=== PATIENT | female | born 1940 | race Caucasian/White ===

== ENCOUNTER 2018-03-21 14:31 | Emergency (ER) | payer MEDICARE, OTHER ==
[2018-03-21] MEDS ORDERED: SODIUM CHLORIDE 0.9% 1,000 ML IV STA ×2 (15:11)
[2018-03-21] MEDS ORDERED: MORPHINE SULFATE 2 MG/ML SYRINGE IVP ONE (15:12)
[2018-03-21] MEDS ORDERED: TOPICAL SKIN ADHESIVE 1 EACH AMP TOPICAL ONE (15:47)
[2018-03-21 16:15] LABS: Basophils % (A) 0 %; Eosinophils # (A) 0.2 k/uL (0-0.7); Eosinophils % (A) 1 %; HCT 39.9 % (34.0-46.0); HGB 13.2 gm/dL (11.4-16.0); Lymphocytes # (A) 2.7 k/uL (1.0-4.8); Lymphocytes % (A) 25 %; MCH 29.3 pg (25.0-35.0); Mean Platelet Volume 6.9; Monocytes # (A) 0.6 k/uL (0-1.0); Monocytes % (A) 5 %; Neutrophils # (A) 7.1 k/uL (1.3-7.7); Neutrophils % (A) 66 %; Platelet Count 211 k/uL (150-450); RBC 4.49 m/uL (3.80-5.40); WBC 10.8 k/uL (3.8-10.6)
[2018-03-21 16:27] LABS: INR 1.1 (<1.2); Partial Thromboplastin Time 22.4 sec (22.0-30.0); Prothrombin Time 10.3 sec (9.0-12.0)
[2018-03-21 16:31] LABS: Creatine Kinase 83 U/L (30-135)
[2018-03-21 16:33] LABS: ALT 35 U/L (9-52); AST 27 U/L (14-36); Albumin 3.8 g/dL (3.5-5.0); Alcohol <10 mg/dL; Alkaline Phosphatase 58 U/L (38-126); Anion Gap 10 mmol/L; Blood Urea Nitrogen 16 mg/dL (7-17); Calcium 9.3 mg/dL (8.4-10.2); Carbon Dioxide 26 mmol/L (22-30); Chloride 101 mmol/L (98-107); Glucose 140 mg/dL (74-99); Sodium 137 mmol/L (137-145); Total Bilirubin 0.3 mg/dL (0.2-1.3); Total Protein 6.3 g/dL (6.3-8.2)
[2018-03-21 16:44] LABS: Creatine Kinase MB 1.3 ng/mL (0.0-2.4); Troponin I <0.012 ng/mL (0.000-0.034)
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
[2018-03-21 18:39] VITALS: BP 177/70; PULSE 55; RESP 18; TEMP 97.2
== END 2018-03-21 18:38 | disposition home or self-care (01) ==
LOC: EC 14:31
DX: S61.411A Laceration without foreign body of right hand, initial encounter (principal); S20.219A Contusion of unspecified front wall of thorax, initial encounter; M54.2 Cervicalgia; R10.9 Unspecified abdominal pain; I44.0 Atrioventricular block, first degree; J44.9 Chronic obstructive pulmonary disease, unspecified; E11.9 Type 2 diabetes mellitus without complications; K21.9 Gastro-esophageal reflux disease without esophagitis; E78.5 Hyperlipidemia, unspecified; I10 Essential (primary) hypertension; I25.2 Old myocardial infarction; F41.9 Anxiety disorder, unspecified; F32.9 Major depressive disorder, single episode, unspecified; G47.30 Sleep apnea, unspecified; Z99.89 Dependence on other enabling machines and devices; Z87.01 Personal history of pneumonia (recurrent); Z87.891 Personal history of nicotine dependence; Z98.84 Bariatric surgery status; Z90.49 Acquired absence of other specified parts of digestive tract; Z90.710 Acquired absence of both cervix and uterus; Z98.890 Other specified postprocedural states; Z79.51 Long term (current) use of inhaled steroids; Z79.82 Long term (current) use of aspirin; Z79.84 Long term (current) use of oral hypoglycemic drugs; Z79.899 Other long term (current) drug therapy; Z88.2 Allergy status to sulfonamides; Z88.8 Allergy status to other drugs, medicaments and biological substances; V43.52XA Car driver injured in collision with other type car in traffic accident, initial encounter; Y92.89 Other specified places as the place of occurrence of the external cause
CPT/HCPCS: 36415; 93005; 86900; 86901; 80053; 82550; 82553; 84484; 85025; 85610; 85730; 86850; 80320; 72170; 73120; 71045; 72125; 70450; 71260; 74177; 99285; 12001; 96374; 96361 ×3; J2270; Q9967

== ENCOUNTER → 2018-08-05 | Outpatient (CLI) | payer MEDICARE, OTHER ==
[2018-08-05 14:30] VITALS: BP 145/78; PULSE 51; RESP 18
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
== END ==
LOC: PNWHC3 13:39
PROVIDERS: ATTEND Anesthesiology
DX: G89.29 Other chronic pain (principal); M54.5 Low back pain; J45.909 Unspecified asthma, uncomplicated; J44.9 Chronic obstructive pulmonary disease, unspecified; E11.9 Type 2 diabetes mellitus without complications; Z87.891 Personal history of nicotine dependence; Z88.8 Allergy status to other drugs, medicaments and biological substances; Z88.2 Allergy status to sulfonamides; Z79.899 Other long term (current) drug therapy; Z79.84 Long term (current) use of oral hypoglycemic drugs
CPT/HCPCS: 99211

== ENCOUNTER → 2018-08-24 | Day surgery (SDC) | payer MEDICARE, OTHER ==
[2018-08-18 18:32] VITALS: BMI 36.6
[~2018-08-24] MED LIST: SODIUM CHLORIDE 0.9% 500 ML 500 ML IV ONE; SODIUM CHLORIDE 0.9% 500 ML 500 ML IV SCH; hydrALAZINE HCL 20 MG/ML 1 ML VIAL IVP ONE; hydrALAZINE HCL 20 MG/ML 1 ML VIAL ONE
[2018-08-24 08:46] VITALS: TEMP 97.5
[2018-08-24 08:54] LABS: Glucose,Whole Blood 89 mg/dL (75-99)
--- NOTE | 2018-08-24 09:16 | P.PCN ---
Date of Procedure: 08/24/18 Procedure(s) Performed: PREOPERATIVE DIAGNOSIS: 1- Lumbar Degenerative Disc Diseases 2-Lumbar radiculopathy POSTOPERATIVE DIAGNOSIS: 1-Lumber Degenerative Disc Diseases 2-Lumbar radiculopathy PROCEDURE 1. Lumbar epidural steroid injection under fluoroscopic guidance at the L4-5 level. 2. Lumbar epidurogram. ANESTHESIA: Local with 1% lidocaine 3 ml and , moderate sedation with intravenous Versed 2 mg ,and fentanyle 50 Mcg EBL: Minimal PROCEDURE INDICATION: The patient with low back pain and radiculitis symptoms unresponsive to conservative treatment. Fluoroscopy was used to optimize visualization of the needle placement and to maximize safety. PROCEDURE DESCRIPTION / TECHNIQUE: The patient was seen and identified in the preoperative area. Risks, benefits , complications including but not limited to infections ,bleeding ,allergic reaction to the medications ,nerve damage and not complete pain releife , and alternatives were discussed with the patient. The patient agreed to proceed with the procedure and signed the consent. IV was started, and vital signs were stable. Patient was taken to the OR and time out was completed. The patient was placed in the prone position on procedure table and a pillow was placed under the abdomen to reduce lumbar lordosis. The lumbosacral area was prepped and draped in the usual sterile fashion.ere closely monitored during the procedure. Conscious sedation was used during the procedure to decrease patients anxiety. Vital signs was monitered during the entire procedure. Using anterior-posterior fluoroscopy, the L4-5 interlaminar space was identified and the skin over this site was marked and then infiltrated with 1% lidocaine subcutaneously. Subsequently, a 20-gauge Tuohy epidural needle was inserted and advanced toward the epidural space using the ``Loss of resistance technique and guided by AP and lateral fluoroscopy. The correct needle position in the epidural space was verified with the injection of 2 mL of the water soluble contrast dye Isovue 200 contrast and observing an excellent epidurogram with the epidural spread of the dye, after negative aspiration for blood and CSF and in the absence of paresthesias. Again after negative aspiration, a 6 ml mixture containing 40 mg of Depo-medrol , and 2 ml of preservative free Normal Saline, and 2 ml of preservative free lidocaine 1% solution was injected and a washout of epidurogram was seen. Needle was withdrawn intact, skin was cleansed, and bandages were applied. COMPLICATIONS: None DISPOSITION / PLANS: The patient was placed in a supine position and transferred to the recovery area in a stable condition for observation. There was no evidence of lower extremity motor or sensory deficit after the procedure. Patient was discharged from the recovery room after meeting discharge criteria. Home discharge instructions were given to the patient by the staff. The patient was reexamined prior to discharge. The patient will schedule a follow up in the clinic in 2-4 weeks.
[2018-08-24 09:29] VITALS: RESP 18
--- NOTE | 2018-08-24 09:30 | FL ---
EXAMINATION TYPE: FL guided pain mgmt statistic DATE OF EXAM: 08/24/2018 COMPARISON: NONE HISTORY: Back pain TECHNIQUE: Fluoroscopy. FINDINGS/IMPRESSION: Fluoroscopic guidance was provided during procedure performed by Dr. Santiago. A total of 7 seconds of fluoroscopic time was utilized during the procedure and 1 spot images was ac quired demonstrating localization of the lumbar spine.
[2018-08-24 09:53] VITALS: BP 187/104; PULSE 53
== END | disposition home or self-care (01) ==
LOC: ORPAIN 07:45
PROVIDERS: ATTEND Specialist
DX: M51.16 Intervertebral disc disorders with radiculopathy, lumbar region (principal); I10 Essential (primary) hypertension; I25.10 Atherosclerotic heart disease of native coronary artery without angina pectoris; J44.9 Chronic obstructive pulmonary disease, unspecified; Z88.2 Allergy status to sulfonamides; Z88.8 Allergy status to other drugs, medicaments and biological substances
CPT/HCPCS: 62323; J2250; J0360; J1030; J3010; Q9966; 99152

== ENCOUNTER 2018-09-08 09:06 | Day surgery (SDC) | payer MEDICARE, OTHER ==
[2018-09-04 14:49] VITALS: BMI 36.0
[~2018-09-08 09:06] MED LIST changes: -SODIUM CHLORIDE 0.9% 500 ML 500 ML IV ONE; -hydrALAZINE HCL 20 MG/ML 1 ML VIAL IVP ONE; -hydrALAZINE HCL 20 MG/ML 1 ML VIAL ONE
[2018-09-08 10:08] VITALS: RESP 16; TEMP 97.3
[2018-09-08] MEDS ORDERED: LACTATED RINGERS 1,000 ML IV ONE (10:08)
[2018-09-08 10:09] LABS: Glucose,Whole Blood 100 mg/dL (75-99)
[2018-09-08] MEDS ORDERED: LIDOCAINE 1% 20 ML VIAL (10MG/ML) FOR IV START INTRADERMA ONE (10:09)
--- NOTE | 2018-09-08 11:05 | P.PCN ---
Date of Procedure: 09/08/18 Surgeon: Shawn Kuhn Pathology: none sent Condition: stable Disposition: PACU Description of Procedure: PREOPERATIVE DIAGNOSIS: 1-Lumbar radiculopathy 2- Lumber Degenerative Disc Diseases. POSTOPERATIVE DIAGNOSIS: 1-Lumbar radiculopathy. 2-Lumbar Degenerative Disc Diseases PROCEDURE 1. Lumbar epidural steroid injection under fluoroscopic guidance at the L4-5 level. In the left paramedian approach 2. Lumbar epidurogram. ANESTHESIA: Local with 1% lidocaine; and IV moderate conscious sedation with Versed and fentanyl EBL: Minimal PROCEDURE INDICATION: The patient with low back pain and radiculitis symptoms unresponsive to conservative treatment. Fluoroscopy was used to optimize visualization of the needle placement and to maximize safety. PROCEDURE DESCRIPTION / TECHNIQUE: The patient was seen and identified in the preoperative area. Risks, benefits , complications including but not limited to infections ,bleeding ,allergic reaction to the medications ,nerve damage and not complete pain relief , and alternatives were discussed with the patient. The patient agreed to proceed with the procedure and signed the consent. IV was started, and vital signs were stable. Patient was taken to the OR and time out was completed. The patient was placed in the prone position on procedure table and a pillow was placed under the abdomen to reduce lumbar lordosis. The lumbosacral area was prepped and draped in the usual sterile fashion with ChloraPrep.Patient was closely monitored during the procedure. Conscious sedation was used during the procedure to decrease patients anxiety. Vital signs were monitered during the entire procedure. Using anterior-posterior fluoroscopy, the L4-5 interlaminar space was identified and the skin over this site was marked and then infiltrated with 1% lidocaine subcutaneously. Subsequently, a 20-gauge Tuohy epidural needle was inserted and advanced toward the epidural space using the Loss of resistance to air technique and guided by AP and lateral fluoroscopy. The correct needle position in the epidural space was verified with the injection of 1 mL of the water soluble contrast dye Omnipaque 180 contrast and observing an excellent epidurogram with the epidural spread of the dye, after negative aspiration for blood and CSF and in the absence of paresthesias. Again after negative aspiration, a 8 ml mixture containing 40 mg of Kenalog and 5 ml of preservative free Normal Saline, and 2 ml of preservative free ropivacaine 0.5% solution was injected and a washout of epidurogram was seen. Needle was withdrawn intact, skin was cleansed, and bandages were applied. patient tolerated procedure well and was transferred to PACU in stable condition. COMPLICATIONS: None
[2018-09-08] MEDS ORDERED: IV FLUID CONTINUATION 600 ML IV ONE (11:10)
--- NOTE | 2018-09-08 11:49 | FL ---
Fluoroscopy INDICATION: Pain FINDINGS: Fluoroscopy time: 11 seconds. Images obtained: 2. IMPRESSIONS: 1. Documentation of fluoroscopy.
[2018-09-08] MEDS ORDERED: hydrALAZINE HCL 20 MG/ML 1 ML VIAL IV ONE (11:53)
[2018-09-08 12:18] VITALS: BP 194/67; PULSE 54
== END 2018-09-08 12:48 | disposition home or self-care (01) ==
LOC: ORPAIN 09:06
PROVIDERS: ATTEND Anesthesiology
DX: M51.36 Other intervertebral disc degeneration, lumbar region (principal); I10 Essential (primary) hypertension; E11.9 Type 2 diabetes mellitus without complications; Z88.2 Allergy status to sulfonamides; Z88.8 Allergy status to other drugs, medicaments and biological substances
CPT/HCPCS: 62323; J2250; J0360; J3301; J3010; Q9966; 99152

== ENCOUNTER → 2018-10-30 | Outpatient (CLI) | payer MEDICARE, OTHER ==
[2018-10-30 12:46] LABS: HCT 43.2 % (34.0-46.0); HGB 13.3 gm/dL (11.4-16.0); Hypochromasia Moderate; MCH 29.3 pg (25.0-35.0); MCHC 30.9 g/dL (31.0-37.0); MCV 94.8 fL (80.0-100.0); Mean Platelet Volume 6.8; Platelet Count 234 k/uL (150-450); RBC 4.56 m/uL (3.80-5.40); RDW 15.5 % (11.5-15.5); WBC 10.9 k/uL (3.8-10.6)
[2018-10-30 12:56] LABS: Potassium 4.6 mmol/L (3.5-5.1)
== END | disposition home or self-care (01) ==
LOC: LABPAT 11:49
PROVIDERS: ATTEND Internal Medicine Cardiovascular Disease
DX: Z01.812 Encounter for preprocedural laboratory examination (principal); I25.10 Atherosclerotic heart disease of native coronary artery without angina pectoris; I10 Essential (primary) hypertension
CPT/HCPCS: 36415; 80051; 82565; 84520; 85027

== ENCOUNTER 2018-11-03 06:55 | Day surgery (SDC) | payer MEDICARE, OTHER ==
[2018-10-30 10:23] VITALS: BMI 35.6
[2018-11-03] MEDS ORDERED: SODIUM CHLORIDE 0.9% 1,000 ML in EMPTY BAG 1 BAG IV ONE (06:58)
[2018-11-03] MEDS ORDERED: ALPRAZolam 0.25 MG TAB PO PRN ×2 (06:58→10:20)
[2018-11-03] MEDS ORDERED: ALPRAZolam 0.5 MG TAB PO PRN (06:58)
[2018-11-03] MEDS ORDERED: ATORVASTATIN 80 MG TAB PO STA (06:58)
[2018-11-03] MEDS ORDERED: ASPIRIN 325 MG TAB PO STA (06:58)
[2018-11-03] MEDS ORDERED: NITROGLYCERIN SL TABS 0.4 MG TAB SUBLINGUAL PRN ×2 (06:58→10:18)
[2018-11-03 07:22] LABS: Glucose,Whole Blood 151 mg/dL (75-99)
[2018-11-03 07:59] VITALS: RESP 18
[2018-11-03] MEDS ORDERED: MIDAZOLAM 2 MG/2 ML VIAL IVP ONE (08:05)
[2018-11-03] MEDS ORDERED: fentaNYL (PF) 50 MCG/ML 2 ML AMP IVP ONE (08:05)
[2018-11-03] MEDS ORDERED: LIDOCAINE 1% INJ 10MG/ML (20 ML MDV) SQ ONE (08:07)
[2018-11-03] MEDS ORDERED: hydrALAZINE HCL 20 MG/ML 1 ML VIAL IV ONE (08:31)
[2018-11-03 08:34] LABS: O2 Sat Blood Gas 86.7 %
[2018-11-03 08:38] LABS: O2 Sat Blood Gas 47.6 %
[2018-11-03] MEDS ORDERED: IOPAMIDOL-370 50ML BTL INJ ONE (08:39)
[2018-11-03 08:40] LABS: O2 Sat Blood Gas 47.9 %
[2018-11-03] MEDS ORDERED: CLOPIDOGREL 75 MG TAB PO ONE (09:10)
[2018-11-03] MEDS ORDERED: BIVALIRUDIN BOLUS 250 MG/50 ML IV ONE (09:10)
--- NOTE | 2018-11-03 09:10 | P.CARDCATH ---
Date of Procedure: 11/03/18 Preoperative Diagnosis: Symptoms of angina and CHF with moderate to severe mitral regurgitation by echo. Postoperative Diagnosis: Moderate mitral regurgitation. Known total occlusion of the circumflex and critical lesion in the mid RCA. 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 She was found to have evidence of moderate to severe mitral regurgitation on the echo. Patient is still having symptoms of shortness of breath and tightness and advised to have a cardiac catheterization for definitive diagnosis. CONSENT:I have discussed the risks, benefits and alternative therapies for the above-mentioned procedure and for both sedation/analgesia as well as necessary blood product administration, if indicated, as they pertain to this patient. The patient has indicated understanding and acceptance of the risks and procedures discussed. PROCEDURE: Left heart catheterization: Patient was brought to the lab in a fasting state. Patient was given some IV sedation. The right groin is infiltrated with lidocaine and right femoral artery was entered using Seldinger technique. A 6-Kyrgyz catheter was left in place and selective coronary arteriography and left ventriculography was performed. Patient tolerated the procedure well. Right heart catheterization: The right femoral vein was entered using Seldinger technique, After groin is infiltrated with lidocaine . Right heart catheterization was done with [place]-Adama catheter using fluoroscopy. Patient tolerated the procedure well. Patient went on to have stent placement of the RCA by Dr. Moss. No immediate complaints were noted Conscious Sedation: Versed 0.5mg Fentanyl 12.5 g Duration 37minutes HEMODYNAMICS: The right heart catheterization: Right atrial pressure was 12 to 15: Right ventricular pressure is 45/12: Pulmonary artery pressure is 45/15. The pulmonary wedge pressure is about 15-20. Cardiac output by thermodilution method is 3 L. By Aung method is 2.38 L The left heart catheterization: The aortic pressure is about 2 170/70. Left ankle end-diastolic pressure is 15-20. There was no gradient across the aortic valve SELECTIVE CORONARY ARTERIOGRAPHY: LEFT MAIN: Normal length with mild disease THE LEFT ANTERIOR DESCENDING CORONARY ARTERY:. This is a fair caliber vessel giving rise to good-sized diagonal branch. The LAD has mild diffuse disease without any Sigmund focal lesion THE LEFT CIRCUMFLEX AND IS CORONARY ARTERY: Totally occluded proximally. Distal circumflex is filled by homocollaterals. This is a chronically lesion THE RIGHT CORONARY ARTERY:. This has 95% stenosis in midportion. There is diffuse disease involving the proximal and mid segments LEFT VENTRICULOGRAPHY:. This revealed mildly dilated left ventricle with hypokinesis of the posterior basal segment with an ejection fraction of about 30 %. Patient is also in junctional rhythm. There appears to be about 2+ mitral regurgitation FINAL IMPRESSION: Critical lesion involving the right coronary artery which is a new lesion. Chronically occluded circumflex. Mild disease involving the LAD. PLAN: Stent placement of the RCA. 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 Hopefully junctional bradycardia will improve with medical therapy. If not patient may need a permanent pacemaker implantation PROGNOSIS:. Fair
[2018-11-03] MEDS ORDERED: BIVALIRUDIN 250 MG in SODIUM CHLORIDE 0.9% 50 ML IV ONE (09:12)
[2018-11-03] MEDS ORDERED: IOPAMIDOL-370 125ML BTL INJ ONE (09:21)
[2018-11-03] MEDS ORDERED: NITROGLYCERIN 1000MCG/10ML SYRINGE INTRACORON ONE (09:39)
[2018-11-03] MEDS ORDERED: IOPAMIDOL-250 100ML BTL INTRAARTER ONE (09:51)
[2018-11-03] MEDS ORDERED: amLODIPine 5 MG TAB PO STA ×2 (10:08→13:14)
[2018-11-03] MEDS ORDERED: ZOLPIDEM 5 MG TAB PO PRN (10:18)
[2018-11-03] MEDS ORDERED: MAG HYDROX/AL HYDROX/SIMETH 30 ML CUP PO PRN (10:18)
[2018-11-03] MEDS ORDERED: RX INFO: IV CONTRAST WAS GIVEN 1 EACH MISC MISCELLANE PRN (10:18)
[2018-11-03] MEDS ORDERED: ATROPINE SULFATE 0.1 MG/ML 10ML SYRINGE IV PRN (10:18)
[2018-11-03] MEDS ORDERED: ALBUTEROL NEBULIZED 2.5 MG/3 ML INHALATION PRN (10:20)
[2018-11-03] MEDS ORDERED: SODIUM CHLORIDE 0.9% 1,000 ML IV SCH (10:30)
--- NOTE | 2018-11-03 10:49 | PTCA ---
PERCUTANEOUSTRANS CORORONARY ANGIOGRAPHY Mrs. Castro is a 78-year-old female who recently was admitted with symptoms of significant dyspnea with evidence of mitral regurgitation. She has a known history of chronic occluded left circumflex. In view of that, she underwent cardiac catheterization by Dr. Breen and was found to have no significant mitral regurgitation, but she had a critical stenosis involving the long segment of the mid right coronary artery. In view of that, recommendation was made regarding angioplasty and stenting. The procedure as well as the risks and complications were discussed with the patient who is in full understanding and agreement. PROCEDURE: A 6-Slovak FR4 guiding catheter introduced in the system. After cannulating the right coronary ostium, a 0.014 balanced medium weight J-wire was advanced in position in distal RCA. Following that, a 2.25 x 12 mm Trek balloon was advanced and inflation at 10 atmospheres was done. Following that, the balloon was removed and attempt to advance a 2.5 x 33 mm Xience Jacque stent were unsuccessful. That stent was removed and another 0.014 balanced medium weight J-wire was advanced next to the first one in a patti fashion and positioned distally. Following that attempt to advance that stent were unsuccessful and attempt to advance a 2.5 x 15 mm Xience Jacque stent were unsuccessful. The stents were removed and one of the BMW J wire were removed and a GuideLiner was introduced in the system. With the help of the GuideLiner, the 2.5 x 33 mm Xience Jcaque stent was advanced, deployed and post dilated at 16 atmospheres. Following that and after removing the balloon, a 2.5 x 8 mm Xience Jacque stent was advanced distal to the first one and deployed and post dilated at 16 atmospheres and after removing the balloon, a 3.0 x 20 mm NC Trek was advanced and 2 inflation maximum of 14 atmospheres were done. After the last inflation, after appropriate wait, the balloon and the guidewire were withdrawn back in the guiding catheter. Images were obtained, repeated. Those images reveal stable successful stenting. At that point, the guiding catheter, the balloon and the guidewire were removed. Images of the femoral artery sheath was performed and revealed evidence of AV fistula below . The femoral sheath was removed and hemostasis was obtained with deployment of an Angio- Seal. The vascular surgical evaluation will be obtained. The femoral sheath was sutured in place. At the beginning of the procedure, temporary pacemaker was inserted and pacing parameters were obtained because of a junctional bradycardia prior to the procedure. At the end procedure, the pacemaker was removed and her rhythm was back in sinus mechanism in the low 40s. Of note the patient received Angiomax per protocol as well as oral loading dose of clopidogrel. RESULTS: Successful stenting of a long segment of the mid calcified right coronary artery with reduction of stenosis from 95% to 0%. RECOMMENDATION: Patient will be continued on aspirin, Plavix, SRINIVAS inhibitor, and statin. The importance of dual antiplatelet treatment were discussed with the patient and her family who are in full understanding and agreement. We will obtain evaluation regarding her AV fistula. Duration of procedure is 53 minutes. GEORGES / VIRGIL: [id number] /
[2018-11-03 10:51] LABS: Glucose,Whole Blood 117 mg/dL (75-99)
[2018-11-03] MEDS: HYDROCHLOROTHIAZIDE 25 MG TAB PO SCH (11:20)
[2018-11-03] MEDS ORDERED: ENALAPRILAT 1.25 MG/ML 1 ML VIAL ONE (12:37)
--- NOTE | 2018-11-03 18:58 | CONS ---
DATE OF CONSULTATION: 11/03/2018 Patient had history of angina, congestive heart failure with mitral regurgitation by echo. The patient had a heart catheterization, right and left and after that the patient went for mid circumflex coronary artery stent for critical stenosis. After the heart catheterization and stenting placement, compression angiogram of the groin was performed which showed there is a communication between the femoral artery and femoral vein. PHYSICAL EXAMINATION: Patient was seen in his room, lying comfortably in bed. NECK: Supple. Trachea central. CHEST: Clear to auscultation. ABDOMEN: Soft. Femoral pulses are palpable bilateral. There is a bruit noticed on the right groin which is suggestive of an arterial venous fistula. We will review the angiography and I will discuss with Dr. Moss. At this point, patient is stable. There is no evidence of any congestive heart failure. The patient is on Plavix and aspirin and further recommendation will made after reviewing the angiography. MMODL / IJN: [id number] / SAFIA
[2018-11-03] MEDS: SYMBICORT 80-4.5 MCG INHALER INHALATION SCH (19:51)
[2018-11-03 20:28] LABS: Glucose,Whole Blood 163 mg/dL (75-99)
[2018-11-03] MEDS: CALCIUM CARBONATE 500 MG CHEWABLE PO SCH (20:53)
[2018-11-03] MEDS: amLODIPine 5 MG TAB PO SCH (20:53)
[2018-11-03] MEDS: LOSARTAN 25 MG TAB PO SCH (20:53)
[2018-11-03] MEDS ORDERED: MONTELUKAST 10 MG TAB PO SCH (21:00)
[2018-11-04 02:41] VITALS: PULSE 44
[2018-11-04 04:30] VITALS: TEMP 98
[2018-11-04 05:34] LABS: Glucose,Whole Blood 116 mg/dL (75-99)
[2018-11-04 05:50] LABS: Basophils % (A) 0 %; Eosinophils # (A) 0.2 k/uL (0-0.7); Eosinophils % (A) 2 %; HCT 40.5 % (34.0-46.0); HGB 12.7 gm/dL (11.4-16.0); Lymphocytes # (A) 3.8 k/uL (1.0-4.8); Lymphocytes % (A) 33 %; MCH 29.1 pg (25.0-35.0); MCHC 31.3 g/dL (31.0-37.0); MCV 92.9 fL (80.0-100.0); Mean Platelet Volume 6.9; Monocytes # (A) 0.6 k/uL (0-1.0); Monocytes % (A) 5 %; Neutrophils # (A) 6.5 k/uL (1.3-7.7); Neutrophils % (A) 58 %; Platelet Count 173 k/uL (150-450); RBC 4.36 m/uL (3.80-5.40); RDW 15.4 % (11.5-15.5); WBC 11.3 k/uL (3.8-10.6)
[2018-11-04 05:57] LABS: Calcium 9.1 mg/dL (8.4-10.2); Potassium 3.5 mmol/L (3.5-5.1)
[2018-11-04] MEDS ORDERED: PANTOPRAZOLE 40 MG TABLET PO SCH (07:30)
[2018-11-04] MEDS: SYMBICORT 80-4.5 MCG INHALER INHALATION SCH (08:03)
[2018-11-04] MEDS ORDERED: ATORVASTATIN 80 MG TAB PO SCH (09:00)
[2018-11-04] MEDS ORDERED: NON-FORMULARY DRUG (Omega-3 Fatty Acids/Fish Oil [Fish Oil 1,000 Mg Softgel] 1 EACH) PO SCH (09:00)
[2018-11-04] MEDS ORDERED: SERTRALINE 50 MG TAB PO SCH (09:00)
[2018-11-04] MEDS ORDERED: ASPIRIN 81 MG PO SCH (09:00)
[2018-11-04] MEDS ORDERED: FERROUS SULFATE 325 MG TAB PO SCH (09:00)
[2018-11-04] MEDS ORDERED: CLOPIDOGREL 75 MG TAB PO SCH (09:00)
--- NOTE | 2018-11-04 09:02 | PN ---
PROGRESS NOTE Mrs. Castro is a 78-year-old female with history of hypertension, hyperlipidemia, underwent cardiac catheterization by Dr. Breen yesterday and was found to have severe obstructive disease involving the right coronary artery, underwent stenting of that vessel. She was found to have evidence of AV fistula on the femoral angiogram. She was seen by Dr. Irene yesterday and observation at this time is recommended. She is feeling well this morning. She is denying any chest pain. Her breathing has been stable. She denies any dizziness or palpitation. She denies any nausea. She continues to be on amlodipine 5 mg twice a day, aspirin 81 mg daily, Lipitor 80 mg daily, Plavix 75 mg daily, hydrochlorothiazide 25 mg daily, losartan 75 mg twice a day. PHYSICAL EXAMINATION: Blood pressure 150/80 with the heart rate in the 50s. LUNGS: Clear. HEART: Regular rate and rhythm, S1, S2. No S3 with systolic murmur. No diastolic murmur. No rub. ABDOMEN: Soft, obese, nontender. Right groin: No hematoma, bruit noted. LAB DATA: Lab data revealed BUN and creatinine 14 and 0.75, potassium 3.5, hemoglobin of 12.7. IMPRESSION: 1. Status post stenting of the right coronary artery. 2. AV fistula. 3. Hypertension. 4. Hyperlipidemia. RECOMMENDATION: Patient should be able to be discharged home today and follow as an outpatient with Dr. Breen. She will also be followed in regard to her AV fistula and further adjustment of her medical regimen will be made. MMODL / IJN: [id number] /
[2018-11-04] MEDS: LOSARTAN 25 MG TAB PO SCH (09:38)
[2018-11-04] MEDS: HYDROCHLOROTHIAZIDE 25 MG TAB PO SCH (09:39)
[2018-11-04] MEDS: CALCIUM CARBONATE 500 MG CHEWABLE PO SCH (09:39)
[2018-11-04] MEDS: amLODIPine 5 MG TAB PO SCH (09:42)
[2018-11-04 09:50] VITALS: BP 159/68
== END 2018-11-04 10:57 | disposition home or self-care (01) ==
LOC: CATHCVL 06:55 → 3SCARD 14:16 → CATHCVL 11-04 10:57
PROVIDERS: ATTEND Internal Medicine Cardiovascular Disease
DX: I25.119 Atherosclerotic heart disease of native coronary artery with unspecified angina pectoris (principal); I77.0 Arteriovenous fistula, acquired; I25.82 Chronic total occlusion of coronary artery; E78.5 Hyperlipidemia, unspecified; I11.0 Hypertensive heart disease with heart failure; E78.00 Pure hypercholesterolemia, unspecified; E11.9 Type 2 diabetes mellitus without complications; I50.9 Heart failure, unspecified; I34.0 Nonrheumatic mitral (valve) insufficiency; Z79.02 Long term (current) use of antithrombotics/antiplatelets; Z79.82 Long term (current) use of aspirin; Z79.899 Other long term (current) drug therapy; Z82.49 Family history of ischemic heart disease and other diseases of the circulatory system; Z72.0 Tobacco use; Z79.51 Long term (current) use of inhaled steroids; Z79.84 Long term (current) use of oral hypoglycemic drugs; Z88.2 Allergy status to sulfonamides
CPT/HCPCS: 94640 ×2; 93460; 80048; 85018; 82810; 85025; C9600; C1769 ×3; C1760; C1887 ×2; C1725 ×2; C1894 ×2; C1874; J2250; J0360; J2001; J3010; J0583; Q9966; Q9967 ×2

== ENCOUNTER 2018-11-06 14:24 | Inpatient (IN) | payer MEDICARE, OTHER ==
[2018-11-06] MEDS ORDERED: HEPARIN SODIUM,PORCINE 5,000 UNIT/ML 1 ML VIAL IV PRN (14:34)
[2018-11-06] MEDS ORDERED: NITROGLYCERIN SL TABS 0.4 MG TAB SUBLINGUAL PRN (14:34)
[2018-11-06] MEDS ORDERED: HEPARIN SODIUM,PORCINE 5,000 UNIT/ML 1 ML VIAL IV ONE (14:34)
[2018-11-06] MEDS ORDERED: DILTIAZEM DRIP BOLUS FROM BAG 1 MG SOLN IV ONE (14:34)
[2018-11-06] MEDS ORDERED: SODIUM CHLORIDE 0.9% 1,000 ML IV STA (14:34)
--- NOTE | 2018-11-06 14:41 | ED ---
Chest Pain HPI - General Chief Complaint: Chest Pain Stated Complaint: Arrhythmia Time Seen by Provider: 11/06/18 14:34 Source: patient Mode of arrival: ambulatory Limitations: no limitations - History of Present Illness MD Complaint: chest pain, other (sob) Pain Location: left chest Pain Radiation: LUE Severity: moderate Severity scale (1-10): 3 Consistency: constant Improves With: nothing Worsens With: nothing Other Symptoms: palpitations - Related Data Home Medications Medication Instructions Recorded Confirmed Albuterol Nebulized [Ventolin 2.5 mg INHALATION Q6H PRN 08/17/14 11/03/18 Nebulized] Fluticasone/Salmeterol [Advair 1 puff INHALATION RT-BID 08/17/14 11/03/18 250-50 Diskus] Omeprazole [PriLOSEC] 20 mg PO AC-BRKFST 08/17/14 11/03/18 Sertraline [Zoloft] 50 mg PO DAILY 08/17/14 11/03/18 ALPRAZolam [Xanax] 0.25 mg PO DAILY PRN 03/21/18 11/03/18 Calcium Citrate 250 mg PO BID 03/21/18 11/03/18 Cyanocobalamin [Vitamin B-12] 500 mcg PO DAILY 03/21/18 11/03/18 Montelukast Sodium [Singulair] 10 mg PO HS 03/21/18 11/03/18 Multivitamins, Thera [Multivitamin 1 tab PO DAILY 03/21/18 11/03/18 (formulary)] Ferrous Sulfate [Feosol] 325 mg PO DAILY 08/05/18 11/03/18 metFORMIN HCL [Glucophage] 850 mg PO BID 08/05/18 11/03/18 Aspirin EC [Ecotrin Low Dose] 81 mg PO DAILY 10/30/18 11/03/18 Furosemide [Lasix] 20 mg PO DAILY 10/30/18 11/03/18 [place]-3 Fatty Acids/Fish Oil [Fish 1 each PO DAILY 10/30/18 11/03/18 Oil 1,000 mg Softgel] Previous Rx's Medication Instructions Recorded Atorvastatin [Lipitor] 80 mg PO DAILY #90 tab 11/04/18 Clopidogrel [Plavix] 75 mg PO DAILY #90 tab 11/04/18 Hydrochlorothiazide 25 mg PO DAILY #30 tablet 11/04/18 Nitroglycerin Sl Tabs [Nitrostat] 0.4 mg SUBLINGUAL Q5M PRN #25 tab 11/04/18 Olmesartan [Benicar] 40 mg PO DAILY #90 tab 11/04/18 amLODIPine [Norvasc] 5 mg PO BID #180 tab 11/04/18 Allergies Allergy/AdvReac Type Severity Reaction Status Date / Time Sulfa (Sulfonamide Allergy Unknown Verified 11/06/18 14:31 Antibiotics) Childhood heparin AdvReac bloody nose Verified 11/06/18 14:31 Review of Systems ROS Statement: Those systems with pertinent positive or pertinent negative responses have been documented in the HPI. ROS Other: All systems not noted in ROS Statement are negative. EKG Findings - EKG Comments: EKG Findings:: EKG shows A. fib with RVR rate 1.2, QRS 222, QRS 104, QTC 513 Past Medical History Past Medical History: Asthma, COPD, Diabetes Mellitus, GERD/Reflux, Hyperlipidemia, Hypertension, Myocardial Infarction (CT), Osteoarthritis (OA), Pneumonia, Sleep Apnea/CPAP/BIPAP Additional Past Medical History / Comment(s): Pneumonia-2012. NOT ABLE to use CPAP. Frequent ANKLE EDEMA. States has "heart blockage." chronic blockage of the Cirr. pt has a slow heart rate-alvaro. PAIN LOWER BACK W/ SCIATICA RT SIDE. OCC NT LENARD FEET. Swelling in both lower extem. See Dr. Breen H&P. Hospitaized in 2017. 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 Cataract surg. GASTRIC SLEEVE. CARDIAC CATH X2. EPIDURAL INJ X2, Sinus surgery, 2 stents to the RCA. Past Anesthesia/Blood Transfusion Reactions: No Reported Reaction Date of Last Stent Placement:: 11/03/18 Past Psychological History: Anxiety, Depression Smoking Status: Former smoker Past Alcohol Use History: Rare Past Drug Use History: None Reported - Past Family History Brother(s) Family Medical History: Cancer Additional Family Medical History / Comment(s): 5 BROTHER'S Father Family Medical History: Myocardial Infarction (CT) General Exam Limitations: no limitations General appearance: alert, in no apparent distress Head exam: Present: atraumatic, normocephalic, normal inspection Eye exam: Present: normal appearance, PERRL, EOMI. Absent: scleral icterus, conjunctival injection, periorbital swelling ENT exam: Present: normal exam, mucous membranes moist Neck exam: Present: normal inspection. Absent: tenderness, meningismus, lymphadenopathy Respiratory exam: Present: normal lung sounds bilaterally. Absent: respiratory distress, wheezes, rales, rhonchi, stridor Cardiovascular Exam: Present: tachycardia, irregular rhythm, normal heart sounds. Absent: systolic murmur, diastolic murmur, rubs, gallop, clicks GI/Abdominal exam: Present: soft, normal bowel sounds. Absent: distended, tenderness, guarding, rebound, rigid Extremities exam: Present: normal inspection, full ROM, normal capillary refill. Absent: tenderness, pedal edema, joint swelling, calf tenderness Back exam: Present: normal inspection Neurological exam: Present: alert, oriented X3, CN II-XII intact Psychiatric exam: Present: normal affect, normal mood Skin exam: Present: warm, dry, intact, normal color. Absent: rash Course Vital Signs 11/06/18 14:29 Temperature 97.5 F L Pulse Rate 93 Respiratory 20 Rate Blood Pressure 153/74 O2 Sat by Pulse 99 Oximetry - Reevaluation(s) Reevaluation #1: 11/06/18 14:39 Medical record reviewed Reevaluation #2: 11/06/18 14:[address] Joyce regarding patient, Dr. Joyce ceased patient in office with heart rate A. fib with RVR 130s Disposition Clinical Impression: Atrial fibrillation with RVR Disposition: ADMITTED IP TO THIS HOSP Condition: Good Is patient prescribed a controlled substance at d/c from ED?: No
[2018-11-06] MEDS ORDERED: HEPARIN SOD,PORK IN 0.45% NACL 25,000 UNIT in 0.45% NACL 1 250ML.BAG IV SCH (14:45)
[2018-11-06] MEDS ORDERED: DILTIAZEM 50 MG in SODIUM CHLORIDE 0.9% 40 ML IV SCH (14:45)
[2018-11-06] MEDS ORDERED: DILTIAZEM 125 MG in SODIUM CHLORIDE 0.9% 100 ML IV SCH (15:00)
[2018-11-06 15:21] LABS: Basophils % (A) 0 %; Eosinophils # (A) 0.1 k/uL (0-0.7); Eosinophils % (A) 1 %; HGB 13.8 gm/dL (11.4-16.0); Lymphocytes # (A) 2.4 k/uL (1.0-4.8); Lymphocytes % (A) 20 %; MCH 29.3 pg (25.0-35.0); MCV 91.4 fL (80.0-100.0); Mean Platelet Volume 6.8; Monocytes # (A) 0.6 k/uL (0-1.0); Monocytes % (A) 5 %; Neutrophils # (A) 8.5 k/uL (1.3-7.7); Neutrophils % (A) 73 %; Platelet Count 169 k/uL (150-450); RDW 15.5 % (11.5-15.5); WBC 11.8 k/uL (3.8-10.6)
--- NOTE | 2018-11-06 15:25 | XR ---
EXAMINATION TYPE: XR chest 2V DATE OF EXAM: 11/06/2018 COMPARISON: Chest x-ray March 21, 2018 HISTORY: Atrial fibrillation and dysrhythmia. TECHNIQUE: Frontal and lateral views of the chest are obtained. FINDINGS: There is chronic frontal change without suspicious new focal air space opacity, pleural ef fusion, or pneumothorax seen. The cardiac silhouette size remains enlarged without a cirrhotic thora cic aorta. The osseous structures are somewhat demineralized. Underlying scoliosis centered in the upper lumbar spine is partially imaged. IMPRESSION: Cardiomegaly without acute pulmonary process. No significant change from prior.
[2018-11-06 15:34] LABS: ALT 34 U/L (9-52); AST 27 U/L (14-36); Albumin 4.2 g/dL (3.5-5.0); Alkaline Phosphatase 53 U/L (38-126); Anion Gap 9 mmol/L; Blood Urea Nitrogen 12 mg/dL (7-17); Calcium 9.9 mg/dL (8.4-10.2); Carbon Dioxide 25 mmol/L (22-30); Chloride 104 mmol/L (98-107); Glucose 135 mg/dL (74-99); Magnesium 1.7 mg/dL (1.6-2.3); Potassium 3.8 mmol/L (3.5-5.1); Sodium 138 mmol/L (137-145); Total Bilirubin 0.8 mg/dL (0.2-1.3)
[2018-11-06 15:43] LABS: Prothrombin Time 10.9 sec (9.0-12.0)
[2018-11-06 15:46] LABS: Partial Thromboplastin Time 21.1 sec (22.0-30.0)
[2018-11-06 16:04] LABS: Troponin I 0.079 ng/mL (0.000-0.034)
[2018-11-06 17:07] VITALS: BMI 34.0
--- NOTE | 2018-11-06 17:16 | CONS ---
CONSULTATION Mrs. Castro is a 78-year-old female who presented to the emergency room with symptoms of palpitations. The patient was admitted to the hospital last Friday for evaluation by Dr. Breen. She has a known history of chronic occlusion of the left circumflex and was having progressive symptoms of dyspnea. She was recently in the hospital and there was a question of moderate to severe mitral regurgitation. She underwent cardiac catheterization and was found to have critical stenosis in the LAD with no significant mitral regurgitation. Subsequently she underwent stenting of her right coronary artery. At the time of her procedure the ejection fraction was 30%, but she only had 2+ mitral regurgitation. Prior to the angioplasty, she was in junctional rhythm. After the angioplasty, she went back into sinus mechanism but with bradycardia. She used to be on Cardizem and atenolol. That was stopped prior to the discharge. She went home and was feeling better. Her breathing was better, but this morning she woke up with palpitations with rapid heartbeat, dizziness and dyspnea. She came into the emergency room and was noted to be in atrial fibrillation with rapid ventricular response. The patient has no prior documented history of atrial fibrillation. She has no peripheral edema. No syncope. No chest discomfort. No clear PND or orthopnea. Her coronary risk factors are remarkable for hyperlipidemia and diabetes as well as hypertension. She is a nonsmoker. Her medications include: 1. Aspirin 81 mg daily. 2. Lipitor 80 mg daily. 3. Plavix 75 mg daily. 4. Hydrochlorothiazide 25 mg daily. 5. Singulair. 6. Benicar 40 mg daily. 7. Zoloft. 8. Amlodipine 5 mg twice a day. 9. Metformin. REVIEW OF SYSTEMS: RESPIRATORY SYSTEM: She had dyspnea on exertion and recent wheezing and cough. GI SYSTEM: No recent GI bleeding. No peptic ulcer disease. SYSTEM: No dysuria or hematuria. NERVOUS SYSTEM: No stroke or seizure. At the end of her cardiac catheterization she was found to have an AV fistula and was evaluated by Dr. Irene. The plan was to follow her as an outpatient. PHYSICAL EXAMINATION: She is a 78-year-old female, alert, oriented, in no apparent distress. Blood pressure 156/100 with a heart rate in the 100s. HEAD: Normocephalic. Eyes: Sclerae anicteric. NECK: Good carotid upstroke. No bruit. No jugular venous distention. LUNGS: Clear to auscultation. HEART: Irregularly irregular. S1, S2. No S3 with a systolic murmur heard at the base. No diastolic murmur. No rub. ABDOMEN: Soft, nontender. Positive bowel sounds. No organomegaly. EXTREMITIES: No edema. Intact distal pulses. A bruit was noted in the right femoral area. EKG revealed atrial fibrillation with a rapid ventricular response and nonspecific ST-T wave changes. Chest x-ray shows no evidence of acute infiltrate. IMPRESSION: 1. Atrial fibrillation not diagnosed in the past with rapid ventricular response, most likely worse with the fact that the patient is off her Cardizem and beta amirah. 2. Status post recent stenting of the right coronary artery with a drug-eluting stent. 3. History of hypertension. 4. Cardiomyopathy. 5. Hyperlipidemia. 6. Hypertension. 7. AV fistula in the right femoral vein/femoral artery. RECOMMENDATIONS: From the cardiac standpoint, the patient has been started on IV Cardizem and will restart the beta amirah. I will continue on the angiotensin receptor amirah and the statin in addition to the aspirin and the Plavix. Her pattern is highly suggestive of sick sinus syndrome with tachybrady evidence and most likely will require permanent pacemaker implantation. Will follow the rest of her lab data, and depending on her progress and her ventricular response, further recommendations will be made regarding the timing of the intervention. I have discussed those findings with the patient and her family, and they are in full understanding and agreement. Thank you for this consult. Will follow with you. DELFINAODL / IJN: [id number] /
[2018-11-06 18:06] LABS: Glucose,Whole Blood 121 mg/dL (75-99)
--- NOTE | 2018-11-06 18:08 | P.HPIM ---
History of Present Illness H&P Date: 11/06/18 Chief Complaint: New onset atrial fibrillation with RVR This is a pleasant 78-year-old lady known to my practice. She has underlying history of CAD, mild persistent asthma, mitral regurgitation and tricuspid regurgitation, pulmonary hypertension, who was recently studied for her shortness of breath, required a cardiac catheter showing 95% stenosis of the RCA , requiring that the patient's intervention on the proximal and mid segments performed by Dr. Moss on 11/03/2018. She also had a small AV fistula on the femoral area requiring consultation to Dr. Irene this November 11, 2018. She was seen by myself for hospital follow-up today, and with routine examination, she has tachycardia and irregular heart rate on physical examination, EKG showed atrial fibrillation, with RVR heart rate 148 2/111, This is new onset atrial fibrillation, patient has been having mild shortness of breath and tremors, and lightheadedness, as well as palpitations. During her last cardiac catheterization, she was also noted to have junctional bradycardia, with a temporary pacemaker placed hence her metoprolol was discontinued. She was discharged to home after her cardiac catheter in stable condition. There is no signs of pseudoaneurysm on her right groin, no significant bleeding on the right groin area where percutaneous intervention access was made, how ever in view off the junctional bradycardia recently and A. fib with RVR, requiring anticoagulation, along with her AV fistula in the right femoral area, with discussed this with Dr. Davenport from the cardiology office who recommended the patient be admitted emergency room we have attempted to get Dr. Breen or Dr. Moss, Dr. Irene however they're not available for phone consultation at that time. We've notified the ER physician as well as the patient was transported via private car by her daughter. Patient denies any current chest pain, she has some lightheadedness, and some tremors. No melena and hematochezia Review of Systems Constitutional: Reports as per HPI, Denies anorexia, Denies chills, Denies chronic headaches, Denies chronic pain, Denies daytime sleepiness, Denies fatigue, Denies fever, Denies lethargy, Denies malaise, Denies night sweats, Denies poor appetite, Denies sweats, Denies weakness, Denies weight gain, Denies weight loss Ears, nose, mouth and throat: Reports as per HPI, Denies ant. neck pain, Denies bleeding gums, Denies dental pain, Denies dysphagia, Denies epistaxis, Denies headache, Denies hoarseness, Denies mouth pain, Denies nasal congestion, Denies nasal discharge, Denies neck fullness/pressure, Denies neck lump, Denies nose pain, Denies odynophagia, Denies post-nasal drip, Denies sinus pain, Denies sinus pressure, Denies swelling in mouth, Denies swelling in throat, Denies sore throat, Denies vertigo, Denies voice changes Cardiovascular: Reports as per HPI, Reports decreased exercise tolerance, Reports irregular heart beat, Reports lightheadedness, Reports shortness of breath, Denies chest pain, Denies claudication, Denies dyspnea on exertion, Denies edema, Denies high blood pressure, Denies leg edema, Denies orthopnea, Denies palpitations, Denies paroxysmal nocturnal dyspnea, Denies phlebitis, Denies rapid heart beat, Denies syncope Respiratory: Reports as per HPI, Denies congestion, Denies cough, Denies cough with sputum, Denies dyspnea, Denies excessive sputum, Denies hemoptysis, Denies home oxygen, Denies pain, Denies pain on inspiration, Denies pleurisy, Denies respiratory infections, Denies sleep apnea, Denies snoring, Denies wheezing Gastrointestinal: Reports as per HPI, Denies abdominal pain, Denies belching, Denies bloating, Denies BRBPR, Denies change in bowel habits, Denies coffee ground emesis, Denies constipation, Denies diarrhea, Denies dyspepsia, Denies early satiety, Denies excessive gas, Denies heartburn, Denies hematemesis, Denies hematochezia, Denies indigestion, Denies jaundice, Denies lactose intolerance, Denies loss of appetite, Denies melena, Denies nausea, Denies vomiting Genitourinary: Reports as per HPI, Denies abnormal vaginal bleeding, Denies decreased libido, Denies difficulty conceiving, Denies difficulty voiding, Denies dysmenorrhea, Denies dyspareunia, Denies dysuria, Denies flank pain, Denies genital sores, Denies hematuria, Denies hot flashes, Denies incomplete emptying, Denies kidney stones, Denies menorrhagia, Denies mixed incontinence, Denies nocturia, Denies pelvic pain, Denies post void dribbling, Denies , Denies prolapse symptoms, Denies stress incontinence, Denies urge incontinence , Denies urgency, Denies urinary frequency, Denies vaginal discharge, Denies vaginal dryness, Denies vaginal itching, Denies vaginal odor Menstruation: Reports as per HPI, Denies amenorrhea, Denies amenorrhea on BC, Denies currently menstrual, Denies cycle < 21 days, Denies cycle > 35 days, Denies cycle variable, Denies menses 1-7 days, Denies menses 8 or > days, Denies menses variable, Denies period heavy, Denies period light, Denies period normal, Denies period spotting, Denies post hysterectomy, Denies postmenopausal , Denies premenarcheal Musculoskeletal: Reports as per HPI, Reports muscle cramps, Denies arm numbness/ tingling, Denies atrophy, Denies fractures, Denies frequent falls, Denies gait dysfunction, Denies hot joints, Denies leg numbness/tingling, Denies limitation of motion, Denies loss of height, Denies low back pain, Denies morning stiffness , Denies muscle weakness, Denies myalgias, Denies neck pain, Denies neck stiffness, Denies prior amputations, Denies redness of joints, Denies shooting arm pain, Denies shooting leg pain Integumentary: Reports as per HPI, Denies acne, Denies boils, Denies brittle nails, Denies change in hair/nails, Denies color changes, Denies darkening of skin, Denies depigmentation, Denies dryness, Denies foot/leg ulcers, Denies growths, Denies hirsutism, Denies lesions, Denies onychomycosis, Denies pruritus , Denies rash, Denies sores, Denies striae, Denies unusual bruising, Denies wounds Neurological: Reports as per HPI, Denies aphasia, Denies ataxia, Denies balance difficulties, Denies burning pain, Denies change in mentation, Denies change in smell/taste, Denies change in speech, Denies confusion, Denies convulsions, Denies double vision, Denies gait dysfunction, Denies head injury, Denies headaches, Denies hearing difficulties, Denies lack of coordination, Denies loss of vision, Denies memory loss, Denies migraines, Denies motor disturbance, Denies numbness, Denies paralysis, Denies paresthesias, Denies seizures, Denies sensory deficit, Denies spasticity, Denies syncope, Denies tic, Denies tingling , Denies transient paralysis, Denies tremors, Denies vertigo, Denies weakness, Denies visual changes Psychiatric: Reports as per HPI, Denies anhedonia, Denies anxiety, Denies anxiety attacks, Denies change in appetite, Denies change in libido, Denies change in sleep habits, Denies confusion, Denies depression, Denies difficulty concentrating, Denies disorientation, Denies hallucinations, Denies hopelessness , Denies hypersomnia, Denies insomnia, Denies irritability, Denies memory loss, Denies mood swings, Denies paranoia, Denies sadness/tearfulness, Denies sleep disturbances, Denies suicidal ideation Endocrine: Reports as per HPI, Reports cold intolerance, Denies deepening of the voice, Denies excessive sweating, Denies excessive thirst, Denies fatigue, Denies flushing, Denies heat intolerance, Denies high blood sugars, Denies increase in ring/shoe/hat size, Denies low blood sugars, Denies nocturia, Denies palpitations, Denies polydipsia, Denies polyphagia, Denies polyuria, Denies proptosis, Denies recent glucocorticoid use, Denies thyroid mass, Denies weight change Hematologic/Lymphatic: Reports as per HPI, Denies easy bleeding, Denies easy bruising, Denies lymphadenopathy, Denies lymphedema, Denies thrombophilia Allergic/Immunologic: Reports as per HPI, Denies allergic rhinitis, Denies anaphylaxis, Denies angioedema, Denies gluten intolerance, Denies persistent infections, Denies seasonal allergies, Denies urticaria, Denies wheezing Past Medical History Past Medical History: Asthma, Coronary Artery Disease (CAD), COPD, Diabetes Mellitus, GERD/Reflux, Hyperlipidemia, Hypertension, Myocardial Infarction (MS) , Osteoarthritis (OA), Pneumonia, Sleep Apnea/CPAP/BIPAP Additional Past Medical History / Comment(s): Pneumonia-2013. NOT ABLE to use CPAP. States has "heart blockage." chronic blockage of the Cirr. pt has hx slow heart rate-alvaro. PAIN LOWER BACK W/ SCIATICA RT SIDE. OCC NT LENARD FEET See Dr. Breen has had a pne vaccine in past not sure of date-instructional writer unable to verify datre at time of admit.please f/u in amH&P. 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 Cataract surg. lap band 2008-since removed then had GASTRIC SLEEVE done. CARDIAC CATH X2 "2 stents rca"most recent heart cath 3 days ago EPIDURAL INJ X2 , Sinus surgery, 2 stents to the RCA. Past Anesthesia/Blood Transfusion Reactions: No Reported Reaction Date of Last Stent Placement:: 11/03/18 Smoking Status: Former smoker - Past Family History Brother(s) Family Medical History: Cancer Additional Family Medical History / Comment(s): 5 BROTHER'S Father Family Medical History: Myocardial Infarction (MS) Medications and Allergies Home Medications Medication Instructions Recorded Confirmed Type Albuterol Nebulized [Ventolin 2.5 mg INHALATION RT-QID PRN 08/17/14 11/06/18 History Nebulized] Fluticasone/Salmeterol [Advair 1 puff INHALATION RT-BID 08/17/14 11/06/18 History 250-50 Diskus] Omeprazole [PriLOSEC] 20 mg PO AC-BRKFST 08/17/14 11/06/18 History Sertraline [Zoloft] 50 mg PO DAILY 08/17/14 11/06/18 History ALPRAZolam [Xanax] 0.25 mg PO DAILY PRN 03/21/18 11/06/18 History Calcium Citrate 250 mg PO BID 03/21/18 11/06/18 History Cyanocobalamin [Vitamin B-12] 500 mcg PO DAILY 03/21/18 11/06/18 History Montelukast Sodium [Singulair] 10 mg PO HS 03/21/18 11/06/18 History Multivitamins, Thera [Multivitamin 1 tab PO DAILY 03/21/18 11/06/18 History (formulary)] Ferrous Sulfate [Feosol] 325 mg PO DAILY 08/05/18 11/06/18 History metFORMIN HCL [Glucophage] 850 mg PO BID 08/05/18 11/06/18 History Aspirin EC [Ecotrin Low Dose] 81 mg PO DAILY 10/30/18 11/06/18 History Holcomb-3 Fatty Acids/Fish Oil [Fish 1 cap PO DAILY 10/30/18 11/06/18 History Oil 1,000 mg Softgel] Atorvastatin [Lipitor] 80 mg PO DAILY #90 tab 11/04/18 11/06/18 Rx Clopidogrel [Plavix] 75 mg PO DAILY #90 tab 11/04/18 11/06/18 Rx Hydrochlorothiazide 25 mg PO DAILY #30 tablet 11/04/18 11/06/18 Rx Nitroglycerin Sl Tabs [Nitrostat] 0.4 mg SUBLINGUAL Q5M PRN #25 tab 11/04/1805/17 Rx Olmesartan [Benicar] 40 mg PO DAILY #90 tab 11/04/18 11/06/18 Rx amLODIPine [Norvasc] 5 mg PO BID #180 tab 11/04/18 11/06/18 Rx Allergies Allergy/AdvReac Type Severity Reaction Status Date / Time Sulfa (Sulfonamide Allergy Unknown Verified 11/06/18 15:20 Antibiotics) Childhood heparin AdvReac bloody nose Verified 11/06/18 15:20 Physical Exam Vitals: Vital Signs Temp Pulse Pulse Resp BP Pulse Ox 11/06/18 16:59 97.9 F 11/06/18 16:55 98.0 F 11/06/18 16:39 94 98 18 158/77 98 11/06/18 16:30 95 20 157/77 98 11/06/18 16:00 93 13 178/87 96 11/06/18 15:30 101 H 20 156/100 96 11/06/18 15:00 96 20 153/100 95 11/06/18 14:29 97.5 F L 93 20 153/74 99 Intake and Output 11/06/18 11/06/18 11/06/18 06:59 14:59 22:59 Other: Weight 84.368 kg - Constitutional General appearance: average body habitus, cooperative, no acute distress - EENT Eyes: anicteric sclerae, EOMI, PERRLA, dentition normal, normal appearance ENT: hearing grossly normal, NA/AT, normal oropharynx - Neck Neck: normal ROM Thyroid: bilateral: normal size, negative: enlarged, firm - Respiratory Respiratory: bilateral: CTA, negative: diminished, dullness, rales - Cardiovascular Rhythm: irregularly irregular Heart sounds: normal: S1, S2 Abnormal Heart Sounds: systolic murmur, no diastolic murmur, no rub, no S3 Gallop, no S4 Gallop, no click, no other - Integumentary Integumentary: decreased turgor, normal - Neurologic Neurologic: CNII-XII intact, focal deficits (none) - Musculoskeletal Musculoskeletal: gait normal, generalized weakness, strength equal bilaterally - Psychiatric Psychiatric: A&O x's 3, appropriate affect, intact judgment & insight Results CBC & Chem 7: 11/06/18 15:04 11/06/18 15:04 Labs: Abnormal Lab Results - Last 24 Hours (Table) 11/06/18 11/06/18 11/06/18 Range/Units 15:04 15: 15:04 WBC 11.8 H (3.8-10.6) k/uL Neutrophils # 8.5 H (1.3-7.7) k/uL APTT (22.0-30.0) sec Glucose 135 H (74-99) mg/dL Troponin I 0.079 H* (0.000-0.034) ng/mL 11/06/18 Range/Units 15:04 WBC (3.8-10.6) k/uL Neutrophils # (1.3-7.7) k/uL APTT 21.1 L (22.0-30.0) sec Glucose (74-99) mg/dL Troponin I (0.000-0.034) ng/mL Laboratory Results WBC 11.8 k/uL (3.8-10.6) H 11/06/18 15:04 RBC 4.70 m/uL (3.80-5.40) 11/06/18 15:04 Hgb 13.8 gm/dL (11.4-16.0) 11/06/18 15:04 Hct 43.0 % (34.0-46.0) 11/06/18 15:04 MCV 91.4 fL (80.0-100.0) 11/06/18 15:04 MCH 29.3 pg (25.0-35.0) 11/06/18 15:04 MCHC 32.0 g/dL (31.0-37.0) 11/06/18 15:04 RDW 15.5 % (11.5-15.5) 11/06/18 15:04 Plt Count 169 k/uL (150-450) 11/06/18 15:04 Neutrophils % 73 % 11/06/18 15:04 Lymphocytes % 20 % 11/06/18 15:04 Monocytes % 5 % 11/06/18 15:04 Eosinophils % 1 % 11/06/18 15:04 Basophils % 0 % 11/06/18 15:04 Neutrophils # 8.5 k/uL (1.3-7.7) H 11/06/18 15:04 Lymphocytes # 2.4 k/uL (1.0-4.8) 11/06/18 15:04 Monocytes # 0.6 k/uL (0-1.0) 11/06/18 15:04 Eosinophils # 0.1 k/uL (0-0.7) 11/06/18 15:04 Basophils # 0.0 k/uL (0-0.2) 11/06/18 15:04 PT 10.9 sec (9.0-12.0) 11/06/18 15:04 INR 1.0 (<1.2) 11/06/18 15:04 APTT 21.1 sec (22.0-30.0) L 11/06/18 15:04 Sodium 138 mmol/L (137-145) 11/06/18 15:04 Potassium 3.8 mmol/L (3.5-5.1) 11/06/18 15:04 Chloride 104 mmol/L (98-107) 11/06/18 15:04 Carbon Dioxide 25 mmol/L (22-30) 11/06/18 15:04 Anion Gap 9 mmol/L 11/06/18 15:04 BUN 12 mg/dL (7-17) 11/06/18 15:04 Creatinine 0.65 mg/dL (0.52-1.04) 11/06/18 15:04 Est GFR (CKD-EPI)AfAm >90 (>60 ml/min/1.73 sqM) 11/06/18 15:04 Est GFR (CKD-EPI)NonAf 85 (>60 ml/min/1.73 sqM) 11/06/18 15:04 Glucose 135 mg/dL (74-99) H 11/06/18 15:04 Calcium 9.9 mg/dL (8.4-10.2) 11/06/18 15:04 Magnesium 1.7 mg/dL (1.6-2.3) 11/06/18 15:04 Total Bilirubin 0.8 mg/dL (0.2-1.3) 11/06/18 15:04 AST 27 U/L (14-36) 11/06/18 15:04 ALT 34 U/L (9-52) 11/06/18 15:04 Alkaline Phosphatase 53 U/L (38-126) 11/06/18 15:04 Total Creatine Kinase 69 U/L (30-135) 11/06/18 15:04 CK-MB (CK-2) 2.0 ng/mL (0.0-2.4) 11/06/18 15:04 CK-MB (CK-2) Rel Index 2.9 11/06/18 15:04 Troponin I 0.079 ng/mL (0.000-0.034) H* 11/06/18 15:04 Total Protein 7.0 g/dL (6.3-8.2) 11/06/18 15:04 Albumin 4.2 g/dL (3.5-5.0) 11/06/18 15:04 Thrombosis Risk Factor Assmnt - DVT/VTE Prophylaxis DVT/VTE Prophylaxis: Pharmacologic Prophylaxis ordered - Choose All That Apply Each Risk Factor Represents 3 Points: Age 75 years or older Thrombosis Risk Factor Assessment Total Risk Factor Score: 3 Thrombosis Risk Factor Assessment Level: Moderate Risk Assessment and Plan Plan: 1. New onset atrial fibrillation with rapid ventricular rate, no previous history, this is her first episode patient is currently heparinized,, IV Cardizem was started from emergency room, recent history of junctional rhythm, for which her Cardizem and metoprolol has been discontinued prior to admission. Consult were made with Dr. valentin cardiology, thyroid function test will be obtained, troponin is expected to be mildly elevated secondary to recent cardiac intervention, continue to monitor, O2 when necessary for supplementation 2. CAD with recent cardiac stent placed on the RCA, mild disease in the LAD, continue aspirin 81 mg Plavix 75 mg long-term anticoagulation needs to be decided by cardiology for atrial fibrillation, chads 2 Vasc score of 5 3. Recent history of junctional bradycardia, resolved, however in view off tachybradycardia syndrome, patient might need a pacemaker, patient will be started restarted back on her metoprolol, cardiology is following closely 4. Recent AV fistula formation at the femoral area right groin from cardiac catheter procedure, Dr. Irene will be in consult for evaluation 4. Diabetes mellitus type 2 on metformin 850 mg twice a day 5. Hypertensive cardiovascular disease losartan 150 mg daily 6. Pulmonary hypertension, patient would be studied with her sleep study as an outpatient with Dr. Crabtree, recommendations are in place 7. Mitral regurgitation, moderate to severe, recent cardiac catheter study shows she has 2+ mitral regurgitation, no plans for any surgical intervention at this time, cardiology is closely following 6. Status post bariatric sleeve surgery, electrolytes and chemistries are closely followed, no ongoing GI losses at this time 7. Hyperlipidemia on Lipitor 80 daily 8. GERD on maintenance PPI 9. Moderate persistent asthma, on Nebulized Pulmicort albuterol, and Singulair 10. Dysthymia on Zoloft 50 mg daily, no change
[2018-11-06] MEDS: metFORMIN 850 MG TAB PO SCH (21:40)
[2018-11-06] MEDS: METOPROLOL TARTRATE 25 MG TAB PO SCH (21:40)
[2018-11-06 22:11] LABS: Troponin I 0.078 ng/mL (0.000-0.034)
[2018-11-07] MEDS: PANTOPRAZOLE 40 MG TABLET PO SCH (06:08)
[2018-11-07 06:48] LABS: Mean Platelet Volume 7.2; Platelet Count 143 k/uL (150-450)
[2018-11-07 07:10] LABS: Magnesium 1.7 mg/dL (1.6-2.3); Potassium 4.7 mmol/L (3.5-5.1)
[2018-11-07] MEDS: metFORMIN 850 MG TAB PO SCH ×2 (08:51→20:12)
[2018-11-07] MEDS: METOPROLOL TARTRATE 25 MG TAB PO SCH ×2 (08:51→20:12)
[2018-11-07] MEDS: SERTRALINE 50 MG TAB PO SCH (08:51)
[2018-11-07] MEDS: ATORVASTATIN 80 MG TAB PO SCH (08:52)
[2018-11-07] MEDS: ASPIRIN 81 MG PO SCH (08:52)
[2018-11-07] MEDS: CLOPIDOGREL 75 MG TAB PO SCH (08:52)
[2018-11-07] MEDS ORDERED: ASPIRIN 325 MG TAB PO SCH (09:00)
[2018-11-07] MEDS ORDERED: LOSARTAN 50 MG TAB PO SCH (09:00)
[2018-11-07] MEDS ORDERED: NON-FORMULARY DRUG (Olmesartan 20 MG) PO SCH (09:00)
[2018-11-07] MEDS: HYDROCHLOROTHIAZIDE 25 MG TAB PO SCH (10:46)
[2018-11-07] MEDS: hydrALAZINE HCL 25 MG TAB PO SCH ×2 (10:46→20:11)
--- NOTE | 2018-11-07 13:29 | PN ---
PROGRESS NOTE Mrs. Castro is a 78-year-old female who has a history of coronary artery disease. She underwent stenting of the right coronary artery recently. At that time she had junctional rhythm. She came in with atrial fibrillation but has converted back to sinus mechanism. She is feeling well today. Her breathing is stable. She denies any dizziness or palpitations. She denies any nausea. She continues to be on aspirin once a day, Plavix 75 mg daily, Lipitor 80 mg daily, losartan 100 mg daily, metoprolol tartrate 25 mg twice a day. PHYSICAL EXAMINATION: Blood pressure running in the 160s to 170s with a heart rate in the 50s. LUNGS: Clear. HEART: Regular rate, rhythm. S1, S2. No S3 with systolic murmur. No diastolic murmur. No rub. ABDOMEN: Soft, nontender. Right groin with a bruit noted. LAB DATA: BUN and creatinine of 13 and 0.75. IMPRESSION: 1. Paroxysmal atrial fibrillation with possible sick sinus syndrome. 2. Status post stenting of the right coronary artery. 3. AV fistula post cardiac catheterization. 4. Hypertension. 5. Cardiomyopathy. 6. Hyperlipidemia. RECOMMENDATIONS: I will add hydralazine to her regimen. I will stop the IV heparin and add Xarelto 15 mg daily. Will follow her rhythm and her blood pressure. The patient may require permanent pacemaker implantation. We will observe her in the next 24 hours. In regard to the AV fistula, patient has been evaluated by Dr. Irene, and further recommendations will be made regarding the need to undergo intervention. MMODL / IJN: [id number] /
--- NOTE | 2018-11-07 13:37 | P.PN ---
Subjective Progress Note Date: 11/07/18 This is a pleasant 78-year-old lady known to my practice. She has underlying history of CAD, mild persistent asthma, mitral regurgitation and tricuspid regurgitation, pulmonary hypertension, who was recently studied for her shortness of breath, required a cardiac catheter showing 95% stenosis of the RCA , requiring that the patient's intervention on the proximal and mid segments performed by Dr. Moss on 11/03/2018. She also had a small AV fistula on the femoral area requiring consultation to Dr. Irene this November 11, 2018. She was seen by myself for hospital follow-up today, and with routine examination, she has tachycardia and irregular heart rate on physical examination, EKG showed atrial fibrillation, with RVR heart rate 148 2/111, This is new onset atrial fibrillation, patient has been having mild shortness of breath and tremors, and lightheadedness, as well as palpitations. During her last cardiac catheterization, she was also noted to have junctional bradycardia, with a temporary pacemaker placed hence her metoprolol was discontinued. She was discharged to home after her cardiac catheter in stable condition. There is no signs of pseudoaneurysm on her right groin, no significant bleeding on the right groin area where percutaneous intervention access was made, how ever in view off the junctional bradycardia recently and A. fib with RVR, requiring anticoagulation, along with her AV fistula in the right femoral area, with discussed this with Dr. Davenport from the cardiology office who recommended the patient be admitted emergency room we have attempted to get Dr. Breen or Dr. Moss, Dr. Irene however they're not available for phone consultation at that time. We've notified the ER physician as well as the patient was transported via private car by her daughter. Patient denies any current chest pain, she has some lightheadedness, and some tremors. No melena and hematochezia 11/07: Case discussed with both Dr. Moss and Dr. Irene with plan to start patient on Xarelto, discontinue heparin drip. Patient will follow-up with Dr. Irene is scheduled next Friday in the office regarding the fistula. Patient may require pacemaker placement and will be monitored over the next 24 hours. Patient denies any true chest pain but complains of an aching-type feeling in her chest. She has been afebrile, heart rate running in the 50s, pulse ox 94% on room air, blood pressure 164/83. nursing center tutor is a sinus rhythm. Electrolytes within normal limits. Triglycerides 116, cholesterol 142 , LDL 75, HDL 44. Review Of Systems: Constitutional: No fever, no chills, no night sweats. No weight change. No weakness, fatigue or lethargy. No daytime sleepiness. EENT: No headache. No blurred vision or double vision, no loss of vision. No loss of Hearing, no ringing in the ears, no dizziness. No nasal drainage or congestion. No epistaxis. No sore throat. Lungs: No shortness of breath, cough, no sputum production. No wheezing. Cardiovascular: Reports chest pain, no lower extremity edema. No palpitations. No paroxysmal nocturnal dyspnea. No orthopnea. No lightheadedness or dizziness. No syncopal episodes. Abdominal: No abdominal pain. No nausea, vomiting. No diarrhea. No constipation. No bloody or tarry stools.. No loss of appetite. Genitourinary: No dysuria, increased frequency, urgency. No urinary retention. Musculoskeletal: No myalgias. No muscle weakness, no gait dysfunction, no frequent falls. No back pain. No neck pain. Integumentary: No wounds, no lesions. No rash or pruritus. No unusual bruising. No change in hair or nails. Neurologic: No aphasia. No facial droop. No change in mentation. No head injury. No headache. No paralysis. No paresthesia. Psychiatric: No depression. No anxiety. No mood swings. Endocrine: No abnormal blood sugars. No weight change. No excessive sweating or thirst. No cold intolerance. No weight change. Objective - Vital Signs Vital signs: Vital Signs Temp 98.5 F 11/07/18 08:00 Pulse 53 L 11/07/18 08:00 Resp 16 11/07/18 08:00 BP 164/83 11/07/18 08:00 Pulse Ox 93 L 11/07/18 08:00 Intake & Output 11/06/18 11/07/18 11/07/18 18:59 06:59 18:59 Intake Total 1272.920 Balance 1272.920 Weight 84.368 kg 84.1 kg Intake: IV 220 normal saline 220 Intake, IV Titration 152.920 Amount Diltiazem 125 mg In 29.833 Sodium Chloride 0.9% 100 ml @ 5 MG/HR 5 mls/hr IV .Q24H [facility] Rx#:[id number] Heparin Sod,Pork in 0.45% 123.087 NaCl 25,000 unit In 0.45 % NaCl 1 250ml.bag @ 11. 84 UNITS/KG/HR 9.98 mls/ hr IV .Q24H [facility] Rx#: [id number] Oral 900 Other: Voiding Method Toilet # Voids 3 - Exam General appearance: average body habitus, cooperative, no acute distress, patient resting in bed - EENT Eyes: anicteric sclerae, EOMI, PERRLA, dentition normal, normal appearance ENT: hearing grossly normal, NA/AT, normal oropharynx - Neck Neck: normal ROM Thyroid: bilateral: normal size, negative: enlarged, firm - Respiratory Respiratory: bilateral: CTA, negative: diminished, dullness, rales - Cardiovascular Rhythm: Regular, cardiac/vascular sonographer is a sinus rhythm Heart sounds: normal: S1, S2 Abnormal Heart Sounds: systolic murmur, no diastolic murmur, no rub, no S3 Gallop, no S4 Gallop, no click, no other - Integumentary Integumentary: decreased turgor, normal - Neurologic Neurologic: CNII-XII intact, focal deficits (none) - Musculoskeletal Musculoskeletal: gait normal, generalized weakness, strength equal bilaterally - Psychiatric Psychiatric: A&O x's 3, appropriate affect, intact judgment & insight - Labs CBC & Chem 7: 11/07/18 06:03 11/07/18 06:03 Labs: Abnormal Lab Results - Last 24 Hours (Table) 11/06/18 11/06/18 11/06/18 Range/Units 15:04 15:04 15:04 WBC 11.8 H (3.8-10.6) k/uL Plt Count (150-450) k/uL Neutrophils # 8.5 H (1.3-7.7) k/uL APTT (22.0-30.0) sec Glucose 135 H (74-99) mg/dL POC Glucose (mg/dL) (75-99) mg/dL Troponin I 0.079 H* (0.000-0.034) ng/mL 11/06/18 11/06/18 11/06/18 Range/Units 15:04 17:46 21:10 WBC (3.8-10.6) k/uL Plt Count (150-450) k/uL Neutrophils # (1.3-7.7) k/uL APTT 21.1 L 51.6 H (22.0-30.0) sec Glucose (74-99) mg/dL POC Glucose (mg/dL) 121 H (75-99) mg/dL Troponin I (0.000-0.034) ng/mL 11/06/18 11/07/18 11/07/18 Range/Units 21:10 02:49 06:03 WBC (3.8-10.6) k/uL Plt Count 143 L (150-450) k/uL Neutrophils # (1.3-7.7) k/uL APTT 49.6 H (22.0-30.0) sec Glucose (74-99) mg/dL POC Glucose (mg/dL) (75-99) mg/dL Troponin I 0.078 H* (0.000-0.034) ng/mL Assessment and Plan Plan: 1. New onset atrial fibrillation with rapid ventricular rate, converted to sinus rhythm. Cardiology consult appreciated. Cardizem drip and heparin drip discontinued. Continue Lopressor 25 mg twice daily, Xarelto 50 mg at supper. 2. CAD with recent cardiac stent placed on the RCA, mild disease in the LAD, continue aspirin 81 mg Plavix 75 mg, atorvastatin 80 mg daily. 3. Recent history of junctional bradycardia, resolved, however in view off tachybradycardia syndrome, patient might need a pacemaker, patient will be started restarted back on her metoprolol, cardiology is following closely 4. Recent AV fistula formation at the femoral area right groin from cardiac catheter procedure, Dr. Irene consult appreciated. Patient will follow-up in the office on November 11. 4. Diabetes mellitus type 2 on metformin 850 mg twice a day 5. Hypertensive cardiovascular disease losartan 100 mg daily, hydrochlorothiazide 25 mg daily, hydralazine 25 mg twice daily 6. Pulmonary hypertension, patient would be studied with her sleep study as an outpatient with Dr. Crabtree, recommendations are in place 7. Mitral regurgitation, moderate to severe, recent cardiac catheter study shows she has 2+ mitral regurgitation, no plans for any surgical intervention at this time, cardiology is closely following 6. Status post bariatric sleeve surgery, electrolytes and chemistries are closely followed, no ongoing GI losses at this time 7. Hyperlipidemia on Lipitor 80 daily 8. GERD on maintenance PPI 9. Moderate persistent asthma, on Nebulized Pulmicort albuterol, and Singulair 10. Dysthymia on Zoloft 50 mg daily, no change Discharge plan: Return home in the next 24-48 hours Impression and plan of care have been directed as dictated by the signing physician. Angie Castellon nurse practitioner acting as scribe for signing physician.
--- NOTE | 2018-11-07 15:35 | CONS ---
CONSULTATION This is a 78-year-old female. She had a heart catheterization and coronary artery stent placement. The patient had a right and left heart catheterization last week. After that completion, study showed patient has a fistula between the femoral vein and femoral artery. The patient also has a history of atrial fibrillation, on anticoagulation. On examination, neck is supple. Chest is clear. Abdomen is soft. Patient has a bruit in the right groin. No evidence of congestive heart failure. Patient has been anticoagulated. I will follow in the next week or Friday in my office. We will arrange for further intervention. MMODL / IJN: [id number] /
[2018-11-07 16:32] LABS: HCT 39.5 % (34.0-46.0); HGB 12.6 gm/dL (11.4-16.0); MCH 29.7 pg (25.0-35.0); MCV 92.9 fL (80.0-100.0); Mean Platelet Volume 7.5; Platelet Count 161 k/uL (150-450); RBC 4.26 m/uL (3.80-5.40); RDW 15.2 % (11.5-15.5); WBC 10.7 k/uL (3.8-10.6)
[2018-11-07 16:41] LABS: Glucose,Whole Blood 163 mg/dL (75-99)
[2018-11-07] MEDS ORDERED: RIVAROXABAN 15 MG TAB PO SCH (17:30)
[2018-11-07 20:57] LABS: Glucose,Whole Blood 104 mg/dL (75-99)
[2018-11-08] MEDS: PANTOPRAZOLE 40 MG TABLET PO SCH (06:26)
[2018-11-08 06:28] LABS: Glucose,Whole Blood 86 mg/dL (75-99)
[2018-11-08 06:51] LABS: Mean Platelet Volume 7.5; Platelet Count 145 k/uL (150-450)
[2018-11-08 07:08] LABS: Calcium 8.9 mg/dL (8.4-10.2); Potassium 3.8 mmol/L (3.5-5.1)
[2018-11-08] MEDS ORDERED: ALPRAZolam 0.25 MG TAB PO PRN ×2 (08:27→11:10)
[2018-11-08] MEDS: HYDROCHLOROTHIAZIDE 25 MG TAB PO SCH (08:28)
[2018-11-08] MEDS: ATORVASTATIN 80 MG TAB PO SCH (08:28)
[2018-11-08] MEDS: SERTRALINE 50 MG TAB PO SCH (08:28)
[2018-11-08] MEDS: metFORMIN 850 MG TAB PO SCH ×2 (08:28→20:09)
[2018-11-08] MEDS: METOPROLOL TARTRATE 25 MG TAB PO SCH ×2 (08:28→20:09)
[2018-11-08] MEDS: hydrALAZINE HCL 25 MG TAB PO SCH ×3 (08:28→22:54)
[2018-11-08] MEDS: ASPIRIN 81 MG PO SCH (08:29)
[2018-11-08] MEDS: LOSARTAN 50 MG TAB PO SCH (08:29)
[2018-11-08] MEDS: CLOPIDOGREL 75 MG TAB PO SCH (08:29)
--- NOTE | 2018-11-08 12:46 | P.DS ---
Providers Date of admission: 11/06/18 14:35 Expected date of discharge: 11/08/18 Attending physician: Gerri Joyce Consults: 11/06/18 14:35 Consult Physician Urgent Consulting Provider: Gustavo Moss Consult Reason/Comments: afib Do you want consulting provider notified?: Yes 11/06/18 14:41 Consult Physician Urgent Consulting Provider: Julio César Irene Consult Reason/Comments: known Do you want consulting provider notified?: Yes Primary care physician: Gerri Joyce Hospital Course: This is a pleasant 78-year-old lady known to my practice. She has underlying history of CAD, mild persistent asthma, mitral regurgitation and tricuspid regurgitation, pulmonary hypertension, who was recently studied for her shortness of breath, required a cardiac catheter showing 95% stenosis of the RCA , requiring that the patient's intervention on the proximal and mid segments performed by Dr. Moss on 11/03/2018. She also had a small AV fistula on the femoral area requiring consultation to Dr. Irene this November 11, 2018. She was seen by myself for hospital follow-up today, and with routine examination, she has tachycardia and irregular heart rate on physical examination, EKG showed atrial fibrillation, with RVR heart rate 148 2/111, This is new onset atrial fibrillation, patient has been having mild shortness of breath and tremors, and lightheadedness, as well as palpitations. During her last cardiac catheterization, she was also noted to have junctional bradycardia, with a temporary pacemaker placed hence her metoprolol was discontinued. She was discharged to home after her cardiac catheter in stable condition. There is no signs of pseudoaneurysm on her right groin, no significant bleeding on the right groin area where percutaneous intervention access was made, how ever in view off the junctional bradycardia recently and A. fib with RVR, requiring anticoagulation, along with her AV fistula in the right femoral area, with discussed this with Dr. Davenport from the cardiology office who recommended the patient be admitted emergency room we have attempted to get Dr. Breen or Dr. Moss, Dr. Irene however they're not available for phone consultation at that time. We've notified the ER physician as well as the patient was transported via private car by her daughter. Patient denies any current chest pain, she has some lightheadedness, and some tremors. No melena and hematochezia 11/07: Case discussed with both Dr. Moss and Dr. Irene with plan to start patient on Xarelto, discontinue heparin drip. Patient will follow-up with Dr. Irene is scheduled next Friday in the office regarding the fistula. Patient may require pacemaker placement and will be monitored over the next 24 hours. Patient denies any true chest pain but complains of an aching-type feeling in her chest. She has been afebrile, heart rate running in the 50s, pulse ox 94% on room air, blood pressure 164/83. threat monitoring analyst is a sinus rhythm. Electrolytes within normal limits. Triglycerides 116, cholesterol 142 , LDL 75, HDL 44. 11/08: Patient complains of heartburn and also had a slight bloody nose last evening. She denies any weakness, chest pain, shortness of breath. She has been afebrile, heart rate running in the 50s, blood pressure 171/77, pulse ox 97 % on room air. Repeat lab work shows a sodium 141, potassium 3.8, chloride 108 , CO2 26, creatinine 0.74. Blood sugars running between 86 and 163. Medications have been reviewed with Dr. Moss and patient cleared by cardiology for discharge home. Patient will be discharged home today in stable condition. Discharge diagnoses: 1. New onset atrial fibrillation with rapid ventricular rate, paroxysmal atrial fibrillation, converted to sinus rhythm. 2. CAD with recent cardiac stent placed on the RCA, mild disease in the LAD 3. Recent history of junctional bradycardia, resolved 4. Recent AV fistula formation at the femoral area right groin from cardiac catheter procedure, Dr. Irene consult appreciated. Patient will follow-up in the office on November 11. 4. Diabetes mellitus type 2 5. Hypertensive cardiovascular disease 6. Pulmonary hypertension, patient would be studied with her sleep study as an outpatient with Dr. Crabtree 7. Mitral regurgitation, moderate to severe, recent cardiac catheter study shows she has 2+ mitral regurgitation, no plans for any surgical intervention at this time 6. Status post bariatric sleeve surgery 7. Hyperlipidemia 8. GERD 9. Moderate persistent asthma 10. Dysthymia Discharge plan: Return home Impression and plan of care have been directed as dictated by the signing physician. Angie Castellon nurse practitioner acting as scribe for signing physician. Patient Condition at Discharge: Good Plan - Discharge Summary Discharge Rx Participant: Yes New Discharge Prescriptions: New Metoprolol Tartrate [Lopressor] 12.5 mg PO BID #60 tab Rivaroxaban [Xarelto] 15 mg PO W/SUPPER #30 tab hydrALAZINE HCL [Apresoline] 25 mg PO BID #60 tab Continue Albuterol Nebulized [Ventolin Nebulized] 2.5 mg INHALATION RT-QID PRN PRN Reason: Shortness Of Breath Sertraline [Zoloft] 50 mg PO DAILY Fluticasone/Salmeterol [Advair 250-50 Diskus] 1 puff INHALATION RT-BID Omeprazole [PriLOSEC] 20 mg PO [facility] Multivitamins, Thera [Multivitamin (formulary)] 1 tab PO DAILY Cyanocobalamin [Vitamin B-12] 500 mcg PO DAILY Montelukast Sodium [Singulair] 10 mg PO HS Calcium Citrate 250 mg PO BID metFORMIN HCL [Glucophage] 850 mg PO BID Ferrous Sulfate [Feosol] 325 mg PO DAILY Aspirin EC [Ecotrin Low Dose] 81 mg PO DAILY [place]-3 Fatty Acids/Fish Oil [Fish Oil 1,000 mg Softgel] 1 cap PO DAILY Atorvastatin [Lipitor] 80 mg PO DAILY #90 tab Clopidogrel [Plavix] 75 mg PO DAILY #90 tab Nitroglycerin Sl Tabs [Nitrostat] 0.4 mg SUBLINGUAL Q5M PRN #25 tab PRN Reason: Chest Pain Olmesartan [Benicar] 40 mg PO DAILY #90 tab Hydrochlorothiazide 25 mg PO DAILY #30 tablet Changed ALPRAZolam [Xanax] 0.25 mg PO DAILY #0 Discontinued amLODIPine [Norvasc] 5 mg PO BID #180 tab Discharge Medication List Albuterol Nebulized [Ventolin Nebulized] 2.5 mg INHALATION RT-QID PRN 08/17/14 [ History] Fluticasone/Salmeterol [Advair 250-50 Diskus] 1 puff INHALATION RT-BID 08/17/14 [History] Omeprazole [PriLOSEC] 20 mg PO AC-[facility] 08/17/14 [History] Sertraline [Zoloft] 50 mg PO DAILY 08/17/14 [History] Calcium Citrate 250 mg PO BID 03/21/18 [History] Cyanocobalamin [Vitamin B-12] 500 mcg PO DAILY 03/21/18 [History] Montelukast Sodium [Singulair] 10 mg PO HS 03/21/18 [History] Multivitamins, Thera [Multivitamin (formulary)] 1 tab PO DAILY 03/21/18 [History ] Ferrous Sulfate [Feosol] 325 mg PO DAILY 08/05/18 [History] metFORMIN HCL [Glucophage] 850 mg PO BID 08/05/18 [History] Aspirin EC [Ecotrin Low Dose] 81 mg PO DAILY 10/30/18 [History] [place]-3 Fatty Acids/Fish Oil [Fish Oil 1,000 mg Softgel] 1 cap PO DAILY [History] Atorvastatin [Lipitor] 80 mg PO DAILY #90 tab 11/04/18 [Rx] Clopidogrel [Plavix] 75 mg PO DAILY #90 tab 11/04/18 [Rx] Hydrochlorothiazide 25 mg PO DAILY #30 tablet 11/04/18 [Rx] Nitroglycerin Sl Tabs [Nitrostat] 0.4 mg SUBLINGUAL Q5M PRN #25 tab 11/04/18 [Rx ] Olmesartan [Benicar] 40 mg PO DAILY #90 tab 11/04/18 [Rx] ALPRAZolam [Xanax] 0.25 mg PO DAILY #0 11/08/18 [Rx] Metoprolol Tartrate [Lopressor] 12.5 mg PO BID #60 tab 11/08/18 [Rx] Rivaroxaban [Xarelto] 15 mg PO W/SUPPER #30 tab 11/08/18 [Rx] hydrALAZINE HCL [Apresoline] 25 mg PO BID #60 tab 11/08/18 [Rx] Follow up Appointment(s)/Referral(s): Gerri Joyce MD [Primary Care Provider] - 1 Week Glenna Breen MD [STAFF PHYSICIAN] - 1 Week Julio César Irene MD [STAFF PHYSICIAN] - 11/11/18 (as scheduled) Activity/Diet/Wound Care/Special Instructions: Take additional 12.5mg of metoprolol if heart rate is greater than 100. Discharge Disposition: HOME WITH HOME HEALTH SERVICES
--- NOTE | 2018-11-08 15:30 | PN ---
PROGRESS NOTE Ms. Castro is a 78-year-old female who was underwent stenting of the right coronary artery recently who presented with atrial fibrillation, converted back to sinus mechanism. She is feeling well today. She had episode of bradycardia but no chest pain. Her breathing has been stable. No dizziness. No palpitation. She denies any nausea. She continues to be on aspirin 81 mg daily, Lipitor 80 mg daily, Plavix 75 mg daily, Apresoline 25 mg twice a day, hydrochlorothiazide 25 mg mg daily, losartan 100 mg daily, metformin 850 mg twice a day, metoprolol 25 mg twice a day, and Xarelto 15 mg daily. PHYSICAL EXAMINATION: Blood pressure 160/70 with a heart rate in the 50s. LUNGS: Clear. HEART: Regular rate and rhythm S1, S2. No S3 with systolic murmur. No diastolic murmur. No rub. ABDOMEN: Soft and nontender. EXTREMITIES: No edema. IMPRESSION: 1. Paroxysmal atrial fibrillation with possible sick sinus syndrome with prior episode of bradycardia and junctional rhythm. 2. Recent stenting of the RCA. 3. Hypertension. 4. Hyperlipidemia. 5. Diabetes mellitus. RECOMMENDATIONS: I will continue present therapy. We will increase her level of activity. If she remains stable, she may be able to be discharged home and follow up with Dr. Breen early this week to proceed with further evaluation to see if a permanent pacemaker implantation will be needed. MMODL / JEFFERYN: [id number] /
[2018-11-09 06:35] LABS: Mean Platelet Volume 7.4; Platelet Count 166 k/uL (150-450)
[2018-11-09] MEDS: PANTOPRAZOLE 40 MG TABLET PO SCH (06:41)
[2018-11-09 06:55] LABS: Anion Gap 9 mmol/L; Blood Urea Nitrogen 14 mg/dL (7-17); Calcium 9.2 mg/dL (8.4-10.2); Carbon Dioxide 30 mmol/L (22-30); Chloride 102 mmol/L (98-107); Glucose 97 mg/dL (74-99); Potassium 5.1 mmol/L (3.5-5.1); Sodium 141 mmol/L (137-145)
[2018-11-09 07:45] VITALS: RESP 16
[2018-11-09] MEDS: CLOPIDOGREL 75 MG TAB PO SCH (08:15)
[2018-11-09] MEDS: HYDROCHLOROTHIAZIDE 25 MG TAB PO SCH (08:15)
[2018-11-09] MEDS: ATORVASTATIN 80 MG TAB PO SCH (08:15)
[2018-11-09] MEDS: SERTRALINE 50 MG TAB PO SCH (08:15)
[2018-11-09] MEDS: hydrALAZINE HCL 25 MG TAB PO SCH (08:15)
[2018-11-09] MEDS: metFORMIN 850 MG TAB PO SCH (08:15)
[2018-11-09] MEDS: ASPIRIN 81 MG PO SCH (08:15)
[2018-11-09] MEDS: LOSARTAN 50 MG TAB PO SCH (08:15)
[2018-11-09] MEDS: METOPROLOL TARTRATE 25 MG TAB PO SCH (08:15)
--- NOTE | 2018-11-09 08:23 | P.PN ---
Subjective Progress Note Date: 11/08/18 This is a pleasant 78-year-old lady known to my practice. She has underlying history of CAD, mild persistent asthma, mitral regurgitation and tricuspid regurgitation, pulmonary hypertension, who was recently studied for her shortness of breath, required a cardiac catheter showing 95% stenosis of the RCA , requiring that the patient's intervention on the proximal and mid segments performed by Dr. Moss on 11/03/2018. She also had a small AV fistula on the femoral area requiring consultation to Dr. Irene this November 11, 2018. She was seen by myself for hospital follow-up today, and with routine examination, she has tachycardia and irregular heart rate on physical examination, EKG showed atrial fibrillation, with RVR heart rate 148 2/111, This is new onset atrial fibrillation, patient has been having mild shortness of breath and tremors, and lightheadedness, as well as palpitations. During her last cardiac catheterization, she was also noted to have junctional bradycardia, with a temporary pacemaker placed hence her metoprolol was discontinued. She was discharged to home after her cardiac catheter in stable condition. There is no signs of pseudoaneurysm on her right groin, no significant bleeding on the right groin area where percutaneous intervention access was made, how ever in view off the junctional bradycardia recently and A. fib with RVR, requiring anticoagulation, along with her AV fistula in the right femoral area, with discussed this with Dr. Davenport from the cardiology office who recommended the patient be admitted emergency room we have attempted to get Dr. Breen or Dr. Moss, Dr. Irene however they're not available for phone consultation at that time. We've notified the ER physician as well as the patient was transported via private car by her daughter. Patient denies any current chest pain, she has some lightheadedness, and some tremors. No melena and hematochezia 11/07: Case discussed with both Dr. Moss and Dr. Irene with plan to start patient on Xarelto, discontinue heparin drip. Patient will follow-up with Dr. Irene is scheduled next Friday in the office regarding the fistula. Patient may require pacemaker placement and will be monitored over the next 24 hours. Patient denies any true chest pain but complains of an aching-type feeling in her chest. She has been afebrile, heart rate running in the 50s, pulse ox 94% on room air, blood pressure 164/83. electronic device monitor is a sinus rhythm. Electrolytes within normal limits. Triglycerides 116, cholesterol 142 , LDL 75, HDL 44. 11/08: Patient complains of heartburn and also had a slight bloody nose last evening. She denies any weakness, chest pain, shortness of breath. She has been afebrile, heart rate running in the 50s, blood pressure 171/77, pulse ox 97 % on room air. Repeat lab work shows a sodium 141, potassium 3.8, chloride 108 , CO2 26, creatinine 0.74. Blood sugars running between 86 and 163. Medications have been reviewed with Dr. Moss and patient cleared by cardiology for discharge home. Patient will be discharged home today in stable condition. Patient was prepared for discharge home but subsequently developed multiple episodes of hemoptysis. Xarelto was discontinued and discharge was held for today Review Of Systems: Constitutional: No fever, no chills, no night sweats. No weight change. No weakness, fatigue or lethargy. No daytime sleepiness. EENT: No headache. No blurred vision or double vision, no loss of vision. No loss of Hearing, no ringing in the ears, no dizziness. No nasal drainage or congestion. No epistaxis. No sore throat. Lungs: No shortness of breath, cough, no sputum production. No wheezing. Reports hemoptysis Cardiovascular: Reports chest pain, no lower extremity edema. No palpitations. No paroxysmal nocturnal dyspnea. No orthopnea. No lightheadedness or dizziness. No syncopal episodes. Abdominal: No abdominal pain. No nausea, vomiting. No diarrhea. No constipation. No bloody or tarry stools.. No loss of appetite. Genitourinary: No dysuria, increased frequency, urgency. No urinary retention. Musculoskeletal: No myalgias. No muscle weakness, no gait dysfunction, no frequent falls. No back pain. No neck pain. Integumentary: No wounds, no lesions. No rash or pruritus. No unusual bruising. No change in hair or nails. Neurologic: No aphasia. No facial droop. No change in mentation. No head injury. No headache. No paralysis. No paresthesia. Psychiatric: No depression. No anxiety. No mood swings. Endocrine: No abnormal blood sugars. No weight change. No excessive sweating or thirst. No cold intolerance. No weight change. Objective - Vital Signs Vital signs: Vital Signs Temp 98.0 F 11/09/18 07:40 Pulse 56 L 11/09/18 07:40 Resp 16 11/09/18 07:40 BP 201/69 11/09/18 07:40 Pulse Ox 96 11/09/18 07:40 Intake & Output 11/08/18 11/09/18 11/09/18 18:59 06:59 18:59 Intake Total 720 240 Balance 720 240 Weight 82.7 kg Intake: Oral 720 240 Other: Voiding Method Toilet # Voids 2 1 - Exam General appearance: average body habitus, cooperative, no acute distress, patient resting in bed - EENT Eyes: anicteric sclerae, EOMI, PERRLA, dentition normal, normal appearance ENT: hearing grossly normal, NA/AT, normal oropharynx - Neck Neck: normal ROM Thyroid: bilateral: normal size, negative: enlarged, firm - Respiratory Respiratory: bilateral: CTA, negative: diminished, dullness, rales - Cardiovascular Rhythm: Regular, school lunch monitor is a sinus rhythm Heart sounds: normal: S1, S2 Abnormal Heart Sounds: systolic murmur, no diastolic murmur, no rub, no S3 Gallop, no S4 Gallop, no click, no other - Integumentary Integumentary: decreased turgor, normal - Neurologic Neurologic: CNII-XII intact, focal deficits (none) - Musculoskeletal Musculoskeletal: gait normal, generalized weakness, strength equal bilaterally - Psychiatric Psychiatric: A&O x's 3, appropriate affect, intact judgment & insight - Labs CBC & Chem 7: 11/09/18 05:38 11/09/18 05:38 Assessment and Plan Plan: 1. New onset atrial fibrillation with rapid ventricular rate, converted to sinus rhythm. Cardiology consult appreciated. Cardizem drip and heparin drip discontinued. Continue Lopressor 25 mg twice daily, Xarelto held. 2. CAD with recent cardiac stent placed on the RCA, mild disease in the LAD, continue aspirin 81 mg Plavix 75 mg, atorvastatin 80 mg daily. 3. Recent history of junctional bradycardia, resolved, however in view off tachybradycardia syndrome, patient might need a pacemaker, patient will be started restarted back on her metoprolol, cardiology is following closely 4. Recent AV fistula formation at the femoral area right groin from cardiac catheter procedure, Dr. Irene consult appreciated. Patient will follow-up in the office on November 11. 4. Diabetes mellitus type 2 on metformin 850 mg twice a day 5. Hypertensive cardiovascular disease losartan 100 mg daily, hydrochlorothiazide 25 mg daily, hydralazine 25 mg twice daily 6. Pulmonary hypertension, patient would be studied with her sleep study as an outpatient with Dr. Crabtree, recommendations are in place 7. Mitral regurgitation, moderate to severe, recent cardiac catheter study shows she has 2+ mitral regurgitation, no plans for any surgical intervention at this time, cardiology is closely following 6. Status post bariatric sleeve surgery, electrolytes and chemistries are closely followed, no ongoing GI losses at this time 7. Hyperlipidemia on Lipitor 80 daily 8. GERD on maintenance PPI 9. Moderate persistent asthma, on Nebulized Pulmicort albuterol, and Singulair 10. Dysthymia on Zoloft 50 mg daily, no change 11. Hemoptysis. Xarelto held. Discharge plan: Return home in the next 24-48 hours Impression and plan of care have been directed as dictated by the signing physician. Angie Castellon nurse practitioner acting as scribe for signing physician.
[2018-11-09] MEDS ORDERED: ALPRAZolam 0.25 MG TAB PO SCH (09:00)
--- NOTE | 2018-11-09 10:01 | PN ---
PROGRESS NOTE Mrs. Castro is a 78-year-old female with known history of coronary artery disease, status post recent stenting of the right coronary artery, who presented with atrial fibrillation, rapid ventricular response, converted back to sinus mechanism. She continued be in sinus bradycardia but no significant pauses. She had epistaxis yesterday that resolved. Her Xarelto was on hold. She denies any chest pain or palpitation. She denies any nausea. Her blood pressure has been elevated, but otherwise she has been ambulating without difficulty. She continues to be on aspirin once a day, Plavix 75 mg daily, hydralazine 25 mg 3 times a day, hydrochlorothiazide 25 mg daily, losartan 100 mg daily, metoprolol tartrate 25 mg twice a day, metformin 850 mg twice a day, and sertraline. PHYSICAL EXAMINATION: Blood pressure running in the 190s, earlier it was in the 140s. Heart rate in the 50s. HEAD: Normocephalic. EYES: Sclerae nonicteric. NECK: Good upstroke, no bruit, no jugular venous distention. LUNGS: Clear to auscultation. HEART: Regular rate and rhythm, S1, S2. No S3 with systolic murmur at the base. No diastolic murmur no rub. ABDOMEN: Soft nontender. EXTREMITIES: No edema. LAB DATA: Revealed BUN and creatinine 14 and 0.73, potassium 5.1. IMPRESSION: 1. Paroxysmal atrial fibrillation back in sinus mechanism. The patient most likely has sick sinus syndrome. 2. Status post stenting of the RCA. 3. Hypertension. 4. AV fistula in the right groin. 5. Hyperlipidemia. 6. Diabetes mellitus. 7. Epistaxis, resolved. RECOMMENDATION: I will increase the dose of hydralazine. Increase her activity. If she remains stable, she may be able to be discharged home today. She will follow up with Dr. Breen this coming Friday and depending on her status, she may require permanent pacemaker implantation at that time. In the meantime, will continue to hold the Xarelto pending her visit with Dr. Breen on Friday. MMODL / IJN: [id number] /
[2018-11-09 10:56] VITALS: BP 157/68; PULSE 53; TEMP 97.7
[2018-11-09] MEDS ORDERED: hydrALAZINE HCL 50 MG TAB PO SCH (16:00)
== END 2018-11-09 12:07 | disposition home or self-care (01) | DRG 309 ==
LOC: EC 14:24 → 3SCARD 14:35
PROVIDERS: ADMIT Family Medicine; ATTEND Family Medicine
DX: I48.0 Paroxysmal atrial fibrillation (principal); R04.2 Hemoptysis; I49.5 Sick sinus syndrome; I27.20 Pulmonary hypertension, unspecified; I42.9 Cardiomyopathy, unspecified; J44.9 Chronic obstructive pulmonary disease, unspecified; I08.1 Rheumatic disorders of both mitral and tricuspid valves; E11.9 Type 2 diabetes mellitus without complications; I11.9 Hypertensive heart disease without heart failure; E78.5 Hyperlipidemia, unspecified; F34.1 Dysthymic disorder; G47.30 Sleep apnea, unspecified; I25.10 Atherosclerotic heart disease of native coronary artery without angina pectoris; I25.2 Old myocardial infarction; J45.40 Moderate persistent asthma, uncomplicated; K21.9 Gastro-esophageal reflux disease without esophagitis; R04.0 Epistaxis; F32.9 Major depressive disorder, single episode, unspecified; F41.9 Anxiety disorder, unspecified; M19.90 Unspecified osteoarthritis, unspecified site; M54.31 Sciatica, right side; Z79.02 Long term (current) use of antithrombotics/antiplatelets; Z79.82 Long term (current) use of aspirin; Z79.84 Long term (current) use of oral hypoglycemic drugs; Z79.899 Other long term (current) drug therapy; Z98.84 Bariatric surgery status; Z95.5 Presence of coronary angioplasty implant and graft; Z90.710 Acquired absence of both cervix and uterus; Z87.891 Personal history of nicotine dependence; Z88.2 Allergy status to sulfonamides; Z88.8 Allergy status to other drugs, medicaments and biological substances; Z87.01 Personal history of pneumonia (recurrent); Z98.49 Cataract extraction status, unspecified eye; Z96.1 Presence of intraocular lens; Z90.49 Acquired absence of other specified parts of digestive tract; Z82.49 Family history of ischemic heart disease and other diseases of the circulatory system; Z82.61 Family history of arthritis
CPT/HCPCS: 71046; 80048; 80053; 80061; 82550; 82553; 83735; 84443; 84484; 85025; 85027; 85049; 85610; 85730; 93005; 96365; 96368; 96376; 99285

== ENCOUNTER 2018-11-19 10:33 | Observation (INO) | payer MEDICARE, OTHER ==
[2018-11-19] MEDS ORDERED: ASPIRIN 81 MG PO STA (10:52)
[2018-11-19 11:38] LABS: Basophils % (A) 0 %; Eosinophils # (A) 0.1 k/uL (0-0.7); Eosinophils % (A) 1 %; HCT 37.3 % (34.0-46.0); HGB 12.6 gm/dL (11.4-16.0); Lymphocytes # (A) 1.7 k/uL (1.0-4.8); Lymphocytes % (A) 23 %; MCH 30.8 pg (25.0-35.0); MCHC 33.6 g/dL (31.0-37.0); MCV 91.6 fL (80.0-100.0); Mean Platelet Volume 6.5; Monocytes # (A) 0.4 k/uL (0-1.0); Monocytes % (A) 5 %; Neutrophils % (A) 68 %; Platelet Count 207 k/uL (150-450); RBC 4.08 m/uL (3.80-5.40); RDW 14.7 % (11.5-15.5); WBC 7.4 k/uL (3.8-10.6)
--- NOTE | 2018-11-19 11:40 | ED ---
Chest Pain HPI - General Chief Complaint: Chest Pain Stated Complaint: chest pain Time Seen by Provider: 11/19/18 10:45 Source: patient, family, RN notes reviewed Mode of arrival: ambulatory Limitations: no limitations - History of Present Illness Initial Comments: This is a 78-year-old female presents emergency Department with chief complaint of chest pain. Patient states the chest pain started around 8 AM this morning. Patient states that she had chest pressure and tingling diarrhea. Her face and down. Patient states she did take 1 nitro which has helped. Patient states that on 11/03/2017 she had [address] David Price. Patient states that 3 days after she developed A. fib. Patient states that she was given medications which resolved. She does state that they want to place a pacemaker. Patient denies any palpitations currently. She states she had some shortness of breath that she gave her self nebulized treatment. She did state that helped. No current nausea vomiting she felt nauseous this morning. - Related Data Home Medications Medication Instructions Recorded Confirmed Albuterol Nebulized [Ventolin 2.5 mg INHALATION RT-QID PRN 08/17/14 11/19/18 Nebulized] Fluticasone/Salmeterol [Advair 1 puff INHALATION RT-BID 08/17/14 11/19/18 250-50 Diskus] Omeprazole [PriLOSEC] 20 mg PO AC-BRKFST 08/17/14 11/19/18 Sertraline [Zoloft] 50 mg PO DAILY 08/17/14 11/19/18 Calcium Citrate 250 mg PO BID 03/21/18 11/19/18 Cyanocobalamin [Vitamin B-12] 500 mcg PO DAILY 03/21/18 11/19/18 Montelukast Sodium [Singulair] 10 mg PO HS 03/21/18 11/19/18 Multivitamins, Thera [Multivitamin 1 tab PO DAILY 03/21/18 11/19/18 (formulary)] Ferrous Sulfate [Feosol] 325 mg PO DAILY 08/05/18 11/19/18 metFORMIN HCL [Glucophage] 850 mg PO BID 08/05/18 11/19/18 Aspirin EC [Ecotrin Low Dose] 81 mg PO DAILY 10/30/18 11/19/18 Halsey-3 Fatty Acids/Fish Oil [Fish 1 cap PO DAILY 10/30/18 11/19/18 Oil 1,000 mg Softgel] Previous Rx's Medication Instructions Recorded Atorvastatin [Lipitor] 80 mg PO DAILY #90 tab 11/04/18 Clopidogrel [Plavix] 75 mg PO DAILY #90 tab 11/04/18 Hydrochlorothiazide 25 mg PO DAILY #30 tablet 11/04/18 Nitroglycerin Sl Tabs [Nitrostat] 0.4 mg SUBLINGUAL Q5M PRN #25 tab 11/04/18 Olmesartan [Benicar] 40 mg PO DAILY #90 tab 11/04/18 ALPRAZolam [Xanax] 0.25 mg PO DAILY #0 11/08/18 Metoprolol Tartrate [Lopressor] 25 mg PO BID #60 tablet 11/09/18 hydrALAZINE HCL 50 mg PO TID #90 tablet 11/09/18 Allergies Allergy/AdvReac Type Severity Reaction Status Date / Time Sulfa (Sulfonamide Allergy Unknown Verified 11/19/18 11:23 Antibiotics) Childhood heparin AdvReac bloody nose Verified 11/19/18 11:23 Review of Systems ROS Statement: Those systems with pertinent positive or pertinent negative responses have been documented in the HPI. ROS Other: All systems not noted in ROS Statement are negative. EKG Findings - EKG Comments: EKG Findings:: EKG performed at 11:01 normal sinus rhythm with a rate of 60 SD 196 QRS 116 QT/QTC 496/496 Past Medical History Past Medical History: Asthma, Coronary Artery Disease (CAD), COPD, Diabetes Mellitus, GERD/Reflux, Hyperlipidemia, Hypertension, Myocardial Infarction ([place]) , Osteoarthritis (OA), Pneumonia, Sleep Apnea/CPAP/BIPAP Additional Past Medical History / Comment(s): Pneumonia-2012. NOT ABLE to use CPAP. States has "heart blockage." chronic blockage of the Cirr. pt has hx slow heart rate-alvaro. PAIN LOWER BACK W/ SCIATICA RT SIDE. OCC NT LENARD FEET See Dr. Breen has had a pne vaccine in past not sure of date-board writer unable to verify datre at time of admit.please f/u in amH&P. 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 Cataract surg. lap band 2008-since removed then had GASTRIC SLEEVE done. CARDIAC CATH X2 "2 stents rca"most recent heart cath 3 days ago EPIDURAL INJ X2 , Sinus surgery, 2 stents to the RCA. Past Anesthesia/Blood Transfusion Reactions: No Reported Reaction Date of Last Stent Placement:: 11/03/18 Past Psychological History: Anxiety, Depression Smoking Status: Former smoker Past Alcohol Use History: None Reported Past Drug Use History: None Reported - Past Family History Brother(s) Family Medical History: Cancer Additional Family Medical History / Comment(s): 5 BROTHER'S Father Family Medical History: Myocardial Infarction ([place]) General Exam Limitations: no limitations General appearance: alert, in no apparent distress ENT exam: Present: normal exam, normal oropharynx, mucous membranes moist, TM's normal bilaterally Neck exam: Present: normal inspection. Absent: tenderness, meningismus, lymphadenopathy Respiratory exam: Present: normal lung sounds bilaterally. Absent: respiratory distress, wheezes, rales, rhonchi, stridor Cardiovascular Exam: Present: regular rate, normal rhythm, normal heart sounds. Absent: systolic murmur, diastolic murmur, rubs, gallop, clicks GI/Abdominal exam: Present: soft, normal bowel sounds. Absent: distended, tenderness, guarding, rebound, rigid Course Vital Signs 11/19/18 10:37 Temperature 98.0 F Pulse Rate 68 Respiratory 18 Rate Blood Pressure 166/68 O2 Sat by Pulse 97 Oximetry Chest Pain [facility] 78-year-old female presented for chest pressure. Patient's symptoms were improved after nitro at home. Patient found to have hypomagnesemia and hypokalemia. Patient was given oral replacement. Patient will be admitted for chest pain rule out patient was started on heparin she states that she tolerated last several difficulty there was an ALLERGY listed for a bloody nose which is just possible side effect. Disposition Clinical Impression: Chest pain, Hypomagnesemia, Hypokalemia Disposition: ADMITTED IP TO THIS HOSP Condition: Stable Referrals: Gerri Joyce MD [Primary Care Provider] - 1-2 days
[2018-11-19 11:48] LABS: ALT 38 U/L (9-52); AST 26 U/L (14-36); Albumin 3.8 g/dL (3.5-5.0); Alkaline Phosphatase 40 U/L (38-126); Anion Gap 7 mmol/L; Blood Urea Nitrogen 11 mg/dL (7-17); Calcium 9.1 mg/dL (8.4-10.2); Carbon Dioxide 27 mmol/L (22-30); Chloride 105 mmol/L (98-107); Glucose 108 mg/dL (74-99); Lipase 79 U/L (23-300); Magnesium 1.4 mg/dL (1.6-2.3); Potassium 3.2 mmol/L (3.5-5.1); Sodium 139 mmol/L (137-145); Total Bilirubin 0.5 mg/dL (0.2-1.3); Total Protein 6.2 g/dL (6.3-8.2)
[2018-11-19 11:55] LABS: INR 1.1 (<1.2); Partial Thromboplastin Time 22.7 sec (22.0-30.0); Prothrombin Time 11.3 sec (9.0-12.0)
[2018-11-19 12:03] LABS: Creatine Kinase 70 U/L (30-135)
--- NOTE | 2018-11-19 12:09 | XR ---
EXAMINATION TYPE: XR chest 2V DATE OF EXAM: 11/19/2018 COMPARISON: 11/06/2018 HISTORY: 78-year-old female with chest pain TECHNIQUE: PA and lateral views FINDINGS: Heart upper limits of normal in size. Mild interstitial prominence largely unchanged. Some asymmetric right hilar prominence could be projectional related to hilar vessels. No consolidation or pleural e ffusion. IMPRESSION: Chronic-appearing changes. Right hilar prominence could be projectional related to superimposed vesse ls. No acute process seen. Refer to recommendations made on CT of 03/21/2018 for right upper lobe lesi on which could have represented a focal infiltrate or early lung cancer. Appropriate follow-up and wo rkup recommended if not already performed elsewhere.
[2018-11-19 12:16] LABS: Creatine Kinase MB 1.2 ng/mL (0.0-2.4); Troponin I <0.012 ng/mL (0.000-0.034)
[2018-11-19] MEDS ORDERED: POTASSIUM CHLORIDE ER 20 MEQ TAB.ER PO STA (12:28)
[2018-11-19] MEDS ORDERED: MAGNESIUM OXIDE 400 MG TAB PO STA (12:29)
[2018-11-19] MEDS ORDERED: NITROGLYCERIN SL TABS 0.4 MG TAB SUBLINGUAL PRN ×2 (12:33→15:51)
[2018-11-19] MEDS ORDERED: HEPARIN SODIUM,PORCINE 5,000 UNIT/ML 1 ML VIAL IV ONE (12:33)
[2018-11-19] MEDS ORDERED: HEPARIN SOD,PORK IN 0.45% NACL 25,000 UNIT in 0.45% NACL 1 250ML.BAG IV SCH (12:45)
[2018-11-19] MEDS ORDERED: ALBUTEROL NEBULIZED 2.5 MG/3 ML INHALATION PRN (15:49)
[2018-11-19 17:10] LABS: Glucose,Whole Blood 89 mg/dL (75-99)
[2018-11-19] MEDS: INSULIN ASPART (NovoLOG) 100 UNIT/ML VIAL SQ SCH ×2 (17:59→20:28)
[2018-11-19] MEDS: hydrALAZINE HCL 50 MG TAB PO SCH ×2 (18:04→20:27)
[2018-11-19 18:16] LABS: Creatine Kinase 60 U/L (30-135)
[2018-11-19 18:29] LABS: Creatine Kinase MB 1.4 ng/mL (0.0-2.4); Troponin I <0.012 ng/mL (0.000-0.034)
--- NOTE | 2018-11-19 20:13 | P.HPIM ---
History of Present Illness H&P Date: 11/19/18 Chief Complaint: Chest pain and angina, CAD, A. fib with RVR 78-year-old female one of Dr. Joyce's patient with past medical history of CAD, A. fib with RVR was hospitalized recently on 11/06/2018 to 11/09/2018 with A. fib with RVR happen shortly after she had a heart cath with angioplasty in 2 stent placement done by Dr. Breen. Patient has done very well till the last 24 hours when developed to have increased tightness and pressure in the midsternal area with slight worsening shortness of breath with minimum exertion become much worse lately and felt having more anginal symptoms similar to her blockage before her angioplasty few weeks earlier. Patient ended up coming to the emergency department at [facility]. CK with troponin was done and was negative, EKG didn't show any ST elevation at the time. Patient was placed on nitro paste started on heparin drip consult cardiology and admit patient to the hospital. Review of Systems CONSTITUTIONAL: Well-developed no acute respiratory distress. EYES: No icterus sclerae, no conjunctivitis. EARS, NOSE, MOUTH, THROAT, and FACE: No sore throat, lymphadenopathy, carotid bruits or deformity. RESPIRATORY: Positive shortness of breath and chest pain no wheezes CARDIOVASCULAR: Positive chest pain and Palpitation, no PND, Orthopnea, or angina. GASTROINTESTINAL: No Abd pain, Nausea or vomiting, no Diarrhea or constipation, No GI Bleed, no distention or masses. GENITOURINARY: Negative for Hematuria or UTI, no kidney stones. INTEGUMENT/BREAST: Negative for any muscular injury with mild osteoarthritis.. HEMATOLOGIC/LYMPHATIC: Negative for bleed or purpura. MUSCULOSKELTAL: Negative for Myalgia or arthralgia. NEURLOGICAL: No LOC, Sz or syncope, blurred vision dizziness or abnormality.. BEHAVIORAL/PSYCH: Negative. ENDOCRINE: Negative. Past Medical History Past Medical History: Asthma, Coronary Artery Disease (CAD), COPD, Diabetes Mellitus, GERD/Reflux, Hyperlipidemia, Hypertension, Myocardial Infarction (CO), Osteoarthritis (OA), Pneumonia, Skin Disorder, Sleep Apnea/CPAP/BIPAP Additional Past Medical History / Comment(s): Pt recently admitted to [facility] on 11/06/18 with new Afib RVR/junctional rhythm that resolved, R femoral AV fistula. Other hx: ABBEY-cannot tolerate Cpap, silent CO per pt, cardiomyopathy, circumflex occluded, recent stenting RCA, mitral regurg, pt states she will need a pacemaker and a shunt for her A/V fistula once she is able to be taken off of plavix, NIDDM type II, neuropathy bilateral feet, IBS, H pylori and pt and rogelio states she was diagnosed with lymphoma (stomach) and that it was treated with aantibiotics, psoriasis. 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 Past Anesthesia/Blood Transfusion Reactions: No Reported Reaction Additional Past Anesthesia/Blood Transfusion Reaction / Comment(s): Pt has received blood in past without reaction. Date of Last Stent Placement:: 11/03/18 Smoking Status: Former smoker - Past Family History Brother(s) Family Medical History: Cancer Additional Family Medical History / Comment(s): 5 BROTHER'S HAD DIFFERENT TYPES OF CANCER. Father Family Medical History: Myocardial Infarction (CO) Additional Family Medical History / Comment(s): Father of a CO at the age of 44yrs. Mother Family Medical History: No Reported History Additional Family Medical History / Comment(s): Mother was healthy Medications and Allergies Home Medications Medication Instructions Recorded Confirmed Type Albuterol Nebulized [Ventolin 2.5 mg INHALATION RT-QID PRN 08/17/14 11/19/18 History Nebulized] Fluticasone/Salmeterol [Advair 1 puff INHALATION RT-BID 08/17/14 11/19/18 History 250-50 Diskus] Omeprazole [PriLOSEC] 20 mg PO AC-BRKFST 08/17/14 11/19/18 History Sertraline [Zoloft] 50 mg PO DAILY 08/17/14 11/19/18 History Calcium Citrate 250 mg PO BID 03/21/18 11/19/18 History Cyanocobalamin [Vitamin B-12] 500 mcg PO DAILY 03/21/18 11/19/18 History Montelukast Sodium [Singulair] 10 mg PO HS 03/21/18 11/19/18 History Multivitamins, Thera [Multivitamin 1 tab PO DAILY 03/21/18 11/19/18 History (formulary)] Ferrous Sulfate [Feosol] 325 mg PO DAILY 08/05/18 11/19/18 History metFORMIN HCL [Glucophage] 850 mg PO BID 08/05/18 11/19/18 History Aspirin EC [Ecotrin Low Dose] 81 mg PO DAILY 10/30/18 11/19/18 History Weston-3 Fatty Acids/Fish Oil [Fish 1 cap PO DAILY 10/30/18 11/19/18 History Oil 1,000 mg Softgel] Atorvastatin [Lipitor] 80 mg PO DAILY #90 tab 11/04/18 11/19/18 Rx Clopidogrel [Plavix] 75 mg PO DAILY #90 tab 11/04/18 11/19/18 Rx Hydrochlorothiazide 25 mg PO DAILY #30 tablet 11/04/18 11/19/18 Rx Nitroglycerin Sl Tabs [Nitrostat] 0.4 mg SUBLINGUAL Q5M PRN #25 tab 11/04/18 11/19/18 Rx Olmesartan [Benicar] 40 mg PO DAILY #90 tab 11/04/18 11/19/18 Rx ALPRAZolam [Xanax] 0.25 mg PO DAILY #0 11/08/18 11/19/18 Rx Metoprolol Tartrate [Lopressor] 25 mg PO BID #60 tablet 11/09/18 11/19/18 Rx hydrALAZINE HCL 50 mg PO TID #90 tablet 11/09/18 11/19/18 Rx Allergies Allergy/AdvReac Type Severity Reaction Status Date / Time Sulfa (Sulfonamide Allergy Unknown Verified 11/19/18 11:23 Antibiotics) Childhood heparin AdvReac bloody nose Verified 11/19/18 11:23 Physical Exam Vitals: Vital Signs Temp Pulse Pulse Resp BP BP Pulse Ox 11/19/18 17:14 97 F L 70 16 182/72 97 11/19/18 15:30 59 L 16 160/74 97 11/19/18 15:00 63 18 170/64 97 11/19/18 14:30 61 14 189/66 98 11/19/18 14:00 63 10 L 182/67 99 11/19/18 13:30 61 11 L 181/69 98 11/19/18 13:00 63 28 H 173/62 11/19/18 12:30 60 15 193/68 98 11/19/18 12:00 60 19 188/71 98 11/19/18 11:30 62 14 198/68 98 11/19/18 11:03 10 L 11/19/18 10:37 98.0 F 68 18 166/68 97 Intake and Output 11/19/18 11/19/18 11/19/18 06:59 14:59 22:59 Intake Total 0 Balance 0 Intake: Oral 0 Other: # Voids 0 Weight 83.007 kg General Appearance: Alert, cooperative, no distress, appears stated age. Neck HEENT: Supple, no lymphadenopathy, no thyroid enlargement, no carotid bruits. Lungs: Clear to auscultation without crackles or wheezes no rhonchi, no deform ity. Chest Wall: Chest wall normal expansion with deep inspiration no tenderness and no deformity was found on exam, no costochondral pain or discomfort. Heart: Regular rate and rhythm, S1, S2 normal, no murmur, rub or gallop. Back: Symmetric, no curvature, ROM normal, no CVA tenderness. Abdomen: Soft, non-tender, bowel sounds active all four quadrants, no masses, no organomegaly. Extremities: Extremities normal, atraumatic, no cyanosis or edema. Pulses: 2+ and symmetric. Skin: Skin color, texture, tugor normal, no rashes or lesions. Neurologic: Alert oriented x3 cranial nerves II through XII intact, no motor deficit, no abnormal balance or gait. Results CBC & Chem 7: 11/19/18 11:27 11/19/18 11:27 Labs: Abnormal Lab Results - Last 24 Hours (Table) 11/19/18 11/19/18 Range/Units 11:27 18:33 APTT 68.3 H (22.0-30.0) sec Potassium 3.2 L (3.5-5.1) mmol/L Glucose 108 H (74-99) mg/dL Magnesium 1.4 L (1.6-2.3) mg/dL Total Protein 6.2 L (6.3-8.2) g/dL Thrombosis Risk Factor Assmnt - DVT/VTE Prophylaxis DVT/VTE Prophylaxis: Pharmacologic Prophylaxis ordered, Mechanical Prophylaxis ordered - Choose All That Apply Any of the Below Risk Factors Present?: Yes Each Factor Represents 1 point: Abnormal pulmonary function (COPD), Obesity (BMI >25) Other Risk Factors: Yes Each Risk Factor Represents 3 Points: Age 75 years or older Other congenital or acquired thrombophilia - If yes, enter type in comment: No Thrombosis Risk Factor Assessment Total Risk Factor Score: 5 Thrombosis Risk Factor Assessment Level: High Risk Assessment and Plan Plan: 1 unstable angina: With patient's current symptom and recent angioplasty patient was admitted to the hospital serial CK with troponin will be done, will consult cardiology, continue patient on nitro and heparin drip for now depend on the result with the side for further management if any elevation in troponin patient might need to go for an intervention again. 2 CAD: With multiple angioplasty and stent placement, patient still on secondary prevention with this event with the possibility of stent thrombosis as failure to Plavix is a possibility but still extremely early for it at this point. If elevated troponin might require to go for an angiogram. 3 A. fib with RVR: Patient is pulse rates under control currently and was on Xarelto 15 mg before she left the hospital last time spot on her current medication, patient remain on heparin drip and still will make further decision was cardiology. 4 type 2 diabetes: Has been on metformin 850 mg twice a day continue medication continue Accu-Chek with sliding scales coverage. 5 hyperlipidemia: Has been on atorvastatin 80 mg daily. 6 Hypertension: Patient has been on hydralazine 50 mg twice a day along with Benicar 40 mg daily metoprolol 25 mg twice a day and hydrochlorothiazide 25 mg a day. 7 asthma/COPD: Has been on Ventolin nebulizer 4 times a day along with Advair and Singulair.. 8 depression: Has been on Zoloft 50 mg daily continue medication. 9 severe GERD/GI prophylaxis: Patient was started on metoprolol 40 mg daily. 10 CODE STATUS: Full code. Admit patient to inpatient status for more than 2 nights.
[2018-11-19 20:15] VITALS: RESP 20
[2018-11-19 20:27] LABS: Glucose,Whole Blood 92 mg/dL (75-99)
[2018-11-19] MEDS: METOPROLOL TARTRATE 25 MG TAB PO SCH (20:27)
[2018-11-19] MEDS ORDERED: MONTELUKAST 10 MG TAB PO SCH (21:00)
[2018-11-19] MEDS: SYMBICORT 80-4.5 MCG INHALER INHALATION SCH (21:01)
[2018-11-20 00:11] LABS: Creatine Kinase 53 U/L (30-135)
[2018-11-20 00:25] LABS: Troponin I <0.012 ng/mL (0.000-0.034)
[2018-11-20] MEDS: INSULIN ASPART (NovoLOG) 100 UNIT/ML VIAL SQ SCH (06:34)
[2018-11-20] MEDS ORDERED: PANTOPRAZOLE 40 MG TABLET PO SCH (07:30)
[2018-11-20] MEDS: SYMBICORT 80-4.5 MCG INHALER INHALATION SCH (08:20)
[2018-11-20] MEDS: hydrALAZINE HCL 50 MG TAB PO SCH (08:31)
[2018-11-20 08:43] LABS: Anion Gap 7 mmol/L; Blood Urea Nitrogen 10 mg/dL (7-17); Calcium 8.9 mg/dL (8.4-10.2); Carbon Dioxide 29 mmol/L (22-30); Chloride 105 mmol/L (98-107); Cholesterol 108 mg/dL (<200); Glucose 93 mg/dL (74-99); HDL Cholesterol 50 mg/dL (40-60); LDL Cholesterol,Calculated 33 mg/dL (0-99); Potassium 3.5 mmol/L (3.5-5.1); Sodium 141 mmol/L (137-145); Triglycerides 123 mg/dL (<150)
--- NOTE | 2018-11-20 08:53 | P.CRDCN ---
History of Present Illness Consult date: 11/20/18 Requesting physician: Evan Mercado Consult reason: chest pain Chief complaint: Chest pain History of present illness: This is a pleasant 78-year-old female with history of severe mitral regurgitation for which the patient recently underwent a cardiac catheterization and was found to have critical stenosis in the LAD with no significant mitral regurgitation. Subsequently patient underwent angioplasty and stenting of the right coronary artery., hyperlipidemia, hypertension. She had a subsequent admission to the hospital after her stent placement with atrial fibrillation with rapid ventricular response. She presents to the hospital on this occasion with symptoms of chest discomfort. According to the patient around 8:00 yesterday morning she developed a pressure sensation in the center of her chest, she states that she had an associated angling feeling which went up into her jaw area. She took one sublingual nitroglycerin at home and states that since then she has not had any further symptoms. Her EKG on presentation here showed a normal sinus rhythm with no acute changes noted, subsequent EKG performed this morning shows normal sinus rhythm with nonspecific ST-T wave changes noted in the inferior leads. Chest x-ray showed chronic appearing changes, right hilar prominence could be projectional related to superimposed S1. Blood pressure on arrival here 157/60 with a heart rate in the 50s to 60s, 95% on room air. Her blood pressure this morning is 200/60 with a heart rate in the 60s, 94% on room air. White blood cell count 7.4, hemoglobin 12.6, platelet count 207. Sodium 139, potassium 3.2, BUN 11 and creatinine 0.5. Magnesium 1.4. Troponins negative 3. BNP level 1160. At the time of my examination this morning she is currently chest pain-free. Past Medical History Past Medical History: Asthma, Coronary Artery Disease (CAD), COPD, Diabetes Mellitus, GERD/Reflux, Hyperlipidemia, Hypertension, Myocardial Infarction (DE) , Osteoarthritis (OA), Pneumonia, Skin Disorder, Sleep Apnea/CPAP/BIPAP Additional Past Medical History / Comment(s): Pt recently admitted to [facility] on 11/06/18 with new Afib RVR/junctional rhythm that resolved, R femoral AV fistula. Other hx: ABBEY-cannot tolerate Cpap, silent DE per pt, cardiomyopathy, circumflex occluded, recent stenting RCA, mitral regurg, pt states she will need a pacemaker and a shunt for her A/V fistula once she is able to be taken off of plavix, NIDDM type II, neuropathy bilateral feet, IBS, H pylori and pt and rogelio states she was diagnosed with lymphoma (stomach) and that it was treated with aantibiotics, psoriasis. 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 Past Anesthesia/Blood Transfusion Reactions: No Reported Reaction Additional Past Anesthesia/Blood Transfusion Reaction / Comment(s): Pt has received blood in past without reaction. Date of Last Stent Placement:: 11/03/18 Smoking Status: Former smoker - Past Family History Brother(s) Family Medical History: Cancer Additional Family Medical History / Comment(s): 5 BROTHER'S HAD DIFFERENT TYPES OF CANCER. Father Family Medical History: Myocardial Infarction (DE) Additional Family Medical History / Comment(s): Father of a DE at the age of 44yrs. Mother Family Medical History: No Reported History Additional Family Medical History / Comment(s): Mother was healthy Medications and Allergies Home Medications Medication Instructions Recorded Confirmed Type Albuterol Nebulized [Ventolin 2.5 mg INHALATION RT-QID PRN 08/17/14 11/19/18 History Nebulized] Fluticasone/Salmeterol [Advair 1 puff INHALATION RT-BID 08/17/14 11/19/18 History 250-50 Diskus] Omeprazole [PriLOSEC] 20 mg PO AC-BRKFST 08/17/14 11/19/18 History Sertraline [Zoloft] 50 mg PO DAILY 08/17/14 11/19/18 History Calcium Citrate 250 mg PO BID 03/21/18 11/19/18 History Cyanocobalamin [Vitamin B-12] 500 mcg PO DAILY 03/21/18 11/19/18 History Montelukast Sodium [Singulair] 10 mg PO HS 03/21/18 11/19/18 History Multivitamins, Thera [Multivitamin 1 tab PO DAILY 03/21/18 11/19/18 History (formulary)] Ferrous Sulfate [Feosol] 325 mg PO DAILY 08/05/18 11/19/18 History metFORMIN HCL [Glucophage] 850 mg PO BID 08/05/18 11/19/18 History Aspirin EC [Ecotrin Low Dose] 81 mg PO DAILY 10/30/18 11/19/18 History Tow-3 Fatty Acids/Fish Oil [Fish 1 cap PO DAILY 10/30/18 11/19/18 History Oil 1,000 mg Softgel] Atorvastatin [Lipitor] 80 mg PO DAILY #90 tab 11/04/18 11/19/18 Rx Clopidogrel [Plavix] 75 mg PO DAILY #90 tab 11/04/18 11/19/18 Rx Hydrochlorothiazide 25 mg PO DAILY #30 tablet 11/04/18 11/19/18 Rx Nitroglycerin Sl Tabs [Nitrostat] 0.4 mg SUBLINGUAL Q5M PRN #25 tab 11/04/18 Rx Olmesartan [Benicar] 40 mg PO DAILY #90 tab 11/04/18 11/19/18 Rx ALPRAZolam [Xanax] 0.25 mg PO DAILY #0 11/08/18 11/19/18 Rx Metoprolol Tartrate [Lopressor] 25 mg PO BID #60 tablet 11/09/18 11/19/18 Rx hydrALAZINE HCL 50 mg PO TID #90 tablet 11/09/18 11/19/18 Rx Allergies Allergy/AdvReac Type Severity Reaction Status Date / Time Sulfa (Sulfonamide Allergy Unknown Verified 11/19/18 11:23 Antibiotics) Childhood heparin AdvReac bloody nose Verified 11/19/18 11:23 Physical Exam Vitals: Vital Signs Temp Pulse Pulse Resp BP BP Pulse Ox 11/20/18 07:47 98.2 F 57 L 20 200/60 94 L 11/20/18 04:00 97.6 F 58 L 20 181/81 97 11/20/18 00:00 97.7 F 58 L 16 161/67 94 L 11/19/18 21:02 94 L 11/19/18 20:00 97.9 F 65 20 185/81 95 11/19/18 17:14 97 F L 70 16 182/72 97 11/19/18 15:30 59 L 16 160/74 97 11/19/18 15:00 63 18 170/64 97 11/19/18 14:30 61 14 189/66 98 11/19/18 14:00 63 10 L 182/67 99 11/19/18 13:30 61 11 L 181/69 98 11/19/18 13:00 63 28 H 173/62 11/19/18 12:30 60 15 193/68 98 11/19/18 12:00 60 19 188/71 98 11/19/18 11:30 62 14 198/68 98 11/19/18 11:03 10 L 11/19/18 10:37 98.0 F 68 18 166/68 97 Intake and Output 11/19/18 11/20/18 11/20/18 22:59 06:59 14:59 Intake Total 227.19 Balance 227.19 Intake: Intake, IV Titration 77.19 Amount Heparin Sod,Pork in 0.45% 77.19 NaCl 25,000 unit In 0.45 % NaCl 1 250ml.bag @ 12 UNITS/KG/HR 9.96 mls/hr IV .Q24H [facility] Rx#: [id number] Oral 150 Other: Voiding Method Toilet Toilet # Voids 1 1 Weight 83.6 kg PHYSICAL EXAMINATION: GENERAL: 78-year-old female in no acute distress at the time of my examination HEENT: Head is atraumatic, normocephalic. Pupils equal, round. Sclera anicteric. Conjunctiva are clear. Mucous membranes of the mouth are moist. Neck is supple. There is no elevated jugular venous pressure. No carotid bruit is heard. HEART EXAMINATION: Heart S1 S2 1 systolic murmur is heard at the apex. CHEST EXAMINATION: Lungs are clear to auscultation and precussion. No chest wall tenderness is noted on palpation or with deep breathing. ABDOMEN: Soft, nontender. Bowel sounds are heard. No organomegaly noted. EXTREMITIES: 2+ peripheral pulses with no evidence of peripheral edema and no calf tenderness noted.loud bruit heard at right groin NEUROLOGIC patient is awake, alert and oriented 3 . . Results 11/19/18 11:27 11/20/18 07:43 Cardiac Enzymes 11/19/18 11/19/18 11/19/18 Range/Units 11:27 11:27 17:21 AST 26 (14-36) U/L CK-MB (CK-2) 1.2 1.4 (0.0-2.4) ng/mL Troponin I <0.012 <0.012 (0.000-0.034) ng/mL 11/19/18 Range/Units 23:17 AST (14-36) U/L CK-MB (CK-2) 1.0 (0.0-2.4) ng/mL Troponin I <0.012 (0.000-0.034) ng/mL Coagulation 11/19/18 11/19/18 11/20/18 Range/Units 11:27 18:33 07:43 PT 11.3 (9.0-12.0) sec APTT 22.7 68.3 H 49.0 H (22.0-30.0) sec CBC 11/19/18 Range/Units 11:27 WBC 7.4 (3.8-10.6) k/uL RBC 4.08 (3.80-5.40) m/uL Hgb 12.6 (11.4-16.0) gm/dL Hct 37.3 (34.0-46.0) % Plt Count 207 (150-450) k/uL Comprehensive Metabolic Panel 11/19/18 Range/Units 11:27 Sodium 139 (137-145) mmol/L Potassium 3.2 L (3.5-5.1) mmol/L Chloride 105 (98-107) mmol/L Carbon Dioxide 27 (22-30) mmol/L BUN 11 (7-17) mg/dL Creatinine 0.56 (0.52-1.04) mg/dL Glucose 108 H (74-99) mg/dL Calcium 9.1 (8.4-10.2) mg/dL AST 26 (14-36) U/L ALT 38 (9-52) U/L Alkaline Phosphatase 40 (38-126) U/L Total Protein 6.2 L (6.3-8.2) g/dL Albumin 3.8 (3.5-5.0) g/dL Current Medications Generic Name Dose Route Start Last Admin Trade Name Freq PRN Reason Stop Dose Admin Albuterol Sulfate 2.5 mg 11/19/18 15:49 Ventolin Nebulized INHALATION RT-QID PRN Shortness Of Breath Alprazolam 0.25 mg 11/20/18 09:00 Xanax PO DAILY [facility] Aspirin 81 mg 11/20/18 09:00 11/20/18 08:31 Aspirin PO 81 mg DAILY [facility] Administration Atorvastatin Calcium 80 mg 11/20/18 09:00 Lipitor PO DAILY [facility] Budesonide/Formoterol Fumarate 2 puff 11/19/18 20:00 11/20/18 08:20 Symbicort 80-4.5 Mcg Inhaler INHALATION 2 puff RT-BID [facility] Administration Clopidogrel Bisulfate 75 mg 11/20/18 09:00 11/20/18 08:31 Plavix PO 75 mg DAILY [facility] Administration Cyanocobalamin 500 mcg 11/20/18 09:00 Vitamin B-12 PO DAILY [facility] Ferrous Sulfate 325 mg 11/20/18 09:00 Feosol PO DAILY [facility] Hydralazine HCl 50 mg 11/19/18 16:00 11/20/18 08:31 Apresoline PO 50 mg TID [facility] Administration Hydrochlorothiazide 25 mg 11/20/18 09:00 11/20/18 08:31 Hydrodiuril PO 25 mg DAILY [facility] Administration Heparin Sodium/Sodium Chloride 250 mls @ 9.96 mls/hr 11/19/18 12:45 11/19/18 20:42 25,000 unit/ Sodium Chloride IV 12 units/kg/hr .Q24H [facility] 9.96 mls/hr Titration Protocol 12 UNITS/KG/HR Insulin Aspart 0 unit 11/19/18 17:30 11/20/18 06:34 Novolog SQ Not Given ACHS [facility] Protocol Losartan Potassium 150 mg 11/20/18 09:00 11/20/18 08:31 Cozaar PO 150 mg DAILY [facility] Administration Metoprolol Tartrate 25 mg 11/19/18 21:00 11/19/18 20:27 Lopressor PO 25 mg BID [facility] Administration Montelukast Sodium 10 mg 11/19/18 21:00 11/19/18 20:27 Singulair PO 10 mg HS [facility] Administration Multivitamins 1 each 11/20/18 12:00 Theragran PO DAILY@1200 [facility] Nitroglycerin 0.4 mg 11/19/18 12:33 Nitrostat SUBLINGUAL Q5M PRN Chest Pain Nitroglycerin 0.4 mg 11/19/18 15:51 Nitrostat SUBLINGUAL Q5M PRN Chest Pain Pantoprazole Sodium 40 mg 11/20/18 07:30 11/20/18 08:31 Protonix PO 40 mg AC-BRKFST [facility] Administration Sertraline HCl 50 mg 11/20/18 09:00 Zoloft PO DAILY [facility] Intake and Output 11/19/18 11/20/18 11/20/18 22:59 06:59 14:59 Intake Total 227.19 Balance 227.19 Intake: Intake, IV Titration 77.19 Amount Heparin Sod,Pork in 0.45% 77.19 NaCl 25,000 unit In 0.45 % NaCl 1 250ml.bag @ 12 UNITS/KG/HR 9.96 mls/hr IV .Q24H [facility] Rx#: [id number] Oral 150 Other: Voiding Method Toilet Toilet # Voids 1 1 Weight 83.6 kg 11/19/18 11:27 11/19/18 11:27 EKG Interpretations (text) EKG shows a normal sinus rhythm with nonspecific ST-T wave changes noted in the inferior leads. Assessment and Plan Plan: Assessment and plan #1 chest pain, troponins negative 3. EKG does not reveal any acute changes. Patient had recent angioplasty and stenting of the right coronary artery earlier this month. Patient has a chronically occluded circumflex with mild disease in the LAD #2 paroxysmal atrial fibrillation, was started on xaelto which was discontinued secondary to hemoptysis, was to resume it today. #3 diabetes #4 hyperlipidemia #5 hypertension, uncontrolled #6 asthma COPD #7 GERD #8 mitral regurgitation, by echo patient was found to have severe mitral regurgitation, by left ventriculography performed with cath earlier this month, there appeared to be about a 2+ mitral regurgitation. #9 AV fistula Plan We will obtain an echocardiogram with Doppler study. Continue aspirin, Lipitor , Plavix, metoprolol and losartan. We will stop aspirin and put the patient on Plavix and Xarelto 15. Lexiscan today. Further recommendations to follow. DNP note has been reviewed, I agree with a documented findings and plan of care. Patient was seen and examined.
[2018-11-20] MEDS ORDERED: CYANOCOBALAMIN 500 MCG TAB PO SCH (09:00)
[2018-11-20] MEDS ORDERED: HYDROCHLOROTHIAZIDE 25 MG TAB PO SCH (09:00)
[2018-11-20] MEDS ORDERED: ATORVASTATIN 80 MG TAB PO SCH (09:00)
[2018-11-20] MEDS ORDERED: FERROUS SULFATE 325 MG TAB PO SCH (09:00)
[2018-11-20] MEDS ORDERED: ALPRAZolam 0.25 MG TAB PO SCH (09:00)
[2018-11-20] MEDS ORDERED: LOSARTAN 50 MG TAB PO SCH (09:00)
[2018-11-20] MEDS ORDERED: ASPIRIN 325 MG TAB PO SCH (09:00)
[2018-11-20] MEDS ORDERED: ASPIRIN 81 MG PO SCH (09:00)
[2018-11-20] MEDS ORDERED: CLOPIDOGREL 75 MG TAB PO SCH (09:00)
[2018-11-20] MEDS ORDERED: SERTRALINE 50 MG TAB PO SCH (09:00)
[2018-11-20] MEDS ORDERED: amLODIPine 5 MG TAB PO SCH (09:45)
[2018-11-20] MEDS ORDERED: NITROGLYCERIN OINT 1 INCH/GM PACKET TOPICAL SCH (09:45)
[2018-11-20] MEDS ORDERED: REGADENOSON 0.4 MG/5 ML SYRINGE IV ONE (09:55)
[2018-11-20] MEDS ORDERED: CAFFEINE CITRATE 60 MG/3 ML VIAL IV PRN (09:55)
[2018-11-20] MEDS: METOPROLOL TARTRATE 25 MG TAB PO SCH (10:11)
[2018-11-20] MEDS ORDERED: MULTIVITAMINS, THERA 1 EACH TAB PO SCH (12:00)
[2018-11-20 12:03] LABS: Glucose,Whole Blood 104 mg/dL (75-99)
[2018-11-20 13:02] LABS: Glucose,Whole Blood 105 mg/dL (75-99)
--- NOTE | 2018-11-20 13:13 | NM ---
EXAMINATION TYPE: NM stress lexiscan cardiolite DATE OF EXAM: 11/20/2018 COMPARISON: NONE HISTORY: Chest pain TECHNIQUE: After the intravenous administration of 9.95 mCi Tc 99m Sestamibi - Cardiolite resting SP ECT images acquired 45 minutes post injection. The patient received 0.4mg Lexiscan, 24.3 mCi Tc 99m Sestamibi - Stress images obtained [address] injection FINDINGS: Review of stress and rest SPECT images demonstrates no distinct perfusion abnormality. The fixed defe ct seen in the lateral wall suggested on the cardiac segment map is not seen on raw data and there is no abnormal wall motion therefore this relates to artifact. Gated analysis shows normal wall motion with an estimated left ventricular ejection fraction of 69 %. TID is calculated within normal limits at 0.92. IMPRESSION: No scintigraphic evidence for reversible ischemia. Estimated left ventricular ejection fraction of 69 %.
[2018-11-20 13:15] VITALS: BP 201/82; PULSE 59; TEMP 97.9
--- NOTE | 2018-11-20 13:31 | ECHOF ---
Referral Reason:LVF MEASUREMENTS -------- HEIGHT: 157.5 cm WEIGHT: 83.5 kg BP: RVIDd: 3.3 cm (< 3.3) IVSd: 1.4 cm (0.6 - 1.1) LVIDd: 3.2 cm (3.9 - 5.3) LVPWd: 1.5 cm (0.6 - 1.1) IVSs: 2.0 cm LVIDs: 1.5 cm LVPWs: 1.9 cm LAESV Index (A-L): 25.56 ml/m Ao Diam: 3.0 cm (2.0 - 3.7) AV Cusp: 1.6 cm (1.5 - 2.6) LA Diam: 3.8 cm (2.7 - 3.8) MV EXCURSION: 11.453 mm (> 18.000) MV EF SLOPE: 22 mm/s (70 - 150) EPSS: 0.2 cm MV E Rito: 1.03 m/s MV DecT: 343 ms MV A Rito: 1.04 m/s MV E/A Ratio: 0.99 AV maxP.51 mmHg AV meanP.19 mmHg AR PHT: 654 ms RAP: 5.00 mmHg RVSP: 42.99 mmHg FINDINGS -------- Sinus rhythm. This was a technically good study. The left ventricular size is normal. There is moderate concentric left ventricular hypertrophy. O verall left ventricular systolic function is low-normal with, an EF between 50 - 55 %. The right ventricle is normal in size and function. Normal LA size by volume 22+/-6 ml/m2. The right atrium is normal in size. Aortic valve is trileaflet and is mildly thickened. Trace amount of aortic regurgitation. The mitral valve leaflets are mildly thickened. Xhrn-ew-vetfdmfy mitral regurgitation is present , predominately an anteriorly directed jet. Mild prolapse of the posterior mitral valve leaflet. Mild tricuspid regurgitation present. The right ventricular systolic pressure, as measured by Doppl er, is 42.99mmHg. Pulmonic valve appears structurally normal. The aortic root size is normal. Normal inferior vena cava with normal inspiratory collapse consistent with estimated right atrial pre ssure of 5 mmHg. The pericardium is normal. There is a trivial pericardial effusion present. CONCLUSIONS -------- 1. Sinus rhythm. 2. This was a technically good study. 3. The left ventricular size is normal. 4. There is moderate concentric left ventricular hypertrophy. 5. Overall left ventricular systolic function is low-normal with, an EF between 50 - 55 %. 6. The right ventricle is normal in size and function. 7. Normal LA size by volume 22+/-6 ml/m2. 8. The right atrium is normal in size. 9. Aortic valve is trileaflet and is mildly thickened. 10. Trace amount of aortic regurgitation. 11. The mitral valve leaflets are mildly thickened. 12. Punn-jh-skgebmrf mitral regurgitation is present. 13. , predominately an anteriorly directed jet. 14. Mild prolapse of the posterior mitral valve leaflet. 15. Mild tricuspid regurgitation present. 16. The right ventricular systolic pressure, as measured by Doppler, is 42.99mmHg. 17. Pulmonic valve appears structurally normal. 18. The aortic root size is normal. 19. Normal inferior vena cava with normal inspiratory collapse consistent with estimated right atrial pressure of 5 mmHg. 20. The pericardium is normal. 21. There is a trivial pericardial effusion present. UNDERCUTTER: Roxie Peterson, TAMIRCS
--- NOTE | 2018-11-20 14:19 | P.DS ---
Providers Date of admission: 11/19/18 13:14 Expected date of discharge: 11/20/18 Attending physician: Gerri Joyce Consults: 11/19/18 12:33 Consult Physician Urgent Consulting Provider: Glenna Breen Consult Reason/Comments: chest pain Do you want consulting provider notified?: Yes Primary care physician: Gerri Joyce [facility] Course: 78-year-old female one of Dr. Joyce's patient with past medical history of CAD, A. fib with RVR was hospitalized recently on 11/06/2018 to 11/09/2018 with A. fib with RVR happen shortly after she had a heart cath with angioplasty in 2 stent placement done by Dr. Breen. Patient has done very well till the last 24 hours when developed to have increased tightness and pressure in the midsternal area with slight worsening shortness of breath with minimum exertion become much worse lately and felt having more anginal symptoms similar to her blockage before her angioplasty few weeks earlier. Patient ended up coming to the emergency department at [facility]. CK with troponin was done and was negative, EKG didn't show any ST elevation at the time. Patient was placed on nitro paste started on heparin drip consult cardiology and admit patient to the hospital. 11/20: Patient states that she has done well overnight. She denies any chest pain at this time. Troponins have been negative on 3 draws and she remains on heparin drip. She has been seen by cardiology. Echocardiogram reveals EF of 50- 55% with moderate concentric left nuclear hypertrophy, trace aortic regurgitation, moderate mitral regurgitation, mild tricuspid regurgitation. Noreen scan stress test shows no reversible ischemia. EF 69%. Cardiology is recommending discontinuing aspirin, start Xarelto along with Plavix. Amlodipine added for blood pressure control. Patient will be discharged home today in stable condition. Discharge diagnoses: 1 unstable angina 2 CAD: With multiple angioplasty and stent placement 3 A. fib with RVR, paroxysmal atrial fibrillation 4 type 2 diabetes 5 hyperlipidemia 6 Hypertension 7 COPD 8 recurrent depression 9 severe GERD Discharge plan: Home Impression and plan of care have been directed as dictated by the signing physician. Angie Castellon nurse practitioner acting as scribe for signing physician. Patient Condition at Discharge: Good Plan - Discharge Summary Discharge Rx Participant: No New Discharge Prescriptions: New amLODIPine [Norvasc] 5 mg PO DAILY #30 tab Rivaroxaban [Xarelto] 15 mg PO DAILY@0800 #30 tab Continue Albuterol Nebulized [Ventolin Nebulized] 2.5 mg INHALATION RT-QID PRN PRN Reason: Shortness Of Breath Sertraline [Zoloft] 50 mg PO DAILY Fluticasone/Salmeterol [Advair 250-50 Diskus] 1 puff INHALATION RT-BID Omeprazole [PriLOSEC] 20 mg PO [facility] Multivitamins, Thera [Multivitamin (formulary)] 1 tab PO DAILY Cyanocobalamin [Vitamin B-12] 500 mcg PO DAILY Montelukast Sodium [Singulair] 10 mg PO HS Calcium Citrate 250 mg PO BID metFORMIN HCL [Glucophage] 850 mg PO BID Ferrous Sulfate [Feosol] 325 mg PO DAILY [place]-3 Fatty Acids/Fish Oil [Fish Oil 1,000 mg Softgel] 1 cap PO DAILY Atorvastatin [Lipitor] 80 mg PO DAILY #90 tab Clopidogrel [Plavix] 75 mg PO DAILY #90 tab Nitroglycerin Sl Tabs [Nitrostat] 0.4 mg SUBLINGUAL Q5M PRN #25 tab PRN Reason: Chest Pain Olmesartan [Benicar] 40 mg PO DAILY #90 tab Hydrochlorothiazide 25 mg PO DAILY #30 tablet ALPRAZolam [Xanax] 0.25 mg PO DAILY #0 hydrALAZINE HCL 50 mg PO TID #90 tablet Metoprolol Tartrate [Lopressor] 25 mg PO BID #60 tablet Discontinued Aspirin EC [Ecotrin Low Dose] 81 mg PO DAILY Discharge Medication List Albuterol Nebulized [Ventolin Nebulized] 2.5 mg INHALATION RT-QID PRN 08/17/14 [History] Fluticasone/Salmeterol [Advair 250-50 Diskus] 1 puff INHALATION RT-BID 08/17/14 [History] Omeprazole [PriLOSEC] 20 mg PO -KT 08/17/14 [History] Sertraline [Zoloft] 50 mg PO DAILY 08/17/14 [History] Calcium Citrate 250 mg PO BID 03/21/18 [History] Cyanocobalamin [Vitamin B-12] 500 mcg PO DAILY 03/21/18 [History] Montelukast Sodium [Singulair] 10 mg PO HS 06/23/18 [History] Multivitamins, Thera [Multivitamin (formulary)] 1 tab PO DAILY 03/21/18 [History] Ferrous Sulfate [Feosol] 325 mg PO DAILY 08/05/18 [History] metFORMIN HCL [Glucophage] 850 mg PO BID 08/05/18 [History] [place]-3 Fatty Acids/Fish Oil [Fish Oil 1,000 mg Softgel] 1 cap PO DAILY 10/30/18 [History] Atorvastatin [Lipitor] 80 mg PO DAILY #90 tab 11/04/18 [Rx] Clopidogrel [Plavix] 75 mg PO DAILY #90 tab 11/04/18 [Rx] Hydrochlorothiazide 25 mg PO DAILY #30 tablet 11/04/18 [Rx] Nitroglycerin Sl Tabs [Nitrostat] 0.4 mg SUBLINGUAL Q5M PRN #25 tab 11/04/18 [Rx] Olmesartan [Benicar] 40 mg PO DAILY #90 tab 11/04/18 [Rx] ALPRAZolam [Xanax] 0.25 mg PO DAILY #0 11/08/18 [Rx] Metoprolol Tartrate [Lopressor] 25 mg PO BID #60 tablet 11/09/18 [Rx] hydrALAZINE HCL 50 mg PO TID #90 tablet 11/09/18 [Rx] Rivaroxaban [Xarelto] 15 mg PO DAILY@0800 #30 tab 11/20/18 [Rx] amLODIPine [Norvasc] 5 mg PO DAILY #30 tab 11/20/18 [Rx] Follow up Appointment(s)/Referral(s): Gerri Joyce MD [Primary Care Provider] - 1 Week (Office closed early, please call and follow up with Dr. Joyce within one week of discharge.) Glenna Breen MD [STAFF PHYSICIAN] - 12/14/18 9:15 am (Please keep previous appointment. Thank you. ) Patient Instructions/Handouts: Chest Pain (DC), Potassium Content of Foods List (DC), Hypomagnesemia (DC) Discharge Disposition: HOME SELF-CARE
--- NOTE | 2018-11-20 14:43 | EST ---
EXERCISE STRESS AGE: 78 SEX: F HT: 62" WT: 184 PROTOCOL: Lexiscan Cardiolite Stress Test HEART RATE REST: 56 BLOOD PRESSURE REST: 190/54 MAXIMUM HEART RATE ACHIEVED: 71 MAXIMUM BLOOD PRESSURE: 190/54 CLINICAL INFORMATION: STRESS DATA: Pretesting physical examination showed a heart rate of 56, pressure is 190/54 mmHg. Baseline EKG showed sinus mechanism, 0.4 mg of Lexiscan over 15 seconds per protocol. Max heart rate was 71 beats per minute, maximum pressure was 190/54 mmHg. Clinically, the patient did have chest discomfort which has resolved and the EKG did not show any significant ST or T-wave abnormalities concerning for ischemia. CONCLUSION: 1. Nondiagnostic electrocardiogram stress testing in response to Lexiscan. 2. Please follow up on the Cardiolite portion on separate report. MMODL / IJN: [id number] /
[2018-11-21] MEDS ORDERED: RIVAROXABAN 15 MG TAB PO SCH (08:00)
== END 2018-11-20 16:41 | disposition home or self-care (01) ==
LOC: EC 10:33 → 3SCARD 13:14
PROVIDERS: ADMIT Family Medicine; ATTEND Family Medicine
DX: I25.110 Atherosclerotic heart disease of native coronary artery with unstable angina pectoris (principal); I25.82 Chronic total occlusion of coronary artery; R20.2 Paresthesia of skin; E78.5 Hyperlipidemia, unspecified; E83.42 Hypomagnesemia; E87.6 Hypokalemia; K58.9 Irritable bowel syndrome, unspecified; F33.9 Major depressive disorder, recurrent, unspecified; G47.33 Obstructive sleep apnea (adult) (pediatric); E11.40 Type 2 diabetes mellitus with diabetic neuropathy, unspecified; L40.9 Psoriasis, unspecified; I10 Essential (primary) hypertension; I42.9 Cardiomyopathy, unspecified; I25.2 Old myocardial infarction; M19.90 Unspecified osteoarthritis, unspecified site; I48.0 Paroxysmal atrial fibrillation; R04.0 Epistaxis; D68.32 Hemorrhagic disorder due to extrinsic circulating anticoagulants; T45.515A Adverse effect of anticoagulants, initial encounter; J44.9 Chronic obstructive pulmonary disease, unspecified; K21.9 Gastro-esophageal reflux disease without esophagitis; I08.3 Combined rheumatic disorders of mitral, aortic and tricuspid valves; Z79.01 Long term (current) use of anticoagulants; Z79.02 Long term (current) use of antithrombotics/antiplatelets; Z79.82 Long term (current) use of aspirin; Z79.84 Long term (current) use of oral hypoglycemic drugs; Z79.899 Other long term (current) drug therapy; Z95.5 Presence of coronary angioplasty implant and graft; Z96.1 Presence of intraocular lens; Z98.84 Bariatric surgery status; Z90.710 Acquired absence of both cervix and uterus; Z87.891 Personal history of nicotine dependence; Z87.01 Personal history of pneumonia (recurrent); Z88.2 Allergy status to sulfonamides; Z88.8 Allergy status to other drugs, medicaments and biological substances; Z90.49 Acquired absence of other specified parts of digestive tract; Z82.49 Family history of ischemic heart disease and other diseases of the circulatory system; Z80.9 Family history of malignant neoplasm, unspecified
CPT/HCPCS: 96366 ×2; 93005 ×2; 96376; 96365; 99285; 36415; 94640 ×2; 94760; 93017; 93306; 83880; 80061; 80053; 80048; 82550; 82553; 83690; 83735; 84484; 85025; 85610; 85730 ×2; 83036; 71046; 78452; G0378 ×2; A9500; J1644 ×2; J2785

== ENCOUNTER 2019-02-10 10:10 | Day surgery (SDC) | payer MEDICARE, OTHER ==
[2019-02-08 11:14] VITALS: BMI 35.3
[~2019-02-10 10:10] MED LIST changes: +ALBUTEROL NEB (CONC) 2.5 MG/0.5 ML INHALATION ONE; +ATROPINE SULFATE 0.4 MG/ML 1 ML VIAL IM ONE; +DEXAMETHASONE SOD PHOSPHATE 10 MG/ML 1 ML VIAL IV ONE; +HYDROmorphone 0.5 MG/0.5 ML SYRINGE IVP PRN; +LACTATED RINGERS 1,000 ML IV SCH; +LIDOCAINE 1% 20 ML VIAL (10MG/ML) FOR IV START INTRADERMA PRN; +LIDOCAINE 2% (PF) 20 MG/ML 5 ML VIAL INHALATION ONE; +LIDOCAINE VISCOUS 300 MG/15 ML CUP MUCOUS MEM ONE; +MIDAZOLAM 2 MG/2 ML VIAL IV PRN; +ONDANSETRON 4 MG/2 ML VIAL IVP ONE; +SCOPOLAMINE 1.5MG/72HR PATCH TRANSDERM ONE; +SODIUM CHLORIDE 0.9% 1,000 ML IV SCH; -SODIUM CHLORIDE 0.9% 500 ML 500 ML IV SCH
[2019-02-10 10:48] VITALS: TEMP 96.6
[2019-02-10 10:59] LABS: Glucose,Whole Blood 94 mg/dL (75-99)
[2019-02-10] MEDS ORDERED: MIDAZOLAM 2 MG/2 ML VIAL ONE (11:31)
[2019-02-10] MEDS ORDERED: PROPOFOL 10 MG/ML 20 ML VIAL IV ONE (11:31)
[2019-02-10] MEDS ORDERED: fentaNYL (PF) 50 MCG/ML 2 ML AMP ONE (11:31)
[2019-02-10 12:00] VITALS: RESP 18
--- NOTE | 2019-02-10 12:35 | PCN ---
PROCEDURE NOTE PROCEDURE: Bronchoscopy, airway examination, therapeutic lavage, BAL. OPERATORS: Dr. Crabtree and Dr. De Los Santos. The procedure took place in room #1 [facility]. There was informed consent and universal timeout. PREOPERATIVE DIAGNOSIS: Severe asthma, tracheobronchomalacia. POSTOPERATIVE DIAGNOSIS: Severe asthma, tracheobronchomalacia. Susanna Montez CRNA, provided unconscious sedation, general anesthesia. DESCRIPTION OF THE PROCEDURE: After the patient was adequately sedated and being fully monitored, the bronchoscope was inserted through the right nostril. It passed through the right nasopharynx into the oropharynx. The hypopharynx was identified and topicalized. The hypopharyngeal structures appeared relatively normal including anterior commissure, true cords, false cords, arytenoids, piriform sinuses, right and left vallecula and epiglottis. The airways were crowded. The glottic opening was topicalized. Of note was the fact that there appeared to be some yeast on the vocal cords. After topicalization, the bronchoscope was pushed into the trachea. Trachea appeared relatively normal. Trachea sparkle was sharp. There was some degree of tracheomalacia. I would say mild to moderate in severity. Tracheal sparkle was sharp. Right and left mainstem were topicalized. There were some secretions noted in the trachea and they were suctioned. The right upper lobe and its 3 segments, right middle lobe and its 2 segments, right lower lobe and its 5 segments, left upper lobe proper and its 2 segments, lingula and its 2 segments and left lower lobe and its 4 segments all had similar findings of diffuse moderate bronchitis. There was airway erythema and hyperemia. There was some mucosal friability. The airways did bleed easily. There was some vascular engorgement. There were thick secretions noted throughout the airways, mostly in the lower lobes. There was no dominant mass or tumor. The bronchoscope was then wedged into the right middle lobe. We did a BAL. The patient tolerated the procedure well. Additional secretions were suctioned. The bronchoscope was withdrawn and the patient will be recovered. There was no immediate complication. MMODL / IJN: [id number] /
[2019-02-10 12:45] VITALS: BP 130/70; PULSE 56
[2019-02-10 20:45] LABS: Appearance,BF Blood Tinged; Nucleated Cells, Body Fluid 40 /uL; RBC, Body Fluid 49680 /uL
[2019-02-10 20:51] LABS: Mononuclear WBC,Body Fluid 18 %; Polynuclear WBC,Body Fluid 82 %; Total Cells Counted,Body Fluid 100
== END 2019-02-10 12:53 | disposition home or self-care (01) ==
LOC: ORWHC2ENDO 10:10
PROVIDERS: ATTEND Internal Medicine Critical Care Medicine
DX: J44.9 Chronic obstructive pulmonary disease, unspecified (principal); J98.09 Other diseases of bronchus, not elsewhere classified; I25.10 Atherosclerotic heart disease of native coronary artery without angina pectoris; I48.91 Unspecified atrial fibrillation; I38 Endocarditis, valve unspecified; G47.33 Obstructive sleep apnea (adult) (pediatric); E78.5 Hyperlipidemia, unspecified; K21.9 Gastro-esophageal reflux disease without esophagitis; I10 Essential (primary) hypertension; Z88.2 Allergy status to sulfonamides; Z79.51 Long term (current) use of inhaled steroids; Z79.82 Long term (current) use of aspirin; Z79.899 Other long term (current) drug therapy; Z79.01 Long term (current) use of anticoagulants; Z79.84 Long term (current) use of oral hypoglycemic drugs; Z79.02 Long term (current) use of antithrombotics/antiplatelets; Z95.5 Presence of coronary angioplasty implant and graft; Z98.84 Bariatric surgery status
CPT/HCPCS: 94640; 87798 ×3; 87496; 87498; 87529; 88108; 88305; 89050; 87252; 87502; 87634; 87070; 87205; 87116; 87102; 87077; 87186; 87206; 31624; J2250; J0461; J3010; J2704; J2001

== ENCOUNTER 2019-07-27 12:22 | Inpatient (IN) | payer MEDICARE, OTHER ==
[2019-07-27] MEDS ORDERED: IPRATROPIUM-ALBUTEROL 3 ML NEB INHALATION STA (12:46)
--- NOTE | 2019-07-27 12:49 | ED ---
General Adult HPI - General Chief complaint: Shortness of Breath Stated complaint: CHEST PAIN, GRISEL, HAS HEART Hx, LOW HEART RATE Time Seen by Provider: 07/27/19 12:32 Source: patient, RN notes reviewed, old records reviewed (. Records from Dr. Anamaria montez) Mode of arrival: wheelchair Limitations: no limitations - History of Present Illness Initial comments: Patient is a pleasant 79-year-old female presenting to the emergency department with complaints of dyspnea. Symptoms have presently worsened over the past week. Symptoms especially worsen with exertion. Patient has some chest pressure associated with exertion only. Symptoms are not initially worse with lying down. No leg pain or leg swelling. Patient does have history of COPD however this feels somewhat different. Patient has occasional cough, no different from normal. No fevers. Patient did see Dr. Granados prior to arrival. - Related Data Home Medications Medication Instructions Recorded Confirmed Albuterol Nebulized [Ventolin 2.5 mg INHALATION RT-QID PRN 08/17/14 02/10/19 Nebulized] Omeprazole [PriLOSEC] 20 mg PO AC-BRKFST 08/17/14 02/10/19 Sertraline [Zoloft] 50 mg PO DAILY 08/17/14 02/10/19 Calcium Citrate 250 mg PO BID 03/21/18 02/10/19 Cyanocobalamin [Vitamin B-12] 500 mcg PO DAILY 03/21/18 02/10/19 Montelukast Sodium [Singulair] 10 mg PO HS 03/21/18 02/10/19 Multivitamins, Thera [Multivitamin 1 tab PO DAILY 03/21/18 02/10/19 (formulary)] Ferrous Sulfate [Feosol] 325 mg PO DAILY 08/05/18 02/10/19 metFORMIN HCL [Glucophage] 850 mg PO BID 08/05/18 02/10/19 [place]-3 Fatty Acids/Fish Oil [Fish 1 cap PO DAILY 10/30/18 02/10/19 Oil 1,000 mg Softgel] Aspirin [Adult Low Dose Aspirin EC] 81 mg PO DAILY 01/29/19 02/10/19 Budesonide-Formot 160-4.5 Mcg 2 puff INHALATION BID 01/29/19 02/10/19 [Symbicort 160-4.5 Mcg Inhaler] Magnesium Gluconate [Magonate] 500 mg PO DAILY 01/29/19 02/10/19 hydrALAZINE HCL 100 mg PO BID 01/29/19 02/10/19 ALPRAZolam [Xanax] 0.25 mg PO BID PRN 02/08/19 02/10/19 Fluticasone/Salmeterol [Advair 1 inhalation PO BID 02/08/19 02/10/19 500-50 Diskus] Olmesartan [Benicar] 40 mg PO QAM 02/08/19 02/10/19 amLODIPine [Norvasc] 5 mg PO QAM 02/08/19 02/10/19 Previous Rx's Medication Instructions Recorded Atorvastatin [Lipitor] 80 mg PO DAILY #90 tab 11/04/18 Clopidogrel [Plavix] 75 mg PO DAILY #90 tab 11/04/18 Hydrochlorothiazide 25 mg PO DAILY #30 tablet 11/04/18 Nitroglycerin Sl Tabs [Nitrostat] 0.4 mg SUBLINGUAL Q5M PRN #25 tab 11/04/18 Metoprolol Tartrate [Lopressor] 25 mg PO BID #60 tablet 11/09/18 Allergies Allergy/AdvReac Type Severity Reaction Status Date / Time Sulfa (Sulfonamide Allergy Unknown Verified 07/27/19 12:25 Antibiotics) Childhood heparin AdvReac bloody nose Verified 07/27/19 12:25 Review of Systems ROS Statement: Those systems with pertinent positive or pertinent negative responses have been documented in the HPI. ROS Other: All systems not noted in ROS Statement are negative. Constitutional: Denies: fever, chills Eyes: Denies: eye pain ENT: Denies: ear pain Respiratory: Reports: dyspnea Cardiovascular: Reports: as per HPI, chest pain Endocrine: Reports: fatigue Gastrointestinal: Denies: abdominal pain Genitourinary: Denies: dysuria Musculoskeletal: Denies: back pain Skin: Denies: rash Neurological: Denies: weakness Past Medical History Past Medical History: Asthma, Coronary Artery Disease (CAD), COPD, Diabetes Mellitus, GERD/Reflux, Hyperlipidemia, Hypertension, Myocardial Infarction (NV), Osteoarthritis (OA), Pneumonia, Skin Disorder, Sleep Apnea/CPAP/BIPAP Additional Past Medical History / Comment(s): HAS HAD A COUGH FOR PAST 5 WEEKS- HAD ANTIBIOTCS AND PREDNISONE WITH NO RESULTS. Pt recently admitted to [facility] on 11/06/18 with new Afib RVR/junctional rhythm that resolved, R femoral AV fistula. Other hx: ABBEY-cannot tolerate Cpap, silent NV per pt, cardiomyopathy, circumflex occluded, recent stenting RCA, mitral regurg, pt states she will need a pacemaker and a shunt for her A/V fistula once she is able to be taken off of plavix, NIDDM type II, neuropathy bilateral feet, IBS, H pylori and pt and rogelio states she was diagnosed with lymphoma (stomach) and that it was treated with antibiotics, psoriasis. 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 Past Anesthesia/Blood Transfusion Reactions: No Reported Reaction Additional Past Anesthesia/Blood Transfusion Reaction / Comment(s): Pt has received blood in past without reaction. Date of Last Stent Placement:: 11/03/18 Past Psychological History: Anxiety, Depression Smoking Status: Former smoker Past Alcohol Use History: None Reported Past Drug Use History: None Reported - Past Family History Brother(s) Family Medical History: Cancer Additional Family Medical History / Comment(s): 5 BROTHER'S Father Family Medical History: Myocardial Infarction (NV) Additional Family Medical History / Comment(s): Father of a NV at the age of 44yrs. Mother Family Medical History: No Reported History Additional Family Medical History / Comment(s): Mother was healthy General Exam Limitations: no limitations General appearance: alert, in no apparent distress Head exam: Present: normocephalic Eye exam: Present: normal appearance, PERRL ENT exam: Present: normal oropharynx Neck exam: Present: normal inspection Respiratory exam: Present: decreased breath sounds Cardiovascular Exam: Present: bradycardia Expanded Peripheral pulses: 2+: Radial (R), Radial (L), Dorsalis Pedis (R), Dorsalis Pedis (L) GI/Abdominal exam: Present: soft. Absent: tenderness Extremities exam: Present: normal inspection. Absent: pedal edema, calf tenderness Neurological exam: Present: alert Psychiatric exam: Present: normal affect, normal mood Skin exam: Present: normal color Course Vital Signs 07/27/19 07/27/19 07/27/19 12:25 12:51 12:59 Temperature 97.7 F Pulse Rate 42 L 40 L 39 L Respiratory 18 16 16 Rate Blood Pressure 153/55 O2 Sat by Pulse 97 Oximetry 07/27/19 13:11 Temperature Pulse Rate 42 L Respiratory 16 Rate Blood Pressure 164/59 O2 Sat by Pulse 98 Oximetry EKG Findings - EKG Comments: EKG Findings:: Social bradycardia with rate of 42. QRS 114. QT 728. QTC 607. Normal axis. Normal QRS. No acute ST change. Medical Decision Making - Medical Decision Making Patient reevaluated and resting comfortably in bed. Heart rate 749. Patient and family updated on results and plan. Dr. Piper has been paged for admission, covering for Dr. Joyce. Cardiology will be placed on consult - Lab Data Result diagrams: 07/27/19 12:45 07/27/19 12:45 Lab Results 07/27/19 07/27/19 07/27/19 Range/Units 12:45 12:45 12:45 WBC 8.2 (3.8-10.6) k/uL RBC 3.70 L (3.80-5.40) m/uL Hgb 8.8 L (11.4-16.0) gm/dL Hct 28.6 L (34.0-46.0) % MCV 77.3 L (80.0-100.0) fL MCH 23.7 L (25.0-35.0) pg MCHC 30.7 L (31.0-37.0) g/dL RDW 14.6 (11.5-15.5) % Plt Count 244 (150-450) k/uL Neutrophils % 67 % Lymphocytes % 22 % Monocytes % 7 % Eosinophils % 1 % Basophils % 1 % Neutrophils # 5.5 (1.3-7.7) k/uL Lymphocytes # 1.8 (1.0-4.8) k/uL Monocytes # 0.6 (0-1.0) k/uL Eosinophils # 0.1 (0-0.7) k/uL Basophils # 0.1 (0-0.2) k/uL Hypochromasia Marked PT 12.7 H (9.0-12.0) sec INR 1.2 H (<1.2) APTT 22.5 (22.0-30.0) sec Sodium 137 (137-145) mmol/L Potassium 4.6 (3.5-5.1) mmol/L Chloride 104 (98-107) mmol/L Carbon Dioxide 20 L (22-30) mmol/L Anion Gap 13 mmol/L BUN 17 (7-17) mg/dL Creatinine 0.92 (0.52-1.04) mg/dL Est GFR (CKD-EPI)AfAm 68 (>60 ml/min/1.73 sqM) Est GFR (CKD-EPI)NonAf 59 (>60 ml/min/1.73 sqM) Glucose 124 H (74-99) mg/dL Calcium 9.2 (8.4-10.2) mg/dL Magnesium 2.2 (1.6-2.3) mg/dL Total Bilirubin 0.6 (0.2-1.3) mg/dL AST 39 H (14-36) U/L ALT 39 (9-52) U/L Alkaline Phosphatase 70 (38-126) U/L Troponin I (0.000-0.034) ng/mL NT-Pro-B Natriuret Pep pg/mL Total Protein 7.1 (6.3-8.2) g/dL Albumin 4.1 (3.5-5.0) g/dL TSH 0.511 (0.465-4.680) mIU/L Free T4 1.50 (0.78-2.19) ng/dL Free T3 pg/mL 4.4 (2.8-5.3) pg/ml 07/27/19 07/27/19 Range/Units 12:45 12:45 WBC (3.8-10.6) k/uL RBC (3.80-5.40) m/uL Hgb (11.4-16.0) gm/dL Hct (34.0-46.0) % MCV (80.0-100.0) fL MCH (25.0-35.0) pg MCHC (31.0-37.0) g/dL RDW (11.5-15.5) % Plt Count (150-450) k/uL Neutrophils % % Lymphocytes % % Monocytes % % Eosinophils % % Basophils % % Neutrophils # (1.3-7.7) k/uL Lymphocytes # (1.0-4.8) k/uL Monocytes # (0-1.0) k/uL Eosinophils # (0-0.7) k/uL Basophils # (0-0.2) k/uL Hypochromasia PT (9.0-12.0) sec INR (<1.2) APTT (22.0-30.0) sec Sodium (137-145) mmol/L Potassium (3.5-5.1) mmol/L Chloride (98-107) mmol/L Carbon Dioxide (22-30) mmol/L Anion Gap mmol/L BUN (7-17) mg/dL Creatinine (0.52-1.04) mg/dL Est GFR (CKD-EPI)AfAm (>60 ml/min/1.73 sqM) Est GFR (CKD-EPI)NonAf (>60 ml/min/1.73 sqM) Glucose (74-99) mg/dL Calcium (8.4-10.2) mg/dL Magnesium (1.6-2.3) mg/dL Total Bilirubin (0.2-1.3) mg/dL AST (14-36) U/L ALT (9-52) U/L Alkaline Phosphatase (38-126) U/L Troponin I <0.012 (0.000-0.034) ng/mL NT-Pro-B Natriuret Pep 5770 pg/mL Total Protein (6.3-8.2) g/dL Albumin (3.5-5.0) g/dL TSH (0.465-4.680) mIU/L Free T4 (0.78-2.19) ng/dL Free T3 pg/mL (2.8-5.3) pg/ml - Radiology Data Radiology results: image reviewed (Chest x-ray: Correlate for CHF or early pneumonia) Disposition Clinical Impression: Congestive heart failure, Bradycardia, Anemia Disposition: ADMITTED IP TO THIS [facility] Condition: Serious Is patient prescribed a controlled substance at d/c from ED?: No Referrals: Gerri Joyce MD [Primary Care Provider] - 1-2 days Decision Time: 14:01
[2019-07-27 13:03] LABS: Basophils # (A) 0.1 k/uL (0-0.2); Basophils % (A) 1 %; Eosinophils # (A) 0.1 k/uL (0-0.7); Eosinophils % (A) 1 %; HCT 28.6 % (34.0-46.0); HGB 8.8 gm/dL (11.4-16.0); Hypochromasia Marked; Lymphocytes # (A) 1.8 k/uL (1.0-4.8); Lymphocytes % (A) 22 %; MCH 23.7 pg (25.0-35.0); MCHC 30.7 g/dL (31.0-37.0); MCV 77.3 fL (80.0-100.0); Mean Platelet Volume 7.1; Monocytes # (A) 0.6 k/uL (0-1.0); Monocytes % (A) 7 %; Neutrophils # (A) 5.5 k/uL (1.3-7.7); Neutrophils % (A) 67 %; Platelet Count 244 k/uL (150-450); RDW 14.6 % (11.5-15.5); WBC 8.2 k/uL (3.8-10.6)
[2019-07-27 13:18] LABS: INR 1.2 (<1.2); Partial Thromboplastin Time 22.5 sec (22.0-30.0); Prothrombin Time 12.7 sec (9.0-12.0)
[2019-07-27 13:22] LABS: Albumin 4.1 g/dL (3.5-5.0); Calcium 9.2 mg/dL (8.4-10.2); Magnesium 2.2 mg/dL (1.6-2.3); Potassium 4.6 mmol/L (3.5-5.1); Total Bilirubin 0.6 mg/dL (0.2-1.3); Total Protein 7.1 g/dL (6.3-8.2)
--- NOTE | 2019-07-27 13:33 | XR ---
EXAMINATION TYPE: XR chest 2V DATE OF EXAM: 07/27/2019 COMPARISON: 03/08/2019 TECHNIQUE: PA and lateral views submitted. HISTORY: Chest pain FINDINGS: No pneumothorax. Heart is enlarged and is atherosclerotic change of the aorta and interstitial patter n. Diffuse osteopenia and arthropathy shoulders. Degenerative changes spine. Tiny bilateral pleural e ffusions. IMPRESSION: 1. Correlate for mild CHF otherwise consider early pneumonia..
[2019-07-27 13:39] LABS: T4, Free (Free Thyroxine) 1.5 ng/dL (0.78-2.19)
[2019-07-27] MEDS: NITROGLYCERIN OINT 1 INCH/GM PACKET TOPICAL SCH ×3 (14:37→21:10)
[2019-07-27] MEDS: PANTOPRAZOLE 40 MG/10 ML VIAL IVP SCH (14:37)
[2019-07-27] MEDS: FUROSEMIDE 10 MG/ML 4 ML VIAL IV SCH (14:37)
[2019-07-27] MEDS ORDERED: INFLUENZA VACCINE (6 MOS+) 60 MCG/0.5 ML SYRINGE IM ONE (15:39)
[2019-07-27] MEDS ORDERED: ALBUTEROL NEBULIZED 2.5 MG/3 ML INHALATION PRN (15:54)
[2019-07-27] MEDS ORDERED: NITROGLYCERIN SL TABS 0.4 MG TAB SUBLINGUAL PRN (15:54)
--- NOTE | 2019-07-27 16:25 | P.CRDCN ---
History of Present Illness Consult date: 07/27/19 Requesting physician: Pierre Roy Consult reason: shortness of breath Chief complaint: Shortness of breath and weakness History of present illness: This is a pleasant 78-year-old female with history of severe mitral regurgitation for which the patient underwent a cardiac catheterization in October of this year, and was found to have critical stenosis in the LAD with no significant mitral regurgitation. Subsequently patient underwent angioplasty and stenting of the right coronary artery. Patient also has history of hyperlipidemia, hypertension, atrial fibrillation. She had a subsequent admission to the hospital after her stent placement with atrial fibrillation with rapid ventricular response. She presents to the hospital on this occasion with symptoms of progressively worsening shortness of breath, mostly exertional in nature, severe weakness and tiredness. Patient used to follow with Dr. Atwood in the office, she now follows with Dr. Breen. Her chest x-ray on admission here showed mild CHF. EKG on arrival here showed a junctional bradycardia with nonspecific ST-T wave changes in the inferior and anterior leads. According to the patient, she has been told in the past that she may need a pacemaker down the road. Blood pressure 164/50, 208/60, heart rate in the 40s. White blood cell count 8.2, hemoglobin 8.8, platelet count 244. Sodium 137, potassium 4.6, BUN 17 and creatinine 0.9. Troponin 0.012, TSH is normal, BNP 5770. Hemoglobin in October of this year was 12.6. Patient denies having any black stool or blood in her stool, but she states she never to see the color. She does have history of H. pylori several years ago. At the time of my examination this afternoon, she is lying comfortably in bed, no complaints. Past Medical History Past Medical History: Atrial Fibrillation, Asthma, Coronary Artery Disease (CAD), COPD, Diabetes Mellitus, GERD/Reflux, Hyperlipidemia, Hypertension, My ocardial Infarction (AL), Osteoarthritis (OA), Pneumonia, Skin Disorder, Sleep Apnea/CPAP/BIPAP Additional Past Medical History / Comment(s): Afib RVR/junctional rhythm that r esolved, R femoral AV fistula after cardiac cath that resolved, ABBEY-cannot tolerate Cpap, home oxygen at 2L/NC at HS only, single R upper lobe pulmonary nodule being monitored, silent AL per pt, cardiomyopathy, circumflex occluded, mitral regurg, tricuspid regurg, NIDDM type II, neuropathy bilateral feet, 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 Last Myocardial Infarction Date:: unknown-"silent" History of Any Multi-Drug Resistant Organisms: None Reported Past Surgical History: Bariatric Surgery, Breast Surgery, Cholecystectomy, Heart Catheterization With Stent, Hysterectomy Additional Past Surgical History / Comment(s): 1988 Cardiac cath, 11/06/18 PCI with stents to RCA, lap banding since removed then gastric sleeve, EGD/colon oscopies, R benign breast biopsy, R mastoid process osteomylitis with surgery, brain surgery with 2 titanium screws d/t CSF leak from R ear, bilateral cataract removals/lens implants, epidural pain injections, sinus surgery. Past Anesthesia/Blood Transfusion Reactions: No Reported Reaction Additional Past Anesthesia/Blood Transfusion Reaction / Comment(s): Pt has received blood in past without reaction. Date of Last Stent Placement:: 11/03/18 Smoking Status: Former smoker - Past Family History Brother(s) Family Medical History: Cancer Additional Family Medical History / Comment(s): 5 BROTHER'S Father Family Medical History: Myocardial Infarction (AL) Additional Family Medical History / Comment(s): Father of a AL at the age of 44yrs. Mother Family Medical History: No Reported History Additional Family Medical History / Comment(s): Mother was healthy Medications and Allergies Home Medications Medication Instructions Recorded Confirmed Type Sertraline [Zoloft] 50 mg PO DAILY 08/17/14 07/27/19 History Cyanocobalamin [Vitamin B-12] 500 mcg PO DAILY 03/21/18 07/27/19 History Montelukast Sodium [Singulair] 10 mg PO HS 03/21/18 07/27/19 History Multivitamins, Thera [Multivitamin 1 tab PO DAILY 03/21/18 07/27/19 History (formulary)] Clopidogrel [Plavix] 75 mg PO DAILY #90 tab 11/04/18 07/27/19 Rx Nitroglycerin Sl Tabs [Nitrostat] 0.4 mg SUBLINGUAL Q5M PRN #25 tab 11/04/18 07/27/19 Rx Metoprolol Tartrate [Lopressor] 25 mg PO BID #60 tablet 11/09/18 07/27/19 Rx Magnesium Gluconate [Magonate] 500 mg PO DAILY 01/29/19 07/27/19 History ALPRAZolam [Xanax] 0.25 mg PO BID PRN 02/08/19 07/27/19 History Albuterol Sulfate [Ventolin HFA] 1 - 2 puff INHALATION RT-Q6H PRN 07/27/19 07/27/19 History Atorvastatin [Lipitor] 80 mg PO HS 07/27/19 07/27/19 History Budesonide [Pulmicort] 0.5 mg INHALATION RT-BID 07/27/19 07/27/19 History Cholecalciferol (Vitamin D3) 2,000 unit PO DAILY 07/27/19 07/27/19 History [Vitamin D3] Furosemide [Lasix] 20 mg PO MOWEFR 07/27/19 07/27/19 History Olmesartan Medoxomil [Benicar] 40 mg PO DAILY 07/27/19 07/27/19 History hydrALAZINE HCL [Apresoline] 100 mg PO TID 07/27/19 07/27/19 History Allergies Allergy/AdvReac Type Severity Reaction Status Date / Time Sulfa (Sulfonamide Allergy Unknown Verified 07/27/19 14:01 Antibiotics) Childhood heparin AdvReac bloody nose Verified 07/27/19 14:01 Physical Exam Vitals: Vital Signs Temp Pulse Resp BP Pulse Ox 07/27/19 14:56 97.7 F 48 L 16 208/62 96 07/27/19 13:11 42 L 16 164/59 98 07/27/19 12:59 39 L 16 07/27/19 12:51 40 L 16 07/27/19 12:25 97.7 F 42 L 18 153/55 97 Intake and Output 07/27/19 07/27/19 07/27/19 06:59 14:59 22:59 Other: Weight 90.718 kg PHYSICAL EXAMINATION: GENERAL: 78-year-old female in no acute distress at the time of my examination HEENT: Head is atraumatic, normocephalic. Pupils equal, round. Sclera anicter ic. Conjunctiva are clear. Mucous membranes of the mouth are moist. Neck is supple. There is no elevated jugular venous pressure. No carotid bruit is heard. HEART EXAMINATION: Heart S1 S2 1 systolic murmur is heard at the apex. CHEST EXAMINATION: Lungs are clear to auscultation with mild diminished air entry to the bases . No chest wall tenderness is noted on palpation or with deep breathing. ABDOMEN: Soft, nontender. Bowel sounds are heard. No organomegaly noted. EXTREMITIES: 2+ peripheral pulses with no evidence of peripheral edema and no calf tenderness noted.loud bruit heard at right groin NEUROLOGIC patient is awake, alert and oriented 3 . . Results 07/27/19 12:45 07/27/19 12:45 Cardiac Enzymes 07/27/19 07/27/19 Range/Units 12:45 12:45 AST 39 H (14-36) U/L Troponin I <0.012 (0.000-0.034) ng/mL Coagulation 07/27/19 Range/Units 12:45 PT 12.7 H (9.0-12.0) sec APTT 22.5 (22.0-30.0) sec CBC 07/27/19 Range/Units 12:45 WBC 8.2 (3.8-10.6) k/uL RBC 3.70 L (3.80-5.40) m/uL Hgb 8.8 L (11.4-16.0) gm/dL Hct 28.6 L (34.0-46.0) % Plt Count 244 (150-450) k/uL Comprehensive Metabolic Panel 07/27/19 Range/Units 12:45 Sodium 137 (137-145) mmol/L Potassium 4.6 (3.5-5.1) mmol/L Chloride 104 (98-107) mmol/L Carbon Dioxide 20 L (22-30) mmol/L BUN 17 (7-17) mg/dL Creatinine 0.92 (0.52-1.04) mg/dL Glucose 124 H (74-99) mg/dL Calcium 9.2 (8.4-10.2) mg/dL AST 39 H (14-36) U/L ALT 39 (9-52) U/L Alkaline Phosphatase 70 (38-126) U/L Total Protein 7.1 (6.3-8.2) g/dL Albumin 4.1 (3.5-5.0) g/dL Current Medications Generic Name Dose Route Start Last Admin Trade Name Freq PRN Reason Stop Dose Admin Albuterol Sulfate 2.5 mg 07/27/19 15:54 Ventolin Nebulized INHALATION RT-Q6H PRN Shortness Of Breath Alprazolam 0.25 mg 07/27/19 15:54 Xanax PO BID PRN Anxiety Atorvastatin Calcium 80 mg 07/27/19 21:00 Lipitor PO HS [facility] Budesonide 0.5 mg 07/27/19 20:00 Pulmicort INHALATION RT-BID [facility] Cholecalciferol 2,000 unit 07/28/19 09:00 Vitamin D3 (25 Mcg = 1000 Iu) PO DAILY [facility] Clopidogrel Bisulfate 75 mg 07/28/19 09:00 Plavix PO DAILY [facility] Cyanocobalamin 500 mcg 07/28/19 09:00 Vitamin B-12 PO DAILY [facility] Furosemide 40 mg 07/27/19 15:00 07/27/19 14:37 Lasix IV 40 mg Q8HR [facility] Administration Hydralazine HCl 100 mg 07/27/19 16:00 Apresoline PO TID [facility] Montelukast Sodium 10 mg 07/27/19 21:00 Singulair PO HS [facility] Nitroglycerin 1 inch 07/27/19 14:15 07/27/19 14:37 Nitro-Bid Oint TOPICAL 1 inch QID [facility] Administration Nitroglycerin 0.4 mg 07/27/19 15:54 Nitrostat SUBLINGUAL Q5M PRN Chest Pain Pantoprazole Sodium 40 mg 07/27/19 14:15 07/27/19 14:37 Protonix IVP 40 mg DAILY [facility] Administration Sertraline HCl 50 mg 07/28/19 09:00 Zoloft PO DAILY [facility] Sodium Chloride 10 ml 07/27/19 21:00 Saline Flush IV BID [facility] Intake and Output 07/27/19 07/27/19 07/27/19 06:59 14:59 22:59 Other: Weight 90.718 kg Patient Weight 07/28/19 06:59 Weight 90.718 kg 07/27/19 12:45 07/27/19 12:45 EKG Interpretations (text) EKG shows a junctional bradycardia with nonspecific ST-T wave changes Assessment and Plan Plan: Assessment and plan #1 symptoms of progressively worsening exertional shortness of breath with associated weakness and tiredness, could be secondary to anemia and bradycardia. #2 anemia, hemoglobin 8.8, hemoglobin in October of this year in the 09-10 ran ge #3 junctional rhythm with a heart rate in the 40s, on beta amirah at home #4 paroxysmal atrial fibrillation, not able to be on anticoagulation because of the significant bruising, was recommended to be evaluated for possible watchman device #5 hypertension, accelerated #6 hyperlipidemia #7 CAD with stenting of the right coronary artery in October of this year, currently on baby aspirin and Plavix #8 history of H. pylori #9 obstructive sleep apnea #10 [id number] diabetes Plan We'll obtain an repeat echocardiogram with Doppler study, hold the beta amirah at this time and continue to monitor heart rate. Continue Lipitor 80, Plavix 75 mg daily, Lasix 40 mg IV, discontinue Nitropaste, start the patient on an SRINIVAS inhibitor, we will also initiate some Norvasc for more optimal blood pressure control. Recommend GI consultation to evaluate the patient's anemia. Continue to monitor patient's rhythm. She has been told in the past that she will require a pacemaker at some point. We will continue to monitor the heart rate off of the beta amirah, further recommendations to follow. DNP note has been reviewed, I agree with a documented findings and plan of care. Patient was seen and examined.
[2019-07-27] MEDS ORDERED: amLODIPine 5 MG TAB PO SCH (16:30)
[2019-07-27 16:33] LABS: Glucose,Whole Blood 103 mg/dL (75-99)
[2019-07-27] MEDS: hydrALAZINE HCL 50 MG TAB PO SCH ×2 (16:45→21:09)
[2019-07-27] MEDS ORDERED: amLODIPine 5 MG TAB PO STA (18:02)
[2019-07-27] MEDS ORDERED: ACETAMINOPHEN TAB 325 MG TAB PO PRN (19:10)
[2019-07-27] MEDS: BUDESONIDE 0.5 MG/2 ML NEBU INHALATION SCH (20:18)
[2019-07-27 20:49] LABS: Glucose,Whole Blood 117 mg/dL (75-99)
[2019-07-27] MEDS: ATORVASTATIN 80 MG TAB PO SCH (21:09)
[2019-07-27] MEDS: MONTELUKAST 10 MG TAB PO SCH (21:09)
[2019-07-28] MEDS: FUROSEMIDE 10 MG/ML 4 ML VIAL IV SCH ×4 (00:24→23:50)
[2019-07-28 01:29] LABS: Basophils # (A) 0.1 k/uL (0-0.2); Basophils % (A) 1 %; Eosinophils # (A) 0.2 k/uL (0-0.7); Eosinophils % (A) 2 %; HCT 26.6 % (34.0-46.0); HGB 8.1 gm/dL (11.4-16.0); Hypochromasia Marked; Lymphocytes # (A) 1.7 k/uL (1.0-4.8); Lymphocytes % (A) 24 %; MCH 23.5 pg (25.0-35.0); MCHC 30.7 g/dL (31.0-37.0); MCV 76.6 fL (80.0-100.0); Mean Platelet Volume 6.9; Monocytes # (A) 0.6 k/uL (0-1.0); Monocytes % (A) 8 %; Neutrophils # (A) 4.3 k/uL (1.3-7.7); Neutrophils % (A) 61 %; Platelet Count 241 k/uL (150-450); RBC 3.47 m/uL (3.80-5.40); RDW 14.5 % (11.5-15.5)
[2019-07-28 06:12] LABS: Glucose,Whole Blood 105 mg/dL (75-99)
[2019-07-28 06:46] LABS: Basophils % (A) 1 %; Eosinophils # (A) 0.2 k/uL (0-0.7); Eosinophils % (A) 3 %; HCT 25.4 % (34.0-46.0); HGB 7.9 gm/dL (11.4-16.0); Hypochromasia Moderate; Lymphocytes # (A) 1.2 k/uL (1.0-4.8); Lymphocytes % (A) 18 %; MCH 23.5 pg (25.0-35.0); MCHC 31.1 g/dL (31.0-37.0); MCV 75.6 fL (80.0-100.0); Mean Platelet Volume 6.5; Microcytosis Slight; Monocytes # (A) 0.5 k/uL (0-1.0); Monocytes % (A) 7 %; Neutrophils # (A) 4.3 k/uL (1.3-7.7); Neutrophils % (A) 68 %; Platelet Count 215 k/uL (150-450); RBC 3.36 m/uL (3.80-5.40); RDW 14.9 % (11.5-15.5); WBC 6.4 k/uL (3.8-10.6)
[2019-07-28] MEDS: BUDESONIDE 0.5 MG/2 ML NEBU INHALATION SCH ×2 (07:35→19:21)
[2019-07-28] MEDS ORDERED: CLOPIDOGREL 75 MG TAB PO SCH (09:00)
[2019-07-28] MEDS: LOSARTAN 50 MG TAB PO SCH (10:09)
[2019-07-28] MEDS: CHOLECALCIFEROL 1,000 UNIT TAB PO SCH (10:09)
[2019-07-28] MEDS: SERTRALINE 50 MG TAB PO SCH (10:10)
[2019-07-28] MEDS: hydrALAZINE HCL 50 MG TAB PO SCH ×3 (10:10→21:24)
[2019-07-28] MEDS: NITROGLYCERIN OINT 1 INCH/GM PACKET TOPICAL SCH (10:11)
[2019-07-28] MEDS: CYANOCOBALAMIN 500 MCG TAB PO SCH (10:11)
[2019-07-28] MEDS: amLODIPine 10 MG TAB PO SCH (10:11)
[2019-07-28] MEDS: PANTOPRAZOLE 40 MG/10 ML VIAL IVP SCH (10:11)
[2019-07-28] MEDS: ALPRAZolam 0.25 MG TAB PO PRN (10:36)
--- NOTE | 2019-07-28 10:42 | P.PN ---
Subjective Progress Note Date: 07/28/19 This is a pleasant 78-year-old female with history of severe mitral regurgitation for which the patient underwent a cardiac catheterization in October of this year, and was found to have critical stenosis in the LAD with no significant mitral regurgitation. Subsequently patient underwent angioplasty and stenting of the right coronary artery. Patient also has history of hyperlipidemia, hypertension, atrial fibrillation. She had a subsequent admission to the hospital after her stent placement with atrial fibrillation with rapid ventricular response. She presents to the hospital on this occasion with symptoms of progressively worsening shortness of breath, mostly exertional in nature, severe weakness and tiredness. Patient used to follow with Dr. Atwood in the office, she now follows with Dr. Breen. Her chest x-ray on admission here showed mild CHF. EKG on arrival here showed a junctional bradycardia with nonspecific ST-T wave changes in the inferior and anterior lead s. According to the patient, she has been told in the past that she may need a pacemaker down the road. Blood pressure 164/50, 208/60, heart rate in the 40s. White blood cell count 8.2, hemoglobin 8.8, platelet count 244. Sodium 137, potassium 4.6, BUN 17 and creatinine 0.9. Troponin 0.012, TSH is normal, BNP 5770. Hemoglobin in October of this year was 12.6. Patient denies having any black stool or blood in her stool, but she states she never to see the color. She does have history of H. pylori several years ago. At the time of my examination this afternoon, she is lying comfortably in bed, no complaints. 07/28/2019 Patient seen and examined this morning, continues to feel short of breath. Hemoglobin down to 7.9 today. She has diuresing on the IV Lasix, her weight is down significantly. Echocardiogram with Doppler study was performed yesterday and the results are yet pending. Blood pressure 177/70 in the left arm, 193/70 in the right arm, 96% on 4 L of oxygen, heart rate in the 50s. White blood cell count 6.4, hemoglobin 7.9, platelet count 215. We will request a BMP today and daily. Objective - Vital Signs Vital signs: Vital Signs Temp 98.3 F 07/28/19 04:00 Pulse 60 07/28/19 07:43 Resp 18 07/28/19 04:00 BP 193/70 07/28/19 04:00 Pulse Ox 97 07/28/19 07:35 Intake & Output 07/27/19 07/28/19 07/28/19 18:59 06:59 18:59 Intake Total 360 Balance 360 Weight 90.718 kg 85.2 kg Intake: Oral 360 Other: Voiding Method Toilet # Voids 3 - Exam PHYSICAL EXAMINATION: GENERAL: 78-year-old female in no acute distress at the time of my examination HEENT: Head is atraumatic, normocephalic. Pupils equal, round. Sclera anicteric. Conjunctiva are clear. Mucous membranes of the mouth are moist. Neck is supple. There is no elevated jugular venous pressure. No carotid bruit is heard. HEART EXAMINATION: Heart S1 S2 1 systolic murmur is heard at the apex. CHEST EXAMINATION: Lungs are clear to auscultation with mild diminished air entry to the bases . No chest wall tenderness is noted on palpation or with deep breathing. ABDOMEN: Soft, nontender. Bowel sounds are heard. No organomegaly noted. EXTREMITIES: 2+ peripheral pulses with no evidence of peripheral edema and no calf tenderness noted.loud bruit heard at right groin NEUROLOGIC patient is awake, alert and oriented 3 . - Labs CBC & Chem 7: 07/28/19 06:26 07/27/19 12:45 Labs: Abnormal Lab Results - Last 24 Hours (Table) 07/27/19 07/27/19 07/27/19 Range/Units 12:45 12:45 12:45 RBC 3.70 L (3.80-5.40) m/uL Hgb 8.8 L (11.4-16.0) gm/dL Hct 28.6 L (34.0-46.0) % MCV 77.3 L (80.0-100.0) fL MCH 23.7 L (25.0-35.0) pg MCHC 30.7 L (31.0-37.0) g/dL PT 12.7 H (9.0-12.0) sec INR 1.2 H (<1.2) Carbon Dioxide 20 L (22-30) mmol/L Glucose 124 H (74-99) mg/dL POC Glucose (mg/dL) (75-99) mg/dL AST 39 H (14-36) U/L 07/27/19 07/27/19 07/28/19 Range/Units 16:16 20:48 00:57 RBC 3.47 L (3.80-5.40) m/uL Hgb 8.1 L (11.4-16.0) gm/dL Hct 26.6 L (34.0-46.0) % MCV 76.6 L (80.0-100.0) fL MCH 23.5 L (25.0-35.0) pg MCHC 30.7 L (31.0-37.0) g/dL PT (9.0-12.0) sec INR (<1.2) Carbon Dioxide (22-30) mmol/L Glucose (74-99) mg/dL POC Glucose (mg/dL) 103 H 117 H (75-99) mg/dL AST (14-36) U/L 07/28/19 07/28/19 Range/Units 06:11 06:26 RBC 3.36 L (3.80-5.40) m/uL Hgb 7.9 L (11.4-16.0) gm/dL Hct 25.4 L (34.0-46.0) % MCV 75.6 L (80.0-100.0) fL MCH 23.5 L (25.0-35.0) pg MCHC (31.0-37.0) g/dL PT (9.0-12.0) sec INR (<1.2) Carbon Dioxide (22-30) mmol/L Glucose (74-99) mg/dL POC Glucose (mg/dL) 105 H (75-99) mg/dL AST (14-36) U/L Assessment and Plan Plan: Assessment and plan #1 symptoms of progressively worsening exertional shortness of breath with associated weakness and tiredness, could be secondary to anemia and bradycardia. #2 anemia, hemoglobin 8.8, hemoglobin in October of this year in the 12-13 range #3 junctional rhythm with a heart rate in the 40s, on beta amirah at home #4 paroxysmal atrial fibrillation, not able to be on anticoagulation because of the significant bruising, was recommended to be evaluated for possible watchman device #5 hypertension, accelerated #6 hyperlipidemia #7 CAD with stenting of the right coronary artery in October of this year, currently on baby aspirin and Plavix #8 history of H. pylori #9 obstructive sleep apnea #10 [id number] diabetes Plan Echocardiogram with Doppler study remains pending. We will increase the dose of Norvasc to 10 mg daily for more optimal blood pressure control. Heart rate 53- 60. Continue IV Lasix. DNP note has been reviewed, I agree with a documented findings and plan of care. Patient was seen and examined.
[2019-07-28 10:48] LABS: Calcium 8.8 mg/dL (8.4-10.2); Potassium 3.5 mmol/L (3.5-5.1)
--- NOTE | 2019-07-28 11:17 | ECHOF ---
Referral Reason:Heart Failure MEASUREMENTS -------- HEIGHT: 157.5 cm WEIGHT: 90.7 kg BP: RVIDd: 4.7 cm (< 3.3) IVSd: 1.1 cm (0.6 - 1.1) LVIDd: 4.6 cm (3.9 - 5.3) LVPWd: 1.1 cm (0.6 - 1.1) IVSs: 1.6 cm LVIDs: 3.7 cm LVPWs: 1.5 cm LA Diam: 5.2 cm (2.7 - 3.8) LAESV Index (A-L): 57.80 ml/m Ao Diam: 2.4 cm (2.0 - 3.7) AV Cusp: 1.6 cm (1.5 - 2.6) LA Diam: 4.7 cm (2.7 - 3.8) MV EXCURSION: 17.007 mm (> 18.000) MV EF SLOPE: 75 mm/s (70 - 150) EPSS: 0.3 cm MV E Rito: 1.24 m/s MV DecT: 139 ms MV A Rito: 0.04 m/s MV E/A Ratio: 27.99 RAP: 5.00 mmHg RVSP: 94.66 mmHg FINDINGS -------- Undetermined rhythm. This was a technically good study. The left ventricular size is normal. Left ventricular wall thickness is normal. Overall left vent ricular systolic function is low-normal with, an EF between 50 - 55 %. The right ventricle is severely enlarged. The left atrium is markedly dilated. LA is severely dilated >40 ml/m2 The right atrial size is normal. There is mild aortic valve sclerosis. There is no evidence of aortic regurgitation. Mild mitral annular calcification present. Moderate mitral regurgitation is present. Severe tricuspid regurgitation present. There is severe pulmonary hypertension. The right ventric ular systolic pressure, as measured by Doppler, is 94.66mmHg. There is no pulmonic regurgitation present. The aortic root size is normal. There is no pericardial effusion. CONCLUSIONS -------- 1. Undetermined rhythm. 2. This was a technically good study. 3. The left ventricular size is normal. 4. Left ventricular wall thickness is normal. 5. Overall left ventricular systolic function is low-normal with, an EF between 50 - 55 %. 6. The right ventricle is severely enlarged. 7. The left atrium is markedly dilated. 8. LA is severely dilated >40 ml/m2 9. The right atrial size is normal. 10. There is mild aortic valve sclerosis. 11. Mild mitral annular calcification present. 12. Moderate mitral regurgitation is present. 13. Severe tricuspid regurgitation present. 14. There is severe pulmonary hypertension. 15. The right ventricular systolic pressure, as measured by Doppler, is 94.66mmHg. 16. There is no pulmonic regurgitation present. 17. The aortic root size is normal. 18. There is no pericardial effusion. MAGAZINE PUBLISHER: Tammi Wise RDCS
[2019-07-28 11:49] LABS: Glucose,Whole Blood 119 mg/dL (75-99)
[2019-07-28 14:35] VITALS: BMI 34.3
--- NOTE | 2019-07-28 14:46 | P.HPIM ---
History of Present Illness H&P Date: 07/28/19 This is an 79-year-old female patient of Dr. Joyce and Dr. Breen with past medical history of coronary artery disease status post angioplasty and stenting RCA with known critical stenosis in the LAD, hyperlipidemia, hypertension, paroxysmal atrial fibrillation, obstructive sleep apnea unable to tolerate CPAP but using home O2 at 2 L at bedtime, diabetes mellitus type 2 diet controlled, gastroesophageal reflux disease, morbid obesity status post lap banding and removal with subsequent gastric sleeve. Patient states that she has been feeling tired and short of breath that had been worsening over the past week. Shortness of breath is worsened with exertion. She does have some chest pressure associated with it as well. No fever or chills. Patient states that she has had a colonoscopy done by Dr. Martins at [facility] for removal of a polyp approximately 5 years ago. She denies any recent blood in her stool or tarriness to her stools. No diarrhea or constipation. No nausea vomiting. She denies any nonsteroidal anti-inflammatory use. She does have history of irritable bowel syndrome. Patient came into [facility] emergency center for evaluation. Chest x-ray showed mild CHF. EKG junctional bradycardia with nonspecific ST-T wave changes in the inferior and anterior leads at rate of 42. White blood cell 8.2, hemoglobin 8.8, platelet count 244. Sodium 137, potassium 4.6, BUN 17 and creatinine 0.9. Troponin 0.012, TSH is normal, BNP 5770. Hemoglobin in October of this year was 12.6. Patient has been admitted to the cardiac [facility] unit and cardiology consult completed. Patient is currently on IV Lasix at 40 mg every 8 hours, amlodipine added. Stool for occult blood is negative. TSH 0.511. ProBNP 5770, troponin 0.012. Repeat hemoglobin 7.9. Echocardiogram reveals EF of 50-55%, moderate mitral regurgitation, severe tricuspid regurgitation, severe pulmonary hypertension, RVSP 94.66. Review of Systems Constitutional: Reports fatigue, Reports weakness, Denies anorexia, Denies chills, Denies fever, Denies poor appetite Eyes: denies blurred vision, denies pain Ears, nose, mouth and throat: Denies dysphagia, Denies mouth pain, Denies nasal congestion, Denies nasal discharge, Denies sore throat, Denies vertigo Cardiovascular: Reports decreased exercise tolerance, Reports dyspnea on exertion, Reports shortness of breath, Denies chest pain, Denies syncope Respiratory: Reports dyspnea, Reports home oxygen, Denies cough, Denies cough with sputum, Denies excessive sputum, Denies hemoptysis, Denies respiratory infections, Denies wheezing Gastrointestinal: Denies abdominal pain, Denies diarrhea, Denies loss of appetite, Denies nausea, Denies vomiting Genitourinary: Denies dysuria, Denies hematuria, Denies urgency, Denies urinary frequency Musculoskeletal: Denies muscle weakness, Denies myalgias Integumentary: Denies pruritus, Denies rash, Denies wounds Neurological: Denies change in mentation, Denies change in speech, Denies numbness, Denies weakness Psychiatric: Denies anxiety, Denies depression Endocrine: Denies fatigue, Denies weight change Past Medical History Past Medical History: Atrial Fibrillation, Asthma, Coronary Artery Disease (CAD), COPD, Diabetes Mellitus, GERD/Reflux, Hyperlipidemia, Hypertension, Myocardial Infarction (CA), Osteoarthritis (OA), Pneumonia, Skin Disorder, Sleep Apnea/CPAP/BIPAP Additional Past Medical History / Comment(s): Afib RVR/junctional rhythm that resolved, R femoral AV fistula after cardiac cath that resolved, ABBEY-cannot tolerate Cpap, home oxygen at 2L/NC at HS only, single R upper lobe pulmonary nodule being monitored, silent CA per pt, cardiomyopathy, circumflex occluded, mitral regurg, tricuspid regurg, NIDDM type II, neuropathy bilateral feet, 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 Last Myocardial Infarction Date:: unknown-"silent" History of Any Multi-Drug Resistant Organisms: None Reported Past Surgical History: Bariatric Surgery, Breast Surgery, Cholecystectomy, Heart Catheterization With Stent, Hysterectomy Additional Past Surgical History / Comment(s): 1988 Cardiac cath, 11/06/18 PCI with stents to RCA, lap banding since removed then gastric sleeve, EGD/colonoscopies, R benign breast biopsy, R mastoid process osteomylitis with surgery, brain surgery with 2 titanium screws d/t CSF leak from R ear, bilateral cataract removals/lens implants, epidural pain injections, sinus surgery. Past Anesthesia/Blood Transfusion Reactions: No Reported Reaction Additional Past Anesthesia/Blood Transfusion Reaction / Comment(s): Pt has received blood in past without reaction. Date of Last Stent Placement:: 11/03/18 Smoking Status: Former smoker Additional Past Alcohol Use History / Comment(s): Patient was a smoker of one and half packs per day for 42 years quit in 1993. She denies any marijuana or street drug use. She drinks alcohol occasionally. She has home O2 at 2 L nasal cannula obstructive sleep apnea. - Past Family History Brother(s) Family Medical History: Cancer Additional Family Medical History / Comment(s): The patient has a total of 2 full brothers one has history of non-Hodgkin's lymphoma. One has from coronary artery disease and drug abuse. Patient has 6 1/2 brothers all had cancer mostly lung cancer and one had laryngeal cancer. Father Family Medical History: Myocardial Infarction (CA) Additional Family Medical History / Comment(s): Father of a CA at the age of 44yrs. Mother Family Medical History: No Reported History Additional Family Medical History / Comment(s): Mother at age 67 from a motor vehicle accident. Medications and Allergies Home Medications Medication Instructions Recorded Confirmed Type Sertraline [Zoloft] 50 mg PO DAILY 08/17/14 07/27/19 History Cyanocobalamin [Vitamin B-12] 500 mcg PO DAILY 03/21/18 07/27/19 History Montelukast Sodium [Singulair] 10 mg PO HS 03/21/18 07/27/19 History Multivitamins, Thera [Multivitamin 1 tab PO DAILY 03/21/18 07/27/19 History (formulary)] Clopidogrel [Plavix] 75 mg PO DAILY #90 tab 11/04/18 07/27/19 Rx Nitroglycerin Sl Tabs [Nitrostat] 0.4 mg SUBLINGUAL Q5M PRN #25 tab 11/04/18 07/27/19 Rx Metoprolol Tartrate [Lopressor] 25 mg PO BID #60 tablet 11/09/18 07/27/19 Rx Magnesium Gluconate [Magonate] 500 mg PO DAILY 01/29/19 07/27/19 History ALPRAZolam [Xanax] 0.25 mg PO BID PRN 02/08/19 07/27/19 History Albuterol Sulfate [Ventolin HFA] 1 - 2 puff INHALATION RT-Q6H PRN 07/27/19 07/27/19 History Atorvastatin [Lipitor] 80 mg PO HS 07/27/19 07/27/19 History Budesonide [Pulmicort] 0.5 mg INHALATION RT-BID 07/27/19 07/27/19 History Cholecalciferol (Vitamin D3) 2,000 unit PO DAILY 07/27/19 07/27/19 History [Vitamin D3] Furosemide [Lasix] 20 mg PO MOWEFR 07/27/19 07/27/19 History Olmesartan Medoxomil [Benicar] 40 mg PO DAILY 07/27/19 07/27/19 History hydrALAZINE HCL [Apresoline] 100 mg PO TID 07/27/19 07/27/19 History Allergies Allergy/AdvReac Type Severity Reaction Status Date / Time Sulfa (Sulfonamide Allergy Unknown Verified 07/27/19 14:01 Antibiotics) Childhood heparin AdvReac bloody nose Verified 07/27/19 14:01 Physical Exam Vitals: Vital Signs Temp Pulse Pulse Resp BP BP BP 07/28/19 09:30 98.3 F 55 L 18 176/73 07/28/19 07:43 60 07/28/19 07:35 58 L 07/28/19 04:00 98.3 F 53 L 18 175/77 193/70 07/28/19 00:00 98.2 F 53 L 18 163/70 07/27/19 20:26 60 07/27/19 20:18 60 07/27/19 20:00 97.5 F L 55 L 18 219/81 07/27/19 15:30 98.2 F 50 L 18 195/79 07/27/19 14:56 97.7 F 48 L 16 208/62 07/27/19 13:11 42 L 16 164/59 07/27/19 12:59 39 L 16 07/27/19 12:51 40 L 16 07/27/19 12:25 97.7 F 42 L 18 153/55 Pulse Ox 07/28/19 09:30 98 07/28/19 07:43 07/28/19 07:35 97 07/28/19 04:00 96 07/28/19 00:00 97 07/27/19 20:26 07/27/19 20:18 07/27/19 20:00 95 07/27/19 15:30 96 07/27/19 14:56 96 07/27/19 13:11 98 07/27/19 12:59 07/27/19 12:51 07/27/19 12:25 97 Intake and Output 07/27/19 07/28/19 07/28/19 22:59 06:59 14:59 Intake Total 360 Balance 360 Intake: Oral 360 Other: Voiding Method Toilet Toilet Toilet # Voids 2 3 Weight 85.2 kg Gen: This is an 79-year-old female. Patient is resting in chair and appears to be comfortable and in no acute distress. HEENT: Head is atraumatic, normocephalic. Pupils equal, round. Sclerae is anicteric. NECK: Supple. No JVD. No lymphadenopathy. No thyromegaly. LUNGS: Clear to auscultation. No wheezes or rhonchi. No intercostal retractions. HEART: Regular rate and rhythm. Systolic murmur. ABDOMEN: Soft. Bowel sounds are present. No masses. No tenderness. EXTREMITIES: No pedal edema. No calf tenderness. Dorsalis pedis +2 bilaterally. NEUROLOGICAL: Patient is awake, alert and oriented x3. Cranial nerves 2 through 12 are grossly intact. Results CBC & Chem 7: 07/30/19 05:43 07/30/19 05:43 Labs: Abnormal Lab Results - Last 24 Hours (Table) 07/27/19 07/27/19 07/27/19 Range/Units 12:45 12:45 12:45 RBC 3.70 L (3.80-5.40) m/uL Hgb 8.8 L (11.4-16.0) gm/dL Hct 28.6 L (34.0-46.0) % MCV 77.3 L (80.0-100.0) fL MCH 23.7 L (25.0-35.0) pg MCHC 30.7 L (31.0-37.0) g/dL PT 12.7 H (9.0-12.0) sec INR 1.2 H (<1.2) Carbon Dioxide 20 L (22-30) mmol/L Glucose 124 H (74-99) mg/dL POC Glucose (mg/dL) (75-99) mg/dL AST 39 H (14-36) U/L 07/27/19 07/27/19 07/28/19 Range/Units 16:16 20:48 00:57 RBC 3.47 L (3.80-5.40) m/uL Hgb 8.1 L (11.4-16.0) gm/dL Hct 26.6 L (34.0-46.0) % MCV 76.6 L (80.0-100.0) fL MCH 23.5 L (25.0-35.0) pg MCHC 30.7 L (31.0-37.0) g/dL PT (9.0-12.0) sec INR (<1.2) Carbon Dioxide (22-30) mmol/L Glucose (74-99) mg/dL POC Glucose (mg/dL) 103 H 117 H (75-99) mg/dL AST (14-36) U/L 07/28/19 07/28/19 07/28/19 Range/Units 06:11 06:26 06:26 RBC 3.36 L (3.80-5.40) m/uL Hgb 7.9 L (11.4-16.0) gm/dL Hct 25.4 L (34.0-46.0) % MCV 75.6 L (80.0-100.0) fL MCH 23.5 L (25.0-35.0) pg MCHC (31.0-37.0) g/dL PT (9.0-12.0) sec INR (<1.2) Carbon Dioxide 33 H (22-30) mmol/L Glucose (74-99) mg/dL POC Glucose (mg/dL) 105 H (75-99) mg/dL AST (14-36) U/L Thrombosis Risk Factor Assmnt - DVT/VTE Prophylaxis DVT/VTE Prophylaxis: Mechanical Prophylaxis ordered - Choose All That Apply Any of the Below Risk Factors Present?: Yes Each Factor Represents 1 point: Abnormal pulmonary function (COPD), Heart failure (<1month), Obesity (BMI >25) Other Risk Factors: Yes Each Risk Factor Represents 2 Points: Malignancy Each Risk Factor Represents 3 Points: Age 75 years or older Other congenital or acquired thrombophilia - If yes, enter type in comment: No Thrombosis Risk Factor Assessment Total Risk Factor Score: 8 Thrombosis Risk Factor Assessment Level: High Risk Assessment and Plan Plan: 1. Shortness of breath and weakness secondary to acute diastolic heart failure exacerbation by anemia and bradycardia. Cardiology consult appreciated. Continue cardiac monitoring. Echocardiogram as above. 2. Junctional rhythm with heart rate in the 40s. Beta amirah on hold. 3. Anemia with possible chronic blood loss. Stool for occult blood has been negative. Patient has had a drop in hemoglobin since October. GI consult. 4. Paroxysmal atrial fibrillation, not on anticoagulation. Per cardiology possible watchman device candidate. 5. Hypertension. Continue losartan 50 mg daily, hydralazine 100 mg 3 times daily, Norvasc 10 mg daily has been added 6. Hyperlipidemia. Continue atorvastatin 80 mg at bedtime 7. Coronary artery disease status post stenting of the RCA in October 2018. Continue Plavix 75 mg daily, atorvastatin. 8. Obstructive sleep apnea unable to tolerate CPAP, utilizing O2 at 2 L at bedtime. 9. Diabetes mellitus, diet controlled. 10. Gastroesophageal reflux disease. Protonix. 11. Morbid obesity status post lap band and removal, gastric sleeve, stable. Dr. Gilbert has been her general surgeon. 12. COPD, not in exacerbation. Continue Pulmicort 0.5 mg twice daily, albuterol every 6 hours as needed, singular 10 mg at bedtime. 13. Recurrent depression. Continue sertraline 50 mg daily. 14. GI prophylaxis. Protonix. 15. DVT prophylaxis. SCDs and MARLEEN hose. Patient will be admitted to the hospital for a minimum of 2 night stay. Discharge plan: Most likely return home. Impression and plan of care have been directed as dictated by the signing physician. Angie Castellon nurse practitioner acting as scribe for signing physician.
[2019-07-28] MEDS ORDERED: PEG 3350-NA SULF,BICARB,CL/KCL 4,000 ML BOTTLE PO ONE (15:23)
[2019-07-28] MEDS ORDERED: FUROSEMIDE 20 MG TAB PO SCH (15:54)
[2019-07-28 16:14] LABS: HCT 30.3 % (34.0-46.0); Hypochromasia Moderate; MCH 23.6 pg (25.0-35.0); MCHC 31.1 g/dL (31.0-37.0); MCV 75.8 fL (80.0-100.0); Mean Platelet Volume 6.9; Microcytosis Slight; Platelet Count 240 k/uL (150-450); RDW 14.8 % (11.5-15.5); WBC 8.4 k/uL (3.8-10.6)
[2019-07-28 16:14] LABS: % Iron Saturation 5.13 (12.00-45.00)
[2019-07-28 16:20] LABS: HGB 9.4 gm/dL (11.4-16.0)
[2019-07-28 16:44] LABS: Glucose,Whole Blood 123 mg/dL (75-99)
[2019-07-28 20:38] LABS: Glucose,Whole Blood 111 mg/dL (75-99)
--- NOTE | 2019-07-28 20:46 | CONS ---
CONSULTATION REFERRING PHYSICIAN: Dr. Roy. REASON FOR CONSULTATION: Microcytic hypochromic anemia. HISTORY OF PRESENT ILLNESS: The patient is an 79-year-old pleasant white female admitted to the hospital with progressive shortness of breath for the last 2 weeks duration. In the emergency room, she was noted to have a hemoglobin of 8.8, which dropped down to 7.9 g/dL with microcytosis and hypochromia suggestive of iron deficiency anemia. The patient denies any abdominal pain. She reports no nausea or vomiting. Denies any rectal bleeding or melena. She did have an EGD and colonoscopy approximately 6 years ago that was unremarkable. She denies any recent NSAID use. No prior history of peptic ulcer disease. She does have history of coronary artery disease status post angioplasty with stent placement and has been on aspirin and Plavix. She did have a chest x-ray that showed evidence of mild congestive heart failure. Cardiology following the patient closely. Presently on IV Lasix and her symptoms are significantly improved. Shortness of breath has almost resolved. PAST MEDICAL HISTORY: Significant for coronary artery disease, status post angioplasty in the past, history of chronic obstructive pulmonary disease on home O2, diabetes mellitus, hypertension, hyperlipidemia, degenerative joint disease, and sleep apnea, atrial fibrillation. PAST SURGICAL HISTORY: Cholecystectomy, breast surgery, bariatric surgery with gastric sleeve surgery in the past, prior to which she had a lap band surgery, hysterectomy. MEDICATIONS: At home include Zoloft, vitamin B12, Singulair, Plavix, aspirin, Nitrostat, Lopressor, albuterol, Lipitor, Pulmicort, vitamin D3, Benicar, Lasix, . ALLERGIES: TO SULFA AND HEPARIN. SOCIAL HISTORY: No smoking. No alcohol use. FAMILY HISTORY: Unremarkable. REVIEW OF SYSTEMS: Cardiopulmonary: She does have shortness of breath, but no chest pain. NEUROLOGY unremarkable. Psychiatric unremarkable. ENT/vision unremarkable. CONSTITUTIONAL: No recent weight loss. No fever, chills, night sweats. ENDOCRINE unremarkable. HEMATOLOGY: Anemia as mentioned above. PHYSICAL EXAMINATION: She appears comfortable. No apparent distress. Vital signs are stable. Blood pressure is 136/73, pulse rate 55, temperature 98.5. HEENT examination unremarkable. Conjunctivae pink. Sclerae anicteric. Oral cavity no lesions. NECK: No JVD or lymph node enlargement. CHEST: Clear to auscultation. HEART: Regular rate and rhythm. ABDOMEN: Soft. Bowel sounds are positive. No organomegaly. EXTREMITIES: No pedal edema. SKIN no rashes. NEUROLOGIC: Alert and oriented x3. No focal deficits. LABS: WBC 6.4, hemoglobin 7.9, platelets normal, MCV 75.6. Basic metabolic panel is within normal limits. Her hemoglobin was 12 g/dL about 3 months ago. IMPRESSION: 1. Microcytic hypochromic anemia, most likely as a result of iron deficiency anemia. Clinically no evidence of active ongoing bleeding. Iron indices are pending at the time of this dictation. The patient did have an EGD, colonoscopy approximately 6 years ago that was unremarkable. 2. Shortness of breath secondary to exacerbation of congestive heart failure. Cardiology following the patient closely. Presently on IV Lasix and doing much better. 3. History of coronary artery disease in the past, status post myocardial infarction, history of angioplasty with stent placement, but currently on aspirin and Plavix which is on hold. 4. Chronic obstructive pulmonary disease on home O2. 5. Diabetes mellitus. 6. Hypertension. RECOMMENDATIONS: I had a lengthy discussion with the patient regarding workup of hypochromic microcytic anemia. At this time, I believe most likely we are dealing with iron deficiency secondary to occult gastrointestinal blood loss. Clinically no evidence of active bleeding. I recommended an EGD and colonoscopy as part of workup of microcytic anemia and she is agreeable to it. She would like to have this time during the hospital stay and hence this procedure is to be scheduled for tomorrow. I discussed with her the risks, benefits and complications of the procedure and she is agreeable to it. Thank you for this consultation. MMODL / IJN: [id number] /
[2019-07-28] MEDS: ATORVASTATIN 80 MG TAB PO SCH (21:24)
[2019-07-28] MEDS: MONTELUKAST 10 MG TAB PO SCH (21:24)
[2019-07-28 22:52] LABS: HCT 32.5 % (34.0-46.0); HGB 9.9 gm/dL (11.4-16.0); Hypochromasia Moderate; MCH 23.1 pg (25.0-35.0); MCHC 30.6 g/dL (31.0-37.0); MCV 75.4 fL (80.0-100.0); Mean Platelet Volume 6.6; Microcytosis Slight; Platelet Count 248 k/uL (150-450); RBC 4.31 m/uL (3.80-5.40); WBC 9.9 k/uL (3.8-10.6)
[2019-07-29 06:26] LABS: Glucose,Whole Blood 104 mg/dL (75-99)
[2019-07-29] MEDS: LOSARTAN 50 MG TAB PO SCH (06:52)
[2019-07-29] MEDS: hydrALAZINE HCL 50 MG TAB PO SCH ×3 (06:52→22:35)
[2019-07-29] MEDS: amLODIPine 10 MG TAB PO SCH (06:52)
[2019-07-29] MEDS: PANTOPRAZOLE 40 MG TABLET PO SCH (06:52)
[2019-07-29] MEDS: FUROSEMIDE 10 MG/ML 4 ML VIAL IV SCH (06:52)
[2019-07-29] MEDS: ALPRAZolam 0.25 MG TAB PO PRN (06:57)
[2019-07-29 07:07] LABS: HCT 29.6 % (34.0-46.0); HGB 9.1 gm/dL (11.4-16.0); Hypochromasia Moderate; MCH 22.9 pg (25.0-35.0); MCHC 30.7 g/dL (31.0-37.0); MCV 74.6 fL (80.0-100.0); Mean Platelet Volume 6.9; Microcytosis Slight; Platelet Count 247 k/uL (150-450); RBC 3.96 m/uL (3.80-5.40); RDW 14.9 % (11.5-15.5); WBC 9.3 k/uL (3.8-10.6)
[2019-07-29 07:30] LABS: Calcium 8.8 mg/dL (8.4-10.2); Potassium 3.4 mmol/L (3.5-5.1)
[2019-07-29] MEDS: BUDESONIDE 0.5 MG/2 ML NEBU INHALATION SCH ×2 (08:54→20:08)
[2019-07-29] MEDS: SERTRALINE 50 MG TAB PO SCH (09:22)
[2019-07-29] MEDS: CYANOCOBALAMIN 500 MCG TAB PO SCH (09:22)
[2019-07-29] MEDS: CHOLECALCIFEROL 1,000 UNIT TAB PO SCH (09:22)
[2019-07-29] MEDS ORDERED: ePHEDrine SULFATE/0.9% NACL/PF 50 MG/5 ML SYRINGE IV ONE (10:14)
[2019-07-29] MEDS ORDERED: PROPOFOL 10 MG/ML 20 ML VIAL IV ONE (10:14)
--- NOTE | 2019-07-29 10:46 | P.PCN ---
Date of Procedure: 07/29/19 Procedure(s) Performed: Brief history: Patient is a pleasant 7-year-old pleasant white female scheduled for an upper endoscopy as a part of evaluation of shortness of breath and iron deficiency anemia. She denies any GI symptoms. Hemoglobin was 7.5 g/dL. She is hence scheduled for an upper endoscopy as well as colonoscopy to evaluate further. Procedure performed: Esophagogastroduodenoscopy with biopsy Colonoscopy with snare polypectomy Preoperative diagnosis: Iron deficiency anemia Anesthesia: MAC Procedure: After informed consent was obtained from the patient was brought into the endoscopy unit and IV sedation was administered by anesthesia under continuous monitoring. Initially upper endoscopy was done. The Olympus GF 160 video endoscope was inserted inserted into the mouth and esophagus intubated without any difficulty and was gradually advanced into the stomach and duodenum and c arefully examined. The bulb and second part of the duodenum appeared normal. Biopsies were done from the duodenum to rule out celiac disease. The scope was then withdrawn into the stomach adequately insufflated with air and upon careful examination the antrum had gastritis and biopsies were done from this area. There was evidence of gastric sleeve surgery noted and there was gastritis noted in the gastric sleeve. The scope was then withdrawn into the esophagus. The GE junction was located at 40 cm to the incisors. It appeared regular with no erythema erosions or ulcerations. Rest of the esophagus appeared normal. Patient tolerated the procedure well. At this time the patient continued to remain sedation. Initial digital rectal examination was normal. Olympus CF 160 video colonoscope was then inserted into the rectum and gradually advanced to the cecum without any difficulty. Careful examination was performed as the scope was gradually being withdrawn. The prep was excellent. The cecum, ascending colon appeared normal. In the transverse colon there was a 5 mm polyp that was removed by snare polypectomy. Rest of the , transverse colon, descending colon, sigmoid colon and rectum appeared normal. Scattered left sided diverticulosis seen. Retroflexion was performed in the rectum and no lesions were noted. Patient tolerated the procedure well. Impression: 1. Upper endoscopy revealed evidence of gastric sleeve surgery, mild antral gastritis but no evidence of peptic ulcer disease 2. Colonoscopy revealed 5 mm transverse colon polyp that was removed by snare p olypectomy and moderate sigmoid diverticulosis. Recommendations: Findings of this examination were discussed with the patient as well as her family. She was advised to follow with the biopsy results. Diet will be advanced as tolerated. Resume aspirin and Plavix today.. Start on iron supplementation. If she has persistent iron deficiency anemia, will consider a small bowel capsule endoscopy as outpatient basis in the future..
--- NOTE | 2019-07-29 10:57 | P.PN ---
Subjective Progress Note Date: 07/29/19 This is a pleasant 78-year-old female with history of severe mitral regurgitation for which the patient underwent a cardiac catheterization in October of this year, and was found to have critical stenosis in the LAD with no significant mitral regurgitation. Subsequently patient underwent angioplasty and stenting of the right coronary artery. Patient also has history of hyperlipidemia, hypertension, atrial fibrillation. She had a subsequent admission to the hospital after her stent placement with atrial fibrillation with rapid ventricular response. She presents to the hospital on this occasion with symptoms of progressively worsening shortness of breath, mostly exertional in nature, severe weakness and tiredness. Patient used to follow with Dr. Atwood in the office, she now follows with Dr. Breen. Her chest x-ray on admission here showed mild CHF. EKG on arrival here showed a junctional bradycardia with nonspecific ST-T wave changes in the inferior and anterior lead s. According to the patient, she has been told in the past that she may need a pacemaker down the road. Blood pressure 164/50, 208/60, heart rate in the 40s. White blood cell count 8.2, hemoglobin 8.8, platelet count 244. Sodium 137, potassium 4.6, BUN 17 and creatinine 0.9. Troponin 0.012, TSH is normal, BNP 5770. Hemoglobin in October of this year was 12.6. Patient denies having any black stool or blood in her stool, but she states she never to see the color. She does have history of H. pylori several years ago. At the time of my examination this afternoon, she is lying comfortably in bed, no complaints. 07/28/2019 Patient seen and examined this morning, continues to feel short of breath. Hemoglobin down to 7.9 today. She has diuresing on the IV Lasix, her weight is down significantly. Echocardiogram with Doppler study was performed yesterday and the results are yet pending. Blood pressure 177/70 in the left arm, 193/70 in the right arm, 96% on 4 L of oxygen, heart rate in the 50s. White blood cell count 6.4, hemoglobin 7.9, platelet count 215. We will request a BMP today and daily. 07/29/2019 Patient seen and examined this morning, she states that she did not sleep well through the night last night, up going the bathroom several times. Scheduled today to undergo colonoscopy. White blood cell count 9.3, hemoglobin 9.1, platelet count 247. Sodium 138, potassium 3.4, BUN 17, creatinine 0.8. Objective - Vital Signs Vital signs: Vital Signs Temp 99.2 F 07/29/19 07:00 Pulse 72 07/29/19 09:06 Resp 18 07/29/19 07:49 BP 154/65 07/29/19 07:00 Pulse Ox 93 L 07/29/19 08:54 Intake & Output 07/28/19 07/29/19 07/29/19 18:59 06:59 18:59 Intake Total 600 240 20 Balance 600 240 20 Weight 85.2 kg 83.4 kg Intake: IV 20 Invasive Line 1 20 Oral 600 240 Other: Voiding Method Toilet Toilet Toilet # Voids 3 1 # Bowel Movements 1 - Exam PHYSICAL EXAMINATION: GENERAL: 78-year-old female in no acute distress at the time of my examination HEENT: Head is atraumatic, normocephalic. Pupils equal, round. Sclera anicteric. Conjunctiva are clear. Mucous membranes of the mouth are moist. Neck is supple. There is no elevated jugular venous pressure. No carotid bruit is heard. HEART EXAMINATION: Heart S1 S2 1 systolic murmur is heard at the apex. CHEST EXAMINATION: Lungs are clear to auscultation with mild diminished air entry to the bases . No chest wall tenderness is noted on palpation or with deep breathing. ABDOMEN: Soft, nontender. Bowel sounds are heard. No organomegaly noted. EXTREMITIES: 2+ peripheral pulses with no evidence of peripheral edema and no calf tenderness noted.loud bruit heard at right groin NEUROLOGIC patient is awake, alert and oriented 3 . - Labs CBC & Chem 7: 07/29/19 05:38 07/29/19 05:38 Labs: Abnormal Lab Results - Last 24 Hours (Table) 07/28/19 07/28/19 07/28/19 Range/Units 06:26 06:26 11:48 Hgb (11.4-16.0) gm/dL Hct (34.0-46.0) % MCV (80.0-100.0) fL MCH (25.0-35.0) pg MCHC (31.0-37.0) g/dL Potassium (3.5-5.1) mmol/L Chloride (98-107) mmol/L Carbon Dioxide 33 H (22-30) mmol/L POC Glucose (mg/dL) 119 H (75-99) mg/dL Iron 20 L (50-170) ug/dL % Saturation 5.13 L (12.00-45.00) 07/28/19 07/28/19 07/28/19 Range/Units 15:50 16:41 20:37 Hgb 9.4 L D (11.4-16.0) gm/dL Hct 30.3 L (34.0-46.0) % MCV 75.8 L (80.0-100.0) fL MCH 23.6 L (25.0-35.0) pg MCHC (31.0-37.0) g/dL Potassium (3.5-5.1) mmol/L Chloride (98-107) mmol/L Carbon Dioxide (22-30) mmol/L POC Glucose (mg/dL) 123 H 111 H (75-99) mg/dL Iron (50-170) ug/dL % Saturation (12.00-45.00) 07/28/19 07/29/19 07/29/19 Range/Units 22:32 05:38 05:38 Hgb 9.9 L 9.1 L (11.4-16.0) gm/dL Hct 32.5 L 29.6 L (34.0-46.0) % MCV 75.4 L 74.6 L (80.0-100.0) fL MCH 23.1 L 22.9 L (25.0-35.0) pg MCHC 30.6 L 30.7 L (31.0-37.0) g/dL Potassium 3.4 L (3.5-5.1) mmol/L Chloride 95 L (98-107) mmol/L Carbon Dioxide 32 H (22-30) mmol/L POC Glucose (mg/dL) (75-99) mg/dL Iron (50-170) ug/dL % Saturation (12.00-45.00) 07/29/19 Range/Units 06:24 Hgb (11.4-16.0) gm/dL Hct (34.0-46.0) % MCV (80.0-100.0) fL MCH (25.0-35.0) pg MCHC (31.0-37.0) g/dL Potassium (3.5-5.1) mmol/L Chloride (98-107) mmol/L Carbon Dioxide (22-30) mmol/L POC Glucose (mg/dL) 104 H (75-99) mg/dL Iron (50-170) ug/dL % Saturation (12.00-45.00) Assessment and Plan Plan: Assessment and plan #1 symptoms of progressively worsening exertional shortness of breath with associated weakness and tiredness, could be secondary to anemia and bradycardia. #2 anemia, hemoglobin 8.8, hemoglobin in October of this year in the 12-13 range #3 junctional rhythm with a heart rate in the 40s, on beta amirah at home #4 paroxysmal atrial fibrillation, not able to be on anticoagulation because of the significant bruising, was recommended to be evaluated for possible watchman device #5 hypertension, accelerated #6 hyperlipidemia #7 CAD with stenting of the right coronary artery in October of this year, currently on baby aspirin and Plavix #8 history of H. pylori #9 obstructive sleep apnea #10 [id number] diabetes Plan Echocardiogram with Doppler study revealed an ejection fraction of 50-55%, moderate mitral regurgitation and severe tricuspid regurg. Severe pulmonary hypertension. Scheduled for colonoscopy today. DNP note has been reviewed, I agree with a documented findings and plan of care. Patient was seen and examined.
[2019-07-29] MEDS ORDERED: POTASSIUM CHLORIDE ER 20 MEQ TAB.ER PO STA ×2 (11:11→11:14)
[2019-07-29] MEDS: FERROUS SULFATE 325 MG TAB PO SCH ×2 (11:21→15:53)
[2019-07-29 11:59] LABS: Glucose,Whole Blood 127 mg/dL (75-99)
--- NOTE | 2019-07-29 15:20 | P.PN ---
Subjective Progress Note Date: 07/29/19 This is an 79-year-old female patient of Dr. Moreno and Dr. Breen with past medical history of coronary artery disease status post angioplasty and stenting RCA with known critical stenosis in the LAD, hyperlipidemia, hypertension, paroxysmal atrial fibrillation, obstructive sleep apnea unable to tolerate CPAP but using home O2 at 2 L at bedtime, diabetes mellitus type 2, gastroesophageal reflux disease, morbid obesity status post lap banding and removal with subsequent gastric sleeve. Patient states that she has been feeling tired and short of breath that had been worsening over the past week. Shortness of breath is worsened with exertion. She does have some chest pressure associated with it as well. No fever or chills. Patient states that she has had a colonoscopy done by Dr. Martins at [facility] for removal of a polyp approximately 5 years ago. She denies any recent blood in her stool or tarriness to her stools. No diarrhea or constipation. No nausea vomiting. She denies any nonsteroidal anti-inflammatory use. She does have history of irritable bowel syndrome. Patient came into [facility] emergency center for evaluation. Chest x-ray showed mild CHF. EKG junctional bradycardia with nonspecific ST-T wave changes in the inferior and anterior leads at rate of 42. White blood cell 8.2, hemoglobin 8.8, platelet count 244. Sodium 137, potassium 4.6, BUN 17 and creatinine 0.9. Troponin 0.012, TSH is normal, BNP 5770. Hemoglobin in October of this year was 12.6. Patient has been admitted to the cardiac stepdown unit and cardiology consult completed. Patient is currently on IV Lasix at 40 mg every 8 hours, amlodipine added. Stool for occult blood is negative. TSH 0.511. ProBNP 5770, troponin 0.012. Repeat hemoglobin 7.9. Echocardiogram reveals EF of 50-55%, moderate mitral regurgitation, severe tricuspid regurgitation, severe pulmonary hypertension, RVSP 94.66. 07/29: Patient states that her breathing status is much improved today. We will transition IV Lasix to oral at 40 mg twice daily. Hemoglobin is 9.1, potassium 3.4 and replaced. Patient underwent upper endoscopy that revealed gastric sleeve surgery, mild antral gastritis with no evidence of peptic ulcer disease. Colonoscopy revealed 5 mm transverse colon polyp that was removed placed near polypectomy and moderate sigmoid diverticulosis. Recommendations to advance diet as tolerated and resume aspirin and Plavix today, start iron supplementatio n. If she has resisted iron deficiency anemia, will consider a small bowel capsule endoscopy as an outpatient. Plan will be to monitor patient overnight, recheck lab work and possible discharge tomorrow. Review of Systems Constitutional: Reports fatigue, Reports weakness, Denies anorexia, Denies chills, Denies fever, Denies poor appetite Ears, nose, mouth and throat: Denies dysphagia, Denies mouth pain, Denies nasal congestion, Denies nasal discharge, Denies sore throat, Denies vertigo Cardiovascular: Reports decreased exercise tolerance, Reports dyspnea on exertion, Reports shortness of breath, Denies chest pain, Denies syncope Respiratory: Reports dyspnea, Reports home oxygen, Denies cough, Denies cough with sputum, Denies excessive sputum, Denies hemoptysis, Denies respiratory infections, Denies wheezing Gastrointestinal: Denies abdominal pain, Denies diarrhea, Denies loss of appetite, Denies nausea, Denies vomiting Genitourinary: Denies dysuria, Denies hematuria, Denies urgency, Denies urinary frequency Musculoskeletal: Denies muscle weakness, Denies myalgias Integumentary: Denies pruritus, Denies rash, Denies wounds Neurological: Denies change in mentation, Denies change in speech, Denies numbness, Denies weakness Psychiatric: Denies anxiety, Denies depression Endocrine: Denies fatigue, Denies weight change Objective - Vital Signs Vital signs: Vital Signs Temp 99.2 F 07/29/19 07:00 Pulse 72 07/29/19 09:06 Resp 18 07/29/19 07:49 BP 154/65 07/29/19 07:00 Pulse Ox 93 L 07/29/19 08:54 Intake & Output 07/28/19 07/29/19 07/29/19 18:59 06:59 18:59 Intake Total 600 240 20 Balance 600 240 20 Weight 85.2 kg 83.4 kg Intake: IV 20 Invasive Line 1 20 Oral 600 240 Other: Voiding Method Toilet Toilet Toilet # Voids 3 1 # Bowel Movements 1 - Exam Gen: This is an 79-year-old female. Patient is resting in bed and appears to be comfortable and in no acute distress. HEENT: Head is atraumatic, normocephalic. Pupils equal, round. Sclerae is anicteric. NECK: Supple. No JVD. No lymphadenopathy. No thyromegaly. LUNGS: Clear to auscultation. No wheezes or rhonchi. No intercostal retractions . HEART: Regular rate and rhythm. Systolic murmur. ABDOMEN: Soft. Bowel sounds are present. No masses. No tenderness. EXTREMITIES: No pedal edema. No calf tenderness. Dorsalis pedis +2 bilaterall y. NEUROLOGICAL: Patient is awake, alert and oriented x3. Cranial nerves 2 through 12 are grossly intact. - Labs CBC & Chem 7: 07/29/19 05:38 07/29/19 05:38 Labs: Abnormal Lab Results - Last 24 Hours (Table) 07/28/19 07/28/19 07/28/19 Range/Units 06:26 11:48 15:50 Hgb 9.4 L D (11.4-16.0) gm/dL Hct 30.3 L (34.0-46.0) % MCV 75.8 L (80.0-100.0) fL MCH 23.6 L (25.0-35.0) pg MCHC (31.0-37.0) g/dL Potassium (3.5-5.1) mmol/L Chloride (98-107) mmol/L Carbon Dioxide (22-30) mmol/L POC Glucose (mg/dL) 119 H (75-99) mg/dL Iron 20 L (50-170) ug/dL % Saturation 5.13 L (12.00-45.00) 07/28/19 07/28/19 07/28/19 Range/Units 16:41 20:37 22:32 Hgb 9.9 L (11.4-16.0) gm/dL Hct 32.5 L (34.0-46.0) % MCV 75.4 L (80.0-100.0) fL MCH 23.1 L (25.0-35.0) pg MCHC 30.6 L (31.0-37.0) g/dL Potassium (3.5-5.1) mmol/L Chloride (98-107) mmol/L Carbon Dioxide (22-30) mmol/L POC Glucose (mg/dL) 123 H 111 H (75-99) mg/dL Iron (50-170) ug/dL % Saturation (12.00-45.00) 07/29/19 07/29/19 07/29/19 Range/Units 05:38 05:38 06:24 Hgb 9.1 L (11.4-16.0) gm/dL Hct 29.6 L (34.0-46.0) % MCV 74.6 L (80.0-100.0) fL MCH 22.9 L (25.0-35.0) pg MCHC 30.7 L (31.0-37.0) g/dL Potassium 3.4 L (3.5-5.1) mmol/L Chloride 95 L (98-107) mmol/L Carbon Dioxide 32 H (22-30) mmol/L POC Glucose (mg/dL) 104 H (75-99) mg/dL Iron (50-170) ug/dL % Saturation (12.00-45.00) Assessment and Plan Plan: 1. Shortness of breath and weakness secondary to acute diastolic heart failure exacerbation by anemia and bradycardia. Cardiology consult appreciated. Continue cardiac monitoring. Echocardiogram as above. 2. Junctional rhythm with heart rate in the 40s. Beta amirah on hold. 3. Anemia with possible chronic blood loss. Stool for occult blood has been negative. Patient has had a drop in hemoglobin since October. GI consult. EGD and colonoscopy as above. Start ferrous sulfate 325 mg twice daily. 4. Paroxysmal atrial fibrillation, not on anticoagulation. Per cardiology possible watchman device candidate. 5. Hypertension. Continue losartan 50 mg daily, hydralazine 100 mg 3 times daily, Norvasc 10 mg daily has been added 6. Hyperlipidemia. Continue atorvastatin 80 mg at bedtime 7. Coronary artery disease status post stenting of the RCA in October 2018. Continue Plavix 75 mg daily, atorvastatin. 8. Obstructive sleep apnea unable to tolerate CPAP, utilizing O2 at 2 L at bedtime. 9. Diabetes mellitus, diet controlled. 10. Gastroesophageal reflux disease. Protonix. 11. Morbid obesity status post lap band and removal, gastric sleeve, stable. Dr. Gilbert has been her general surgeon. 12. COPD, not in exacerbation. Continue Pulmicort 0.5 mg twice daily, albuterol every 6 hours as needed, singular 10 mg at bedtime. 13. Recurrent depression. Continue sertraline 50 mg daily. 14. GI prophylaxis. Protonix. 15. DVT prophylaxis. SCDs and MARLEEN hose. Discharge plan: Most likely return home tomorrow Impression and plan of care have been directed as dictated by the signing physician. Angie Castellon nurse practitioner acting as scribe for signing physician.
[2019-07-29] MEDS: FUROSEMIDE 40 MG TAB PO SCH (15:53)
[2019-07-29 16:36] LABS: Glucose,Whole Blood 184 mg/dL (75-99)
[2019-07-29] MEDS: ATORVASTATIN 80 MG TAB PO SCH (19:54)
[2019-07-29] MEDS: MONTELUKAST 10 MG TAB PO SCH (19:54)
[2019-07-29 20:46] LABS: Glucose,Whole Blood 119 mg/dL (75-99)
[2019-07-30 05:48] LABS: Glucose,Whole Blood 115 mg/dL (75-99)
[2019-07-30 06:38] LABS: HCT 30.9 % (34.0-46.0); HGB 9.4 gm/dL (11.4-16.0); Hypochromasia Moderate; MCH 22.9 pg (25.0-35.0); MCHC 30.4 g/dL (31.0-37.0); MCV 75.1 fL (80.0-100.0); Mean Platelet Volume 7.6; Microcytosis Slight; Platelet Count 266 k/uL (150-450); RBC 4.11 m/uL (3.80-5.40); RDW 15.3 % (11.5-15.5); WBC 7.9 k/uL (3.8-10.6)
[2019-07-30] MEDS: FERROUS SULFATE 325 MG TAB PO SCH (06:41)
[2019-07-30 06:51] LABS: Calcium 8.7 mg/dL (8.4-10.2); Potassium 3.4 mmol/L (3.5-5.1)
[2019-07-30] MEDS: BUDESONIDE 0.5 MG/2 ML NEBU INHALATION SCH (07:13)
[2019-07-30] MEDS ORDERED: POTASSIUM CHLORIDE ER 20 MEQ TAB.ER PO STA (07:48)
[2019-07-30] MEDS ORDERED: CLOPIDOGREL 75 MG TAB PO SCH (09:00)
[2019-07-30] MEDS: PANTOPRAZOLE 40 MG TABLET PO SCH (09:25)
[2019-07-30] MEDS: hydrALAZINE HCL 50 MG TAB PO SCH (09:26)
[2019-07-30] MEDS: amLODIPine 10 MG TAB PO SCH (09:26)
[2019-07-30] MEDS: CHOLECALCIFEROL 1,000 UNIT TAB PO SCH (09:26)
[2019-07-30] MEDS: CYANOCOBALAMIN 500 MCG TAB PO SCH (09:26)
[2019-07-30] MEDS: SERTRALINE 50 MG TAB PO SCH (09:27)
[2019-07-30] MEDS: LOSARTAN 50 MG TAB PO SCH (09:27)
[2019-07-30] MEDS: FUROSEMIDE 40 MG TAB PO SCH (09:27)
--- NOTE | 2019-07-30 10:08 | P.PN ---
Subjective Progress Note Date: 07/30/19 This is a pleasant 78-year-old female with history of severe mitral regurgitation for which the patient underwent a cardiac catheterization in October of this year, and was found to have critical stenosis in the LAD with no significant mitral regurgitation. Subsequently patient underwent angioplasty and stenting of the right coronary artery. Patient also has history of hyperlipidemia, hypertension, atrial fibrillation. She had a subsequent admission to the hospital after her stent placement with atrial fibrillation with rapid ventricular response. She presents to the hospital on this occasion with symptoms of progressively worsening shortness of breath, mostly exertional in nature, severe weakness and tiredness. Patient used to follow with Dr. Atwood in the office, she now follows with Dr. Breen. Her chest x-ray on admission here showed mild CHF. EKG on arrival here showed a junctional bradycardia with nonspecific ST-T wave changes in the inferior and anterior lead s. According to the patient, she has been told in the past that she may need a pacemaker down the road. Blood pressure 164/50, 208/60, heart rate in the 40s. White blood cell count 8.2, hemoglobin 8.8, platelet count 244. Sodium 137, potassium 4.6, BUN 17 and creatinine 0.9. Troponin 0.012, TSH is normal, BNP 5770. Hemoglobin in October of this year was 12.6. Patient denies having any black stool or blood in her stool, but she states she never to see the color. She does have history of H. pylori several years ago. At the time of my examination this afternoon, she is lying comfortably in bed, no complaints. 07/28/2019 Patient seen and examined this morning, continues to feel short of breath. Hemoglobin down to 7.9 today. She has diuresing on the IV Lasix, her weight is down significantly. Echocardiogram with Doppler study was performed yesterday and the results are yet pending. Blood pressure 177/70 in the left arm, 193/70 in the right arm, 96% on 4 L of oxygen, heart rate in the 50s. White blood cell count 6.4, hemoglobin 7.9, platelet count 215. We will request a BMP today and daily. 07/29/2019 Patient seen and examined this morning, she states that she did not sleep well through the night last night, up going the bathroom several times. Scheduled today to undergo colonoscopy. White blood cell count 9.3, hemoglobin 9.1, platelet count 247. Sodium 138, potassium 3.4, BUN 17, creatinine 0.8. 07/30/2019 Patient was seen and examined this morning, underwent a colonoscopy and an EGD yesterday, upper endoscopy revealed evidence of gastric sleep surgery, mild antral gastritis with no evidence of peptic ulcer disease. Colonoscopy revealed a 5 mm transverse colon polyp that was removed by snare polypectomy, also showed moderate sigmoid diverticulosis. Patient was resumed on aspirin and Plavix and initiated on iron supplementation. If the patient has persistent iron deficiency anemia, they will consider small bowel Endoscopy As an Outpatient. Overall the Patient Feels Well This Morning. Blood Pressure 150/60 with a Heart Rate in the 70s to 80s, 94% on Room Air. White Blood Cell Count 7.9, Hemoglobin 9.4, Platelet Count 266. Sodium 140, Potassium 3.4, BUN 19 and Creatinine 0.9. Objective - Vital Signs Vital signs: Vital Signs Temp 98.1 F 07/30/19 08:22 Pulse 87 07/30/19 08:22 Resp 17 07/30/19 08:22 BP 151/66 07/30/19 08:22 Pulse Ox 94 L 07/30/19 08:22 Intake & Output 07/29/19 07/30/19 07/30/19 18:59 06:59 18:59 Intake Total 540 500 Output Total 600 Balance -60 500 Weight 84 kg Intake: IV 20 Invasive Line 1 20 Oral 520 500 Output: Urine 600 Other: Voiding Method Toilet Toilet Toilet # Voids 0 1 # Bowel Movements 1 - Exam PHYSICAL EXAMINATION: GENERAL: 78-year-old female in no acute distress at the time of my examination HEENT: Head is atraumatic, normocephalic. Pupils equal, round. Sclera anicteric. Conjunctiva are clear. Mucous membranes of the mouth are moist. Neck is supple. There is no elevated jugular venous pressure. No carotid bruit is heard. HEART EXAMINATION: Heart S1 S2 1 systolic murmur is heard at the apex. CHEST EXAMINATION: Lungs are clear to auscultation with mild diminished air entr y to the bases . No chest wall tenderness is noted on palpation or with deep breathing. ABDOMEN: Soft, nontender. Bowel sounds are heard. No organomegaly noted. EXTREMITIES: 2+ peripheral pulses with no evidence of peripheral edema and no calf tenderness noted.loud bruit heard at right groin NEUROLOGIC patient is awake, alert and oriented 3 . - Labs CBC & Chem 7: 07/30/19 05:43 07/30/19 05:43 Labs: Abnormal Lab Results - Last 24 Hours (Table) 07/29/19 07/29/19 07/29/19 Range/Units 11:46 16:23 20:44 Hgb (11.4-16.0) gm/dL Hct (34.0-46.0) % MCV (80.0-100.0) fL MCH (25.0-35.0) pg MCHC (31.0-37.0) g/dL Potassium (3.5-5.1) mmol/L Carbon Dioxide (22-30) mmol/L BUN (7-17) mg/dL Glucose (74-99) mg/dL POC Glucose (mg/dL) 127 H 184 H 119 H (75-99) mg/dL 07/30/19 07/30/19 07/30/19 Range/Units 05:43 05:43 05:46 Hgb 9.4 L (11.4-16.0) gm/dL Hct 30.9 L (34.0-46.0) % MCV 75.1 L (80.0-100.0) fL MCH 22.9 L (25.0-35.0) pg MCHC 30.4 L (31.0-37.0) g/dL Potassium 3.4 L (3.5-5.1) mmol/L Carbon Dioxide 31 H (22-30) mmol/L BUN 19 H (7-17) mg/dL Glucose 105 H (74-99) mg/dL POC Glucose (mg/dL) 115 H (75-99) mg/dL Assessment and Plan Plan: Assessment and plan #1 symptoms of progressively worsening exertional shortness of breath with associated weakness and tiredness, could be secondary to anemia and bradycardia. #2 anemia, hemoglobin 8.8, hemoglobin in October of this year in the 12-13 range #3 junctional rhythm with a heart rate in the 40s, on beta amirah at home #4 paroxysmal atrial fibrillation, not able to be on anticoagulation because of the significant bruising, was recommended to be evaluated for possible watchman device #5 hypertension, accelerated #6 hyperlipidemia #7 CAD with stenting of the right coronary artery in October of this year, currently on baby aspirin and Plavix #8 history of H. pylori #9 obstructive sleep apnea #10 [id number] diabetes Plan From cardiology's perspective, patient may be able to be discharged once cleared by primary and GI service. We will make her a follow-up appointment in the office post discharge. DNP note has been reviewed, I agree with a documented findings and plan of care. Patient was seen and examined.
[2019-07-30 11:59] VITALS: BP 159/69; PULSE 83; RESP 16; TEMP 97.1
[2019-07-30 12:05] LABS: Glucose,Whole Blood 158 mg/dL (75-99)
--- NOTE | 2019-07-30 15:36 | P.DS ---
Providers Date of admission: 07/29/19 11:36 Expected date of discharge: 07/30/19 Attending physician: Pierre Roy MD Consults: 07/27/19 14:30 Consult Physician Routine Consulting Provider: Cristian Davenport Consult Reason/Comments: Bradycardia/CHF Do you want consulting provider notified?: Yes 07/28/19 11:10 Consult Physician Routine Consulting Provider: Damaris Davenport Consult Reason/Comments: dropping hgb Do you want consulting provider notified?: Yes Primary care physician: Gerri Isiah [facility] Course: This is an 79-year-old female patient of Dr. Moreno and Dr. Breen with past medical history of coronary artery disease status post angioplasty and stenting RCA with known critical stenosis in the LAD, hyperlipidemia, hypertension, paroxysmal atrial fibrillation, obstructive sleep apnea unable to tolerate CPAP but using home O2 at 2 L at bedtime, diabetes mellitus type 2, gastroesophageal reflux disease, morbid obesity status post lap banding and removal with subsequent gastric sleeve. Patient states that she has been feeling tired and short of breath that had been worsening over the past week. Shortness of breath is worsened with exertion. She does have some chest pressure associated with it as well. No fever or chills. Patient states that she has had a colonoscopy done by Dr. Martins at [facility] for removal of a polyp approximately 5 years ago. She denies any recent blood in her stool or tarriness to her stools. No diarrhea or constipation. No nausea vomiting. She denies any nonsteroidal anti-inflammatory use. She does have history of irritable bowel syndrome. Patient came into [facility] emergency center for evaluation. Chest x-ray showed mild CHF. EKG junctional bradycardia with nonspecific ST-T wave changes in the inferior and anterior leads at rate of 42. White blood cell 8.2, hemoglobin 8.8, platelet count 244. Sodium 137, potassium 4.6, BUN 17 and creatinine 0.9. Troponin 0.012, TSH is normal, BNP 5770. Hemoglobin in October of this year was 12.6. Patient has been admitted to the cardiac stepdown unit and cardiology consult completed. Patient is currently on IV Lasix at 40 mg every 8 hours, amlodipine added. Stool for occult blood is negative. TSH 0.511. ProBNP 5770, troponin 0.012. Repeat hemoglobin 7.9. Echocardiogram reveals EF of 50-55%, moderate mitral regurgitation, severe tricuspid regurgitation, severe pulmonary hypertension, RVSP 94.66. 07/29: Patient states that her breathing status is much improved today. We will transition IV Lasix to oral at 40 mg twice daily. Hemoglobin is 9.1, potassium 3.4 and replaced. Patient underwent upper endoscopy that revealed gastric sleeve surgery, mild antral gastritis with no evidence of peptic ulcer disease. Colonoscopy revealed 5 mm transverse colon polyp that was removed placed near polypectomy and moderate sigmoid diverticulosis. Recommendations to advance diet as tolerated and resume aspirin and Plavix today, start iron supplementation. If she has resisted iron deficiency anemia, will consider a small bowel capsule endoscopy as an outpatient. Plan will be to monitor patient overnight, recheck lab work and possible discharge tomorrow. 07/30: Patient has been afebrile, heart rate 87, blood pressure 151/66, pulse ox 94% on room air. WBC 7.9, hemoglobin 9.4, platelet count 266. Sodium 140, potassium 3.4, BUN 19 and creatinine 0.9. Pathology reports from EGD and colonoscopy are currently pending. Patient has been cleared for discharge by cardiology. Patient will be discharged home today in stable condition. Discharge diagnoses: 1. Shortness of breath and weakness secondary to acute diastolic heart failure exacerbation by anemia and bradycardia. 2. Junctional rhythm with heart rate in the 40s. Beta amirah on hold. 3. Anemia with possible chronic blood loss. 4. Paroxysmal atrial fibrillation, not on anticoagulation. Per cardiology poss ible watchman device candidate. 5. Hypertension. 6. Hyperlipidemia. 7. Coronary artery disease status post stenting of the RCA in October 2018. 8. Obstructive sleep apnea unable to tolerate CPAP, utilizing O2 at 2 L at bedtime. 9. Diabetes mellitus, diet controlled. 10. Gastroesophageal reflux disease. 11. Morbid obesity status post lap band and removal, gastric sleeve, stable. 12. COPD, not in exacerbation. 13. Recurrent depression. Discharge plan: home Impression and plan of care have been directed as dictated by the signing physician. Angie Castellon nurse practitioner acting as scribe for signing physician. Patient Condition at Discharge: Good Plan - Discharge Summary Discharge Rx Participant: No New Discharge Prescriptions: New Ferrous Sulfate [Iron (65 MG Elemental)] 325 mg PO BID-W/MEALS tab Furosemide [Lasix] 40 mg PO DAILY #30 tab amLODIPine [Norvasc] 10 mg PO DAILY #30 tab Continue Sertraline [Zoloft] 50 mg PO DAILY Multivitamins, Thera [Multivitamin (formulary)] 1 tab PO DAILY Cyanocobalamin [Vitamin B-12] 500 mcg PO DAILY Montelukast Sodium [Singulair] 10 mg PO HS Clopidogrel [Plavix] 75 mg PO DAILY #90 tab Nitroglycerin Sl Tabs [Nitrostat] 0.4 mg SUBLINGUAL Q5M PRN #25 tab PRN Reason: Chest Pain Magnesium Gluconate [Magonate] 500 mg PO DAILY ALPRAZolam [Xanax] 0.25 mg PO BID PRN PRN Reason: Anxiety Cholecalciferol (Vitamin D3) [Vitamin D3] 2,000 unit PO DAILY Budesonide [Pulmicort] 0.5 mg INHALATION RT-BID Albuterol Sulfate [Ventolin HFA] 1 - 2 puff INHALATION RT-Q6H PRN PRN Reason: Shortness Of Breath hydrALAZINE HCL [Apresoline] 100 mg PO TID Olmesartan Medoxomil [Benicar] 40 mg PO DAILY Atorvastatin [Lipitor] 80 mg PO HS Discontinued Metoprolol Tartrate [Lopressor] 25 mg PO BID #60 tablet Furosemide [Lasix] 20 mg PO MOWEFR Discharge Medication List Sertraline [Zoloft] 50 mg PO DAILY 08/17/14 [History] Cyanocobalamin [Vitamin B-12] 500 mcg PO DAILY 03/21/18 [History] Montelukast Sodium [Singulair] 10 mg PO HS 03/21/18 [History] Multivitamins, Thera [Multivitamin (formulary)] 1 tab PO DAILY 03/21/18 [History] Clopidogrel [Plavix] 75 mg PO DAILY #90 tab 11/04/18 [Rx] Nitroglycerin Sl Tabs [Nitrostat] 0.4 mg SUBLINGUAL Q5M PRN #25 tab 11/04/18 [Rx] Magnesium Gluconate [Magonate] 500 mg PO DAILY 01/29/19 [History] ALPRAZolam [Xanax] 0.25 mg PO BID PRN 02/08/19 [History] Albuterol Sulfate [Ventolin HFA] 1 - 2 puff INHALATION RT-Q6H PRN 07/27/19 [History] Atorvastatin [Lipitor] 80 mg PO HS 07/27/19 [History] Budesonide [Pulmicort] 0.5 mg INHALATION RT-BID 07/27/19 [History] Cholecalciferol (Vitamin D3) [Vitamin D3] 2,000 unit PO DAILY 07/27/19 [History] Olmesartan Medoxomil [Benicar] 40 mg PO DAILY 07/27/19 [History] hydrALAZINE HCL [Apresoline] 100 mg PO TID 07/27/19 [History] Ferrous Sulfate [Iron (65 MG Elemental)] 325 mg PO BID-W/MEALS tab 07/30/19 [Rx] Furosemide [Lasix] 40 mg PO DAILY #30 tab 07/30/19 [Rx] amLODIPine [Norvasc] 10 mg PO DAILY #30 tab 07/30/19 [Rx] Follow up Appointment(s)/Referral(s): Gerri Joyce MD [Primary Care Provider] - 1 Week (Spoke to glassie. Office will call with appointment time) Glenna Breen MD [STAFF PHYSICIAN] - 08/13/19 2:30 pm (Friday) Carey Carter PAC [REFERRING] - 08/11/19 8:30 am (Friday) Patient Instructions/Handouts: Heart Failure (DC), Bradycardia (DC), Anemia (DC) Activity/Diet/Wound Care/Special Instructions: CHF 1. Weigh yourself every morning after you urinate. If you gain 2-3 pounds overnight or 5 pounds in one week, call your primary physician for guidance on your medications. Keep a log of your weights. 2. Avoid salt, or foods with hidden salt. Extra salt makes your heart work harder and traps the fluid in your body for longer. 3. Take all of your medications as directed, especially your water pills. NEVER skip a dose. 4. Elevate your legs when you are not up moving around to help with circulation and prevent swelling. 5. Call your physician if you notice any extra swelling in your legs, ankles, feet or abdomen, if you have a new dry cough, if your shortness of breath worsens with activity or at rest, or if you feel more fatigued. Discharge Disposition: HOME SELF-CARE
== END 2019-07-30 13:03 | disposition home or self-care (01) | DRG 292 ==
LOC: EC 12:22 → 3SCARD 14:16 → OBSVTOIN 07-29 11:36
PROVIDERS: ADMIT Internal Medicine; ATTEND Internal Medicine
PROC: 0DB78ZX Excision of Stomach, Pylorus, Via Natural or Artificial Opening Endoscopic, Diagnostic (ICD-10-PCS; principal; 2019-07-29 07:30)
PROC: 0DBL8ZX Excision of Transverse Colon, Via Natural or Artificial Opening Endoscopic, Diagnostic (ICD-10-PCS; 2019-07-29 07:30)
DX: I11.0 Hypertensive heart disease with heart failure (principal); F33.9 Major depressive disorder, recurrent, unspecified; I50.33 Acute on chronic diastolic (congestive) heart failure; I27.20 Pulmonary hypertension, unspecified; J44.9 Chronic obstructive pulmonary disease, unspecified; E11.42 Type 2 diabetes mellitus with diabetic polyneuropathy; E66.01 Morbid (severe) obesity due to excess calories; I08.1 Rheumatic disorders of both mitral and tricuspid valves; R00.1 Bradycardia, unspecified; I42.9 Cardiomyopathy, unspecified; D50.0 Iron deficiency anemia secondary to blood loss (chronic); E11.9 Type 2 diabetes mellitus without complications; E78.5 Hyperlipidemia, unspecified; G47.33 Obstructive sleep apnea (adult) (pediatric); I25.10 Atherosclerotic heart disease of native coronary artery without angina pectoris; I25.2 Old myocardial infarction; I48.0 Paroxysmal atrial fibrillation; K21.9 Gastro-esophageal reflux disease without esophagitis; K29.70 Gastritis, unspecified, without bleeding; K57.30 Diverticulosis of large intestine without perforation or abscess without bleeding; K63.5 Polyp of colon; M19.90 Unspecified osteoarthritis, unspecified site; F41.9 Anxiety disorder, unspecified; K58.9 Irritable bowel syndrome, unspecified; L40.9 Psoriasis, unspecified; Z79.02 Long term (current) use of antithrombotics/antiplatelets; Z79.51 Long term (current) use of inhaled steroids; Z79.82 Long term (current) use of aspirin; Z79.84 Long term (current) use of oral hypoglycemic drugs; Z79.899 Other long term (current) drug therapy; Z87.01 Personal history of pneumonia (recurrent); Z88.2 Allergy status to sulfonamides; Z88.8 Allergy status to other drugs, medicaments and biological substances; Z86.19 Personal history of other infectious and parasitic diseases; Z87.891 Personal history of nicotine dependence; Z90.710 Acquired absence of both cervix and uterus; Z95.5 Presence of coronary angioplasty implant and graft; Z98.42 Cataract extraction status, left eye; Z98.41 Cataract extraction status, right eye; Z96.1 Presence of intraocular lens; Z90.49 Acquired absence of other specified parts of digestive tract; Z98.84 Bariatric surgery status; Z80.1 Family history of malignant neoplasm of trachea, bronchus and lung; Z80.2 Family history of malignant neoplasm of other respiratory and intrathoracic organs; Z82.49 Family history of ischemic heart disease and other diseases of the circulatory system
CPT/HCPCS: 36415; 43239; 45385; 71046; 80048; 80053; 82272; 83540; 83550; 83735; 83880; 84439; 84443; 84481; 84484; 85025; 85027; 85610; 85730; 88305; 90686; 93005; 93306; 94640; 94760; 96374; 96375; 99285

== ENCOUNTER → 2020-07-11 | Outpatient (CLI) | payer MEDICARE, OTHER ==
[2020-07-11 12:33] LABS: Basophils % (A) 0 %; Eosinophils # (A) 0.1 k/uL (0-0.7); Eosinophils % (A) 2 %; HCT 40.5 % (34.0-46.0); HGB 12.8 gm/dL (11.4-16.0); Lymphocytes # (A) 2.5 k/uL (1.0-4.8); Lymphocytes % (A) 30 %; MCHC 31.5 g/dL (31.0-37.0); Mean Platelet Volume 7.7; Monocytes # (A) 0.5 k/uL (0-1.0); Monocytes % (A) 5 %; Neutrophils # (A) 5.1 k/uL (1.3-7.7); Neutrophils % (A) 61 %; Platelet Count 220 k/uL (150-450); RDW 14.4 % (11.5-15.5); WBC 8.4 k/uL (3.8-10.6)
[2020-07-11 22:27] LABS: African American GFR (CKD) 54.5 (60.0-200.0); Albumin 4.3 g/dL (3.80-4.90); Albumin/Globulin Ratio 1.79 (1.60-3.17); Anion Gap 11.2 mmol/L (4.00-12.00); BUN/Creat Ratio 18.18 Ratio (12.00-20.00); Calcium 9.2 mg/dL (8.7-10.3); Carbon Dioxide 27.8 mmol/L (21.6-31.8); Globulin 2.4 g/dL (1.6-3.3); Potassium 3.4 mmol/L (3.5-5.5); Total Bilirubin 0.5 mg/dL (0.2-1.2); Total Protein 6.7 g/dL (6.2-8.2)
== END | disposition home or self-care (01) ==
LOC: LABWHC1 11:34
PROVIDERS: ATTEND Family Medicine
DX: E86.0 Dehydration (principal); R19.7 Diarrhea, unspecified; A04.72 Enterocolitis due to Clostridium difficile, not specified as recurrent
CPT/HCPCS: 80053; 85025; 87324; 87045; 87329; 87328; 87046; 36415; U0003; C9803

== ENCOUNTER 2021-09-06 12:00 | Inpatient (IN) | payer MEDICARE, OTHER ==
[2021-09-06] MEDS ORDERED: NITROGLYCERIN OINT 1 INCH/GM PACKET TOPICAL STA (12:42)
--- NOTE | 2021-09-06 12:42 | ED ---
Chest Pain HPI - General Chief Complaint: Chest Pain Stated Complaint: Chest pain Time Seen by Provider: 09/06/21 12:25 Source: patient, RN notes reviewed Mode of arrival: ambulatory Limitations: no limitations - History of Present Illness Initial Comments: 81-year-old female presents with complaints of anterior chest pain started earlier today. States it was 6/10 severity he chest heaviness some radiation to the back. No nausea no vomiting fevers chills sweats no palpitations or other symptoms. She took nitroglycerin at home which should resolve the pain. Of note she was recently in indication of a [facility] and had a chest pain evaluation of that time. Echocardiogram was performed did show evidence of mitral regurg and slight tricuspid regurg.. No other current complaints or modifying factors patient states she does feel better but still has some slight heaviness and anterior chest. MD Complaint: chest pain - Related Data Home Medications Medication Instructions Recorded Confirmed Sertraline [Zoloft] 50 mg PO DAILY 08/17/14 09/06/21 Cyanocobalamin [Vitamin B-12] 500 mcg PO DAILY 03/21/18 09/06/21 Montelukast Sodium [Singulair] 10 mg PO HS 03/21/18 09/06/21 Multivitamins, Thera [Multivitamin 1 tab PO DAILY 03/21/18 09/06/21 (formulary)] ALPRAZolam [Xanax] 0.25 mg PO DAILY PRN 02/08/19 09/06/21 Atorvastatin [Lipitor] 80 mg PO DAILY 07/27/19 09/06/21 Budesonide [Pulmicort] 0.5 mg INHALATION RT-BID 07/27/19 09/06/21 Albuterol Inhaler [Ventolin Hfa 1 puff INHALATION RT-Q4H PRN 09/06/21 09/06/21 Inhaler] Aspirin EC [Ecotrin Low Dose] 81 mg PO DAILY 09/06/21 09/06/21 Cholecalciferol [Vitamin D3 (25 25 mcg PO DAILY 09/06/21 09/06/21 Mcg = 1000 Iu)] Fluticasone Nasal [place] [Flonase 1 spray EA NOSTRIL DAILY 09/06/21 09/06/21 Nasal [place]] Furosemide [Lasix] 20 mg PO DAILY 09/06/21 09/06/21 Furosemide [Lasix] 40 mg PO HS 09/06/21 09/06/21 Ibgard 2 tab PO DAILY 09/06/21 09/06/21 Loratadine [Claritin] 10 mg PO DAILY 09/06/21 09/06/21 Metoprolol Tartrate [Lopressor] 12.5 mg PO BID 09/06/21 09/06/21 Omeprazole 20 mg PO DAILY 09/06/21 09/06/21 Potassium Chloride ER [K-Dur 20] 20 meq PO DAILY 09/06/21 09/06/21 metFORMIN HCL 500 mg PO DAILY 09/06/21 09/06/21 Previous Rx's Medication Instructions Recorded Nitroglycerin Sl Tabs [Nitrostat] 0.4 mg SUBLINGUAL Q5M PRN #25 tab 11/04/18 amLODIPine [Norvasc] 10 mg PO DAILY #30 tab 07/30/19 Allergies Allergy/AdvReac Type Severity Reaction Status Date / Time Sulfa (Sulfonamide Allergy Unknown Verified 09/06/21 13:47 Antibiotics) Childhood heparin AdvReac bloody nose Verified 09/06/21 13:47 Review of Systems ROS Statement: Those systems with pertinent positive or pertinent negative responses have been documented in the HPI. ROS Other: All systems not noted in ROS Statement are negative. Past Medical History Past Medical History: Atrial Fibrillation, Asthma, Coronary Artery Disease (CAD), COPD, Diabetes Mellitus, GERD/Reflux, Hyperlipidemia, Hypertension, Myocardial Infarction (MS), Osteoarthritis (OA), Pneumonia, Skin Disorder, Sleep Apnea/CPAP/BIPAP Additional Past Medical History / Comment(s): Afib RVR/junctional rhythm that resolved, R femoral AV fistula after cardiac cath that resolved, ABBEY-cannot tolerate Cpap, home oxygen at 2L/NC at HS only, single R upper lobe pulmonary nodule being monitored, silent MS per pt, cardiomyopathy, circumflex occluded, mitral regurg, tricuspid regurg, NIDDM type II, neuropathy bilateral feet, 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 Last Myocardial Infarction Date:: unknown-"silent" History of Any Multi-Drug Resistant Organisms: None Reported Past Surgical History: Bariatric Surgery, Breast Surgery, Cholecystectomy, Heart Catheterization With Stent, Hysterectomy Additional Past Surgical History / Comment(s): 1988 Cardiac cath, 2/8/19 PCI with stents to RCA, lap banding since removed then gastric sleeve, EGD/colonoscopies, R benign breast biopsy, R mastoid process osteomylitis with surgery, brain surgery with 2 titanium screws d/t CSF leak from R ear, bilateral cataract removals/lens implants, epidural pain injections, sinus surgery. Past Anesthesia/Blood Transfusion Reactions: No Reported Reaction Additional Past Anesthesia/Blood Transfusion Reaction / Comment(s): Pt has received blood in past without reaction. Date of Last Stent Placement:: 11/03/18 Past Psychological History: Anxiety, Depression Smoking Status: Former smoker Past Alcohol Use History: None Reported Past Drug Use History: None Reported - Past Family History Brother(s) Family Medical History: Cancer Additional Family Medical History / Comment(s): The patient has a total of 2 full brothers one has history of non-Hodgkin's lymphoma. One has from coronary artery disease and drug abuse. Patient has 6 1/2 brothers all had cancer mostly lung cancer and one had laryngeal cancer. Father Family Medical History: Myocardial Infarction (MS) Additional Family Medical History / Comment(s): Father of a MS at the age of 44yrs. Mother Family Medical History: No Reported History Additional Family Medical History / Comment(s): Mother at age 67 from a motor vehicle accident. General Exam - General Exam Comments Initial Comments: This is a well-developed well-nourished awake alert oriented 3 female Limitations: no limitations General appearance: alert, in no apparent distress Head exam: Present: atraumatic, normocephalic, normal inspection Eye exam: Present: normal appearance, PERRL, EOMI. Absent: scleral icterus, conjunctival injection, periorbital swelling ENT exam: Present: normal exam, mucous membranes moist Neck exam: Present: normal inspection. Absent: tenderness, meningismus, lymphadenopathy Respiratory exam: Present: normal lung sounds bilaterally. Absent: respiratory distress, wheezes, rales, rhonchi, stridor Cardiovascular Exam: Present: regular rate, normal rhythm, systolic murmur. Absent: diastolic murmur, rubs, gallop, clicks GI/Abdominal exam: Present: soft, normal bowel sounds. Absent: distended, tenderness, guarding, rebound, rigid, bruit, pulsatile mass Extremities exam: Present: normal inspection, full ROM, normal capillary refill. Absent: tenderness, pedal edema, joint swelling, calf tenderness Back exam: Present: normal inspection Neurological exam: Present: alert, oriented X3, CN II-XII intact Psychiatric exam: Present: normal affect, normal mood Skin exam: Present: warm, dry, intact, normal color. Absent: rash Course Vital Signs 09/06/21 12:12 Temperature 98.1 F Pulse Rate 62 Respiratory 16 Rate Blood Pressure 207/70 O2 Sat by Pulse 96 Oximetry Chest Pain MDM - MDM I did discuss findings with the patient and family as well as with Dr. Roy. Patient will be admitted with cardiology consultation the patient does see Dr. Breen Disposition Clinical Impression: Unstable angina pectoris, Chest pain Disposition: ADMITTED IP TO THIS HOSP Condition: Stable Referrals: Gerri Joyce MD [Primary Care Provider] - 1-2 days
[2021-09-06 12:55] LABS: Basophils % (A) 0 %; Eosinophils # (A) 0.2 k/uL (0-0.7); Eosinophils % (A) 2 %; HGB 12.5 gm/dL (11.4-16.0); Hypochromasia Slight; Lymphocytes % (A) 28 %; MCH 26.2 pg (25.0-35.0); MCHC 31.3 g/dL (31.0-37.0); MCV 83.8 fL (80.0-100.0); Mean Platelet Volume 8.1; Monocytes # (A) 0.5 k/uL (0-1.0); Monocytes % (A) 5 %; Neutrophils # (A) 6.9 k/uL (1.3-7.7); Neutrophils % (A) 64 %; Platelet Count 217 k/uL (150-450); RBC 4.78 m/uL (3.80-5.40); RDW 15.4 % (11.5-15.5); WBC 10.9 k/uL (3.8-10.6)
[2021-09-06 13:09] LABS: Partial Thromboplastin Time 21.9 sec (22.0-30.0); Prothrombin Time 11.1 sec (9.0-12.0)
[2021-09-06 13:15] LABS: ALT 17 U/L (4-34); AST 24 U/L (14-36); African American GFR (CKD) >90 (>60 ml/min/1.73 sqM); Albumin 4.4 g/dL (3.5-5.0); Alkaline Phosphatase 91 U/L (38-126); Anion Gap 12 mmol/L; Blood Urea Nitrogen 13 mg/dL (7-17); Calcium 9.6 mg/dL (8.4-10.2); Carbon Dioxide 24 mmol/L (22-30); Chloride 105 mmol/L (98-107); Glucose 125 mg/dL (74-99); Lipase 59 U/L (23-300); Non-African American GFR(CKD) 82 (>60 ml/min/1.73 sqM); Potassium 3.8 mmol/L (3.5-5.1); Sodium 141 mmol/L (137-145); Total Bilirubin 0.6 mg/dL (0.2-1.3); Total Protein 7.7 g/dL (6.3-8.2)
--- NOTE | 2021-09-06 13:19 | XR ---
EXAMINATION TYPE: XR chest 2V DATE OF EXAM: 09/06/2021 COMPARISON: Chest x-ray 07/27/2019 HISTORY: Chest pain TECHNIQUE: Frontal and lateral views of the chest are obtained. FINDINGS: There is no focal air space opacity, pleural effusion, or pneumothorax seen. The cardiac silhouette size is within normal limits. There are overlying leads. Some minimal bandlike density at the right costophrenic angle may reflect atelectasis or scarring. The aorta is dense. The osseous st ructures are intact, there is thoracic spondylosis. IMPRESSION: There may be some minimal basilar atelectasis or scar
[2021-09-06] MEDS ORDERED: NITROGLYCERIN SL TABS 0.4 MG TAB SUBLINGUAL PRN (14:12)
[2021-09-06] MEDS ORDERED: HEPARIN SODIUM 1,000 UN/ML (10ML VL) IV ONE (14:12)
[2021-09-06] MEDS ORDERED: ALPRAZolam 0.25 MG TAB PO PRN (14:15)
[2021-09-06] MEDS ORDERED: ALBUTEROL HFA INHALER INHALATION PRN (14:15)
[2021-09-06] MEDS ORDERED: ACETAMINOPHEN TAB 325 MG TAB PO PRN (15:44)
[2021-09-06] MEDS ORDERED: ONDANSETRON 4 MG/2 ML VIAL IVP PRN (15:44)
[2021-09-06] MEDS ORDERED: MORPHINE SULFATE 4 MG/ML SYRINGE IVP PRN (15:44)
--- NOTE | 2021-09-06 16:06 | P.HPIM ---
History of Present Illness H&P Date: 09/06/21 This is an 81-year-old female patient of Dr. Joyce and Dr. Breen with past medical history of coronary artery disease status post angioplasty and stenting RCA with known critical stenosis in the LAD last intervention in October 2018, hyperlipidemia, hypertension, paroxysmal atrial fibrillation, obstructive sleep apnea unable to tolerate CPAP but using home O2 at 2 L at bedtime, diabetes mellitus type 2 diet controlled, gastroesophageal reflux disease, , IBS, morbid obesity status post lap banding and removal with subsequent gastric sleeve. Patient was last hospitalized in 2018 with acute diastolic heart failure with anemia and bradycardia. She was also noted to be in junctional rhythm on beta amirah was held at that time. Patient has been having on-and-off chest pain associated with increased tiredness for the past 10 days. She was admitted at [facility] for similar complaints one week ago. Her medications were readjusted with the addition of metoprolol and metformin. Norvasc was discontinued. Posthospitalization patient had a follow-up visit with Dr. Warren of admission is found to have sinus bradycardia with first-degree heart block. Metoprolol was reduced to 12.5 twice a day. Patient comes in to [facility] today with the acute substernal chest pressure associated with tingling involving upper and lower extremity. Patient took a nitro tablet at home with minimal improvement of pain on arrival to the ER. Nitrol ointment was placed and patient had relief of her symptoms. She has noticed increased sleepiness and tiredness associated with the cough with phlegm production the past week. Patient noted she is wheezy and short of breath. Vitals are reviewed patient is afebrile pulse of 59, respiratory rate 18 blood pressure 207/70 his oxygenation 96% on room air Chest x-ray obtained shows minimal basilar atelectasis or scar no other focal airspace opacity of pleural effusion or pneumothorax noted. ROS Constitutional: Denies chills, Denies fever, endorses lethargy, endorses s malaise, Denies poor appetite, enorses weakness, Denies weight loss Eyes: denies decreased vision, denies diplopia, denies discharge, denies pain Ears: deny: decreased hearing Ears, nose, mouth and throat: Denies dental pain, Denies headache, Denies nasal discharge, Denies nose pain Cardiovascular: Endorses chest pain, Denies decreased exercise tolerance, Denies edema, Denies high blood pressure, Denies irregular heart beat, Denies palpitations, Denies paroxysmal nocturnal dyspnea, Denies rapid heart beat, De nies shortness of breath Respiratory: Endorses congestion, endorses cough, endorses cough with sputum, endorses dyspnea, endorses home oxygen, endorses wheezing Gastrointestinal: Denies abdominal pain, Denies change in bowel habits, Denies coffee ground emesis, Denies early satiety, Denies excessive gas, Denies heartburn, Denies hematemesis, Denies hematochezia, Denies loss of appetite, Denies nausea, Denies vomiting Genitourinary: Denies dysuria, Denies flank pain, Denies kidney stones, Denies menorrhagia, Denies urgency, Denies urinary frequency Musculoskeletal: Denies gait dysfunction, Denies limitation of motion, Denies morning stiffness, Denies muscle cramps Integumentary: Denies rash, Denies wounds, Denies brittle nails, Denies change in hair/nails, Denies darkening of skin Neurological: Denies balance difficulties, Denies change in speech, Denies double vision, Denies gait dysfunction, Denies loss of vision, Denies motor disturbance, Denies numbness, Denies paralysis, Denies paresthesias, Denies seizures Psychiatric: Denies anxiety, Denies depression Endocrine: Denies excessive sweating, Denies excessive thirst, Denies high blood sugars, Denies palpitations Hematologic/Lymphatic: Denies easy bruising, Denies lymphadenopathy Social history Patient quit 30 years ago, used to smoke more than one pack a day for 42 years No alcohol use No illicit drug use Family history Mother at 67 from motor vehicle accident father in at 44 from cardiac arrest Has 8 siblings with multiple brothers Brother with history of heart disease hypertension, one brother has non-Hodgkin lymphoma,2 full brothers one has history of non-Hodgkin's lymphoma. One has from coronary artery disease and drug abuse. Patient has 6 1/2 brothers all had cancer mostly lung cancer and one had laryngeal cancer. One sister with bladder cancer 2 daughters, one daughter has coronary artery disease Physical exam - Constitutional General appearance: cooperative, no acute distress, obese - EENT Eyes: anicteric sclerae, PERRLA, normal appearance ENT: hearing grossly normal - Neck Neck: no lymphadenopathy, normal ROM, no other, no rigidity, no stridor, no thyromegaly - Respiratory Respiratory: bilateral: decreased air entry with mild wheezing - Cardiovascular Rhythm: regular Heart sounds: normal: S1, S2 Abnormal Heart Sounds 4/6 systolic murmur, no diastolic murmur, no rub, no S3 Gallop, no S4 Gallop, no click, no other nonreproducible - Gastrointestinal General gastrointestinal: normal bowel sounds, soft nontender - Integumentary Integumentary: no rash - Neurologic Neurologic: CNII-XII intact - Musculoskeletal Musculoskeletal: gait normal, strength equal bilaterally - Psychiatric Psychiatric: A&O x's 3, appropriate affect Assessment and plan Acute substernal chest pain Coronary artery disease status post stenting in the RCA 2018 - Rule out ACS - Significant history of coronary artery disease with previous history of smoking, last stent in 2019 -Cardiology consulted -EKG positive for T-wave inversions including anteriorly's and inferior leads and Q waves noted in V3 and interior leads with multiple PVCs -Troponin 2 negative Sinus bradycardia with history of junctional rhythm -Metoprolol has previously been discontinued due to history of junctional rhythm metoprolol reduced to 12.5 twice a day by primary care physician - Continue continue to monitor on telemetry for blocks - Magnesium normal Hypertension urgency -Metoprolol 12.5 twice a day Norvasc was discontinued in the last hospitalization at [facility] -Continue Lasix 40 mg daily at bedtime and 20 mg daily - Hydralazine initiated at 50 mg 3 times a day - We will review records of the patient including echocardiogram and see if that would indicate indicate ischemic cardiomyopathy - Cardiology consulted Acute bronchitis/COPD exacerbation -Rocephin 1 g every 24 hours - DuoNeb as needed for shortness of breath - Prednisone 40 mg by mouth daily Hypersomnia -Patient has obstructive sleep apnea but does not wear her CPAP - No CO2 retention Type 2 diabetes, controlled Hold metformin before meals at bedtime glucose checks and insulin sliding scale HbA1c ordered and Hyperlipidemia Continue atorvastatin 80 mg by mouth daily Anxiety/depression Continue Xanax 0.25 mg by mouth daily Zoloft 50 mg by mouth daily Asthma/COPD Continue DuoNeb as needed for shortness of breath Continue Pulmicort twice daily Paroxysmal atrial fibrillation currently sinus rhythm not on any anticoagulation Obstructive sleep apnea -Does not wear CPAP utilizing oxygen at 2 L at baseline GERD On Protonix Morbid obesity status post lap band and removal gastric sleeve, stable with Dr. Gilbert DVT prophylaxis On heparin drip Patient need to be in the hospital for at least overnight stays Past Medical History Past Medical History: Atrial Fibrillation, Asthma, Coronary Artery Disease (CAD), COPD, Diabetes Mellitus, GERD/Reflux, Hyperlipidemia, Hypertension, Myocardial Infarction ([place]), Osteoarthritis (OA), Pneumonia, Skin Disorder, Sleep Apnea/CPAP/BIPAP Additional Past Medical History / Comment(s): Afib RVR/junctional rhythm that resolved, R femoral AV fistula after cardiac cath that resolved, ABBEY-cannot tolerate Cpap, home oxygen at 2L/NC at HS only, single R upper lobe pulmonary n odule being monitored, silent [place] per pt, cardiomyopathy, circumflex occluded, mitral regurg, tricuspid regurg, NIDDM type II, neuropathy bilateral feet, 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 Last Myocardial Infarction Date:: unknown-"silent" History of Any Multi-Drug Resistant Organisms: None Reported Past Surgical History: Bariatric Surgery, Breast Surgery, Cholecystectomy, Heart Catheterization With Stent, Hysterectomy Additional Past Surgical History / Comment(s): 1988 Cardiac cath, 11/06/18 PCI with stents to RCA, lap banding since removed then gastric sleeve, EGD/colonoscopies, R benign breast biopsy, R mastoid process osteomylitis with surgery, brain surgery with 2 titanium screws d/t CSF leak from R ear, bilateral cataract removals/lens implants, epidural pain injections, sinus surgery. Past Anesthesia/Blood Transfusion Reactions: No Reported Reaction Additional Past Anesthesia/Blood Transfusion Reaction / Comment(s): Pt has received blood in past without reaction. Date of Last Stent Placement:: 11/03/18 Past Psychological History: Anxiety, Depression Smoking Status: Former smoker Past Alcohol Use History: None Reported Past Drug Use History: None Reported - Past Family History Brother(s) Family Medical History: Cancer Additional Family Medical History / Comment(s): The patient has a total of 2 full brothers one has history of non-Hodgkin's lymphoma. One has from coronary artery disease and drug abuse. Patient has 6 1/2 brothers all had cancer mostly lung cancer and one had laryngeal cancer. Father Family Medical History: Myocardial Infarction ([place]) Additional Family Medical History / Comment(s): Father of a [place] at the age of 44yrs. Mother Family Medical History: No Reported History Additional Family Medical History / Comment(s): Mother at age 67 from a motor vehicle accident. Medications and Allergies Home Medications Medication Instructions Recorded Confirmed Type Sertraline [Zoloft] 50 mg PO DAILY 08/17/14 09/06/21 History Cyanocobalamin [Vitamin B-12] 500 mcg PO DAILY 03/21/18 09/06/21 History Montelukast Sodium [Singulair] 10 mg PO HS 03/21/18 09/06/21 History Multivitamins, Thera [Multivitamin 1 tab PO DAILY 03/21/18 09/06/21 History (formulary)] Nitroglycerin Sl Tabs [Nitrostat] 0.4 mg SUBLINGUAL Q5M PRN #25 tab 11/04/18 09/06/21 Rx ALPRAZolam [Xanax] 0.25 mg PO DAILY PRN 02/08/19 09/06/21 History Atorvastatin [Lipitor] 80 mg PO DAILY 07/27/19 09/06/21 History Budesonide [Pulmicort] 0.5 mg INHALATION RT-BID 07/27/19 09/06/21 History amLODIPine [Norvasc] 10 mg PO DAILY #30 tab 07/30/19 09/06/21 Rx Albuterol Inhaler [Ventolin Hfa 1 puff INHALATION RT-Q4H PRN 09/06/21 09/06/21 History Inhaler] Aspirin EC [Ecotrin Low Dose] 81 mg PO DAILY 09/06/21 09/06/21 History Cholecalciferol [Vitamin D3 (25 25 mcg PO DAILY 09/06/21 09/06/21 History Mcg = 1000 Iu)] Fluticasone Nasal [place] [Flonase 1 spray EA NOSTRIL DAILY 09/06/21 09/06/21 History Nasal [place]] Furosemide [Lasix] 20 mg PO DAILY 09/06/21 09/06/21 History Furosemide [Lasix] 40 mg PO HS 09/06/21 09/06/21 History Ibgard 2 tab PO DAILY 09/06/21 09/06/21 History Loratadine [Claritin] 10 mg PO DAILY 09/06/21 09/06/21 History Metoprolol Tartrate [Lopressor] 12.5 mg PO BID 09/06/21 09/06/21 History Omeprazole 20 mg PO DAILY 09/06/21 09/06/21 History Potassium Chloride ER [K-Dur 20] 20 meq PO DAILY 09/06/21 09/06/21 History metFORMIN HCL 500 mg PO DAILY 09/06/21 09/06/21 History Allergies Allergy/AdvReac Type Severity Reaction Status Date / Time Sulfa (Sulfonamide Allergy Unknown Verified 09/06/21 13:47 Antibiotics) Childhood heparin AdvReac bloody nose Verified 09/06/21 13:47 Physical Exam Vitals: Vital Signs Temp Pulse Resp BP Pulse Ox 09/06/21 15:24 59 L 18 199/69 94 L 09/06/21 12:12 98.1 F 62 16 207/70 96 Intake and Output 09/06/21 09/06/21 09/06/21 06:59 14:59 22:59 Other: Weight 89.358 kg Results CBC & Chem 7: 09/06/21 12:31 09/06/21 12:31 Labs: Abnormal Lab Results - Last 24 Hours (Table) 09/06/21 09/06/21 09/06/21 Range/Units 12:31 12:31 12:31 WBC 10.9 H (3.8-10.6) k/uL APTT 21.9 L (22.0-30.0) sec Glucose 125 H (74-99) mg/dL
[2021-09-06 16:58] LABS: C Reactive Protein <0.5 mg/dL (<1.0)
[2021-09-06 19:52] LABS: Glucose,Whole Blood 138 mg/dL (75-99)
[2021-09-06] MEDS: predniSONE 20 MG TAB PO SCH (20:09)
[2021-09-06] MEDS: FUROSEMIDE 40 MG TAB PO SCH (20:09)
[2021-09-06] MEDS: HEPARIN SOD,PORK IN 0.45% NACL 25,000 UNIT in 0.45% NACL 1 250ML.BAG IV SCH (20:10)
[2021-09-06] MEDS: MONTELUKAST 10 MG TAB PO SCH (20:10)
[2021-09-06] MEDS: hydrALAZINE HCL 50 MG TAB PO SCH ×2 (20:10→22:37)
[2021-09-06] MEDS: guaiFENesin 600 MG TABLET.ER PO SCH (20:10)
[2021-09-06] MEDS: METOPROLOL TARTRATE 12.5 MG TAB PO SCH (20:10)
[2021-09-06] MEDS: INSULIN ASPART (NovoLOG) 100 UNIT/ML VIAL SQ SCH ×2 (20:14→22:36)
[2021-09-06] MEDS: NITROGLYCERIN OINT 1 INCH/GM PACKET TOPICAL SCH ×2 (20:14→23:38)
[2021-09-06] MEDS: BUDESONIDE 0.5 MG/2 ML NEBU INHALATION SCH (21:15)
[2021-09-06] MEDS: IPRATROPIUM-ALBUTEROL 3 ML NEB INHALATION PRN (21:15)
[2021-09-07] MEDS: NITROGLYCERIN OINT 1 INCH/GM PACKET TOPICAL SCH ×4 (05:42→23:26)
[2021-09-07 06:16] LABS: Glucose,Whole Blood 161 mg/dL (75-99)
[2021-09-07] MEDS: INSULIN ASPART (NovoLOG) 100 UNIT/ML VIAL SQ SCH ×4 (06:25→20:59)
[2021-09-07] MEDS ORDERED: HEPARIN SODIUM,PORCINE 2,500 UNIT in SODIUM CHLORIDE 0.9% 250 ML IRRIGATION PRN (07:00)
[2021-09-07] MEDS ORDERED: HEPARIN SODIUM,PORCINE 10,000 UNIT in SODIUM CHLORIDE 0.9% 1,000 ML IRRIGATION PRN (07:00)
[2021-09-07] MEDS ORDERED: PANTOPRAZOLE 40 MG TABLET PO SCH (07:30)
[2021-09-07] MEDS: BUDESONIDE 0.5 MG/2 ML NEBU INHALATION SCH ×2 (07:35→19:58)
[2021-09-07] MEDS: IPRATROPIUM-ALBUTEROL 3 ML NEB INHALATION PRN ×2 (07:35→16:13)
[2021-09-07] MEDS: ATORVASTATIN 80 MG TAB PO SCH (08:15)
[2021-09-07] MEDS: CHOLECALCIFEROL 25 MCG (1000 IU) TABLET PO SCH (08:16)
[2021-09-07] MEDS: FUROSEMIDE 20 MG TAB PO SCH (08:16)
[2021-09-07] MEDS: CYANOCOBALAMIN 500 MCG TAB PO SCH (08:16)
[2021-09-07] MEDS: METOPROLOL TARTRATE 12.5 MG TAB PO SCH ×2 (08:17→20:41)
[2021-09-07] MEDS: guaiFENesin 600 MG TABLET.ER PO SCH ×2 (08:17→20:42)
[2021-09-07] MEDS: MULTIVITAMINS, THERA 1 EACH TAB PO SCH (08:17)
[2021-09-07] MEDS: LORATADINE 10 MG TAB PO SCH (08:17)
[2021-09-07] MEDS: hydrALAZINE HCL 50 MG TAB PO SCH ×3 (08:17→20:40)
[2021-09-07] MEDS: POTASSIUM CHLORIDE ER 20 MEQ TAB.ER PO SCH (08:18)
[2021-09-07] MEDS: predniSONE 20 MG TAB PO SCH (08:18)
[2021-09-07] MEDS: SERTRALINE 50 MG TAB PO SCH (08:19)
[2021-09-07] MEDS ORDERED: HEPARIN SODIUM 1,000 UN/ML (10ML VL) IV PRN (08:39)
[2021-09-07] MEDS ORDERED: IBGARD PO SCH (09:00)
[2021-09-07] MEDS ORDERED: metFORMIN 500 MG TAB PO SCH (09:00)
[2021-09-07] MEDS ORDERED: amLODIPine 10 MG TAB PO SCH (09:00)
[2021-09-07] MEDS ORDERED: ASPIRIN 325 MG TAB PO SCH (09:00)
[2021-09-07] MEDS ORDERED: ASPIRIN 325 MG TAB PO STA (09:04)
[2021-09-07] MEDS ORDERED: ALPRAZolam 0.25 MG TAB PO PRN (09:04)
[2021-09-07] MEDS ORDERED: NITROGLYCERIN SL TABS 0.4 MG TAB SUBLINGUAL PRN (09:04)
[2021-09-07] MEDS ORDERED: ATORVASTATIN 80 MG TAB PO STA (09:04)
--- NOTE | 2021-09-07 10:00 | P.CRDCN ---
History of Present Illness Consult date: 09/07/21 History of present illness: HISTORY OF PRESENT ILLNESS: This is a 81-year-old female with a past medical history significant for paroxysmal atrial fibrillation with previous watchman procedure, hypertension, hyperlipidemia, and coronary artery disease with previous stenting to the RCA and known total occlusion of the circumflex. Patient follows in the office with Dr. Breen. We have been asked to see the patient in consultation for chest pain. Patient examined at the bedside in the emergency room. Patient presented to the emergency room with a chief complaint of chest pain. She states yesterday she was at home sitting down having coffee when she began to have chest pain. She describes pain as a heaviness that started in the middle of her chest and then spread across both sides of her chest. She reports associated shortness of breath. She does however report that she thinks she has bronchitis at this time. She denies any radiation of the pain to her extremities. Denies any nausea or vomiting. She states that she took a nitro at home with improvement in her chest pain. Patient also reports that she was at [facility] last week with the same complaints. She states she was treated with medications. She reports that she did not have a stress test or a heart catheterization at that time. This morning the patient continues to report chest discomfort and states it feels like a burning sensation across her chest. EKG reveals sinus mechanism with PVCs. T wave inversions in inferior leads. ST depression in lateral leads. Chest xray there may be some minimal basilar atelectasis or scarring Laboratory data: WBC 10.9. Hemoglobin 12.5. Platelet count 217. D-dimer 0.71. Sodium 141. Potassium 3.8. BUN 13. Creatinine 0.67. Troponin 0.012. 0.027. 0.044. 0.031. Current home cardiac medications include amlodipine 10 mg daily, metoprolol tartrate 25 mg twice a day, Lasix 40 mg at night and 20 mg in the morning, atorvastatin 80 mg daily, and aspirin 81 mg daily Most recent echocardiogram obtained in 2019 revealed ejection fraction 5055%, moderate mitral regurgitation, severe tricuspid regurgitation, severe pulmonary hypertension Cardiac catheterization history: 2019 revealing critical lesion involving the right coronary artery which is a new lesion. Chronically occluded circumflex. Mild disease involving the LAD. Patient underwent stent placement to the RCA. REVIEW OF SYSTEMS: At the time of my exam: CONSTITUTIONAL: Denies fever or chills. HEENT: Denies blurred vision, vision changes, or eye pain. Denies hemoptysis CARDIOVASCULAR: + chest pain. Denies orthopnea. Denies PND. Denies palpitations RESPIRATORY: + shortness of breath. GASTROINTESTINAL: Denies abdominal pain. Denies nausea or vomiting. HEMATOLOGIC: Denies bleeding disorders. GENITOURINARY: Denies any blood in urine. SKIN: Denies pruitis. Denies rash. PHYSICAL EXAM: VITAL SIGNS: Reviewed. GENERAL: Well-developed in no acute distress. HEENT: Head is normocephalic. Pupils are equal, round. Sclerae anicteric. Mucous membranes of the mouth are moist. Neck supple. No JVD or thyromegaly LUNGS: Respirations even and unlabored. Lungs diminished to auscultation bilaterally. HEART: Regular rate and rhythm. S1 and S2 heard. Systolic murmur noted. ABDOMEN: Soft. Nondistended. Nontender. EXTREMITIES: Normal range of motion. No clubbing or cyanosis. Peripheral pulses intact. No lower extremity edema NEUROLOGIC: Awake and alert. Oriented x 3. ASSESSMENT: Unstable angina Coronary artery disease with previous PCI to RCA and chronically occluded circumflex Paroxysmal atrial fibrillation, not on anticoagulation, with history of watchman procedure Hypertension Hyperlipidemia Diabetes COPD Bronchitis Obstructive sleep apnea Valvular heart disease PLAN: Patient had a recent echo at [facility]. However, with her ongoing chest pain and abnormal troponin, we will obtain repeat 2D echo to assess cardiac structure and function. Continue IV heparin Add aspirin 81 mg daily Continue atorvastatin 80 mg daily Continue additional cardiac medications Add lisinopril 10 mg daily for optimal blood pressure control Patient to undergo cardiac catheterization today with Dr. Steward Further recommendations pending patient course Nurse practitioner note has been reviewed by physician. Signing provider agrees with the documented findings, assessment, and plan of care. Past Medical History Past Medical History: Atrial Fibrillation, Asthma, Coronary Artery Disease (CAD), COPD, Diabetes Mellitus, GERD/Reflux, Hyperlipidemia, Hypertension, Myocardial Infarction (AR), Osteoarthritis (OA), Pneumonia, Skin Disorder, Sleep Apnea/CPAP/BIPAP Additional Past Medical History / Comment(s): Afib RVR/junctional rhythm that resolved, R femoral AV fistula after cardiac cath that resolved, ABBEY-cannot tolerate Cpap, home oxygen at 2L/NC at HS only, single R upper lobe pulmonary nodule being monitored, silent AR per pt, cardiomyopathy, circumflex occluded, mitral regurg, tricuspid regurg, NIDDM type II, neuropathy bilateral feet, 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 Last Myocardial Infarction Date:: unknown-"silent" History of Any Multi-Drug Resistant Organisms: None Reported Past Surgical History: Bariatric Surgery, Breast Surgery, Cholecystectomy, Heart Catheterization With Stent, Hysterectomy Additional Past Surgical History / Comment(s): 1988 Cardiac cath, 11/06/18 PCI with stents to RCA, lap banding since removed then gastric sleeve, EGD/colonoscopies, R benign breast biopsy, R mastoid process osteomylitis with surgery, brain surgery with 2 titanium screws d/t CSF leak from R ear, bilateral cataract removals/lens implants, epidural pain injections, sinus surgery. Past Anesthesia/Blood Transfusion Reactions: No Reported Reaction Additional Past Anesthesia/Blood Transfusion Reaction / Comment(s): Pt has received blood in past without reaction. Date of Last Stent Placement:: 11/03/18 Past Psychological History: Anxiety, Depression Additional Psychological History / Comment(s): Pt resides with her 2 sisters. She has a cane, walker and a wheelchair. She drives. She has home oxygen that she wears at night-2L/NC. She has a nebulizer. Smoking Status: Former smoker Past Alcohol Use History: None Reported Additional Past Alcohol Use History / Comment(s): Patient was a smoker of one and half packs per day for 42 years quit in 1993. She denies any marijuana or street drug use. She drinks alcohol occasionally. She has home O2 at 2 L nasal cannula obstructive sleep apnea. Past Drug Use History: None Reported - Past Family History Brother(s) Family Medical History: Cancer Additional Family Medical History / Comment(s): The patient has a total of 2 full brothers one has history of non-Hodgkin's lymphoma. One has from coronary artery disease and drug abuse. Patient has 6 1/2 brothers all had cancer mostly lung cancer and one had laryngeal cancer. Father Family Medical History: Myocardial Infarction (AR) Additional Family Medical History / Comment(s): Father of a AR at the age of 44yrs. Mother Family Medical History: No Reported History Additional Family Medical History / Comment(s): Mother at age 67 from a motor vehicle accident. Medications and Allergies Home Medications Medication Instructions Recorded Confirmed Type Sertraline [Zoloft] 50 mg PO DAILY 08/17/14 09/06/21 History Cyanocobalamin [Vitamin B-12] 500 mcg PO DAILY 03/21/18 09/06/21 History Montelukast Sodium [Singulair] 10 mg PO HS 03/21/18 09/06/21 History Multivitamins, Thera [Multivitamin 1 tab PO DAILY 03/21/18 09/06/21 History (formulary)] Nitroglycerin Sl Tabs [Nitrostat] 0.4 mg SUBLINGUAL Q5M PRN #25 tab 11/04/18 09/06/21 Rx ALPRAZolam [Xanax] 0.25 mg PO DAILY PRN 02/08/19 09/06/21 History Atorvastatin [Lipitor] 80 mg PO DAILY 07/27/19 09/06/21 History Budesonide [Pulmicort] 0.5 mg INHALATION RT-BID 07/27/19 09/06/21 History amLODIPine [Norvasc] 10 mg PO DAILY #30 tab 07/30/19 09/06/21 Rx Albuterol Inhaler [Ventolin Hfa 1 puff INHALATION RT-Q4H PRN 09/06/21 09/06/21 History Inhaler] Aspirin EC [Ecotrin Low Dose] 81 mg PO DAILY 09/06/21 09/06/21 History Cholecalciferol [Vitamin D3 (25 25 mcg PO DAILY 09/06/21 09/06/21 History Mcg = 1000 Iu)] Fluticasone Nasal [place] [Flonase 1 spray EA NOSTRIL DAILY 09/06/21 09/06/21 History Nasal [place]] Furosemide [Lasix] 20 mg PO DAILY 09/06/21 09/06/21 History Furosemide [Lasix] 40 mg PO HS 09/06/21 09/06/21 History Ibgard 2 tab PO DAILY 09/06/21 09/06/21 History Loratadine [Claritin] 10 mg PO DAILY 09/06/21 09/06/21 History Metoprolol Tartrate [Lopressor] 12.5 mg PO BID 09/06/21 09/06/21 History Omeprazole 20 mg PO DAILY 09/06/21 09/06/21 History Potassium Chloride ER [K-Dur 20] 20 meq PO DAILY 09/06/21 09/06/21 History metFORMIN HCL 500 mg PO DAILY 09/06/21 09/06/21 History Allergies Allergy/AdvReac Type Severity Reaction Status Date / Time Sulfa (Sulfonamide Allergy Unknown Verified 09/06/21 13:47 Antibiotics) Childhood heparin AdvReac bloody nose Verified 09/06/21 13:47 Physical Exam Vitals: Vital Signs Temp Pulse Pulse Resp BP BP Pulse Ox 09/07/21 07:53 60 09/07/21 07:38 58 L 09/07/21 04:00 98.0 F 53 L 18 163/58 95 09/07/21 01:26 55 L 17 09/07/21 00:00 97.9 F 55 L 16 143/50 92 L 09/06/21 21:32 58 L 09/06/21 21:15 56 L 09/06/21 20:00 98.0 F 52 L 18 170/66 94 L 09/06/21 19:18 58 L 18 169/74 95 09/06/21 17:27 62 18 154/55 09/06/21 15:24 59 L 18 199/69 94 L 09/06/21 12:12 98.1 F 62 16 207/70 96 Intake and Output 09/06/21 09/07/21 09/07/21 22:59 06:59 14:59 Intake Total 610 125.654 Balance 610 125.654 Intake: Intake, IV Titration 130 125.654 Amount Heparin Sod,Pork in 0.45% 30 125.654 NaCl 25,000 unit In 0.45 % NaCl 1 250ml.bag @ 11. 19 UNITS/KG/HR 9.999 mls/ hr IV .Q24H DESIRE Rx#: [id number] cefTRIAXone 1 gm In 100 Sodium Chloride 0.9% 50 ml @ 100 mls/hr IVPB Q24H DESIRE Rx#:[id number] Oral 480 Other: # Voids 1 Weight 89.358 kg Results 09/06/21 12:31 09/06/21 12:31 Cardiac Enzymes 09/06/21 09/06/21 09/06/21 Range/Units 12:31 12:31 15:25 AST 24 (14-36) U/L Troponin I <0.012 0.027 (0.000-0.034) ng/mL 09/06/21 09/07/21 Range/Units 19:23 01:30 AST (14-36) U/L Troponin I 0.044 H* 0.031 (0.000-0.034) ng/mL Coagulation 09/06/21 09/07/21 09/07/21 Range/Units 12:31 01:30 06:34 PT 11.1 (9.0-12.0) sec APTT 21.9 L 49.7 H 36.7 H (22.0-30.0) sec CBC 09/06/21 Range/Units 12:31 WBC 10.9 H (3.8-10.6) k/uL RBC 4.78 (3.80-5.40) m/uL Hgb 12.5 (11.4-16.0) gm/dL Hct 40.0 (34.0-46.0) % Plt Count 217 (150-450) k/uL Comprehensive Metabolic Panel 09/06/21 Range/Units 12:31 Sodium 141 (137-145) mmol/L Potassium 3.8 (3.5-5.1) mmol/L Chloride 105 (98-107) mmol/L Carbon Dioxide 24 (22-30) mmol/L BUN 13 (7-17) mg/dL Creatinine 0.67 (0.52-1.04) mg/dL Glucose 125 H (74-99) mg/dL Calcium 9.6 (8.4-10.2) mg/dL AST 24 (14-36) U/L ALT 17 (4-34) U/L Alkaline Phosphatase 91 (38-126) U/L Total Protein 7.7 (6.3-8.2) g/dL Albumin 4.4 (3.5-5.0) g/dL Current Medications Generic Name Dose Route Start Last Admin Trade Name Freq PRN Reason Stop Dose Admin Acetaminophen 650 mg 09/06/21 15:44 Acetaminophen Tab 325 Mg Tab PO Q6HR PRN Fever and/ or Pain Albuterol Sulfate 1 puff 09/06/21 14:15 Albuterol Hfa Inhaler INHALATION RT-Q4H PRN Shortness Of Breath Albuterol/Ipratropium 3 ml 09/06/21 15:44 09/07/21 07:35 Ipratropium-Albuterol 3 Ml Neb INHALATION 3 ml RT-QID PRN Administration sob Alprazolam 0.25 mg 09/06/21 14:15 09/06/21 20:09 Alprazolam 0.25 Mg Tab PO 0.25 mg DAILY PRN Administration Anxiety Aspirin 325 mg 09/07/21 09:00 09/07/21 08:15 Aspirin 325 Mg Tab PO 325 mg DAILY DESIRE Administration Atorvastatin Calcium 80 mg 09/07/21 09:00 09/07/21 08:15 Atorvastatin 80 Mg Tab PO 80 mg DAILY DESIRE Administration Budesonide 0.5 mg 09/06/21 20:00 09/07/21 07:35 Budesonide 0.5 Mg/2 Ml Nebu INHALATION 0.5 mg RT-BID DESIRE Administration Cholecalciferol 25 mcg 09/07/21 09:00 09/07/21 08:16 Cholecalciferol 25 Mcg (1000 Iu) Tablet PO 25 mcg DAILY DESIRE Administration Cyanocobalamin 500 mcg 09/07/21 09:00 09/07/21 08:16 Cyanocobalamin 500 Mcg Tab PO 500 mcg DAILY DESIRE Administration Fluticasone Propionate 1 spray 09/07/21 09:00 Fluticasone 50mcg/[place] Nasal 16gm EA NOSTRIL DAILY DESIRE Furosemide 40 mg 09/06/21 21:00 09/06/21 20:09 Furosemide 40 Mg Tab PO 40 mg HS DESIRE Administration Furosemide 20 mg 09/07/21 09:00 09/07/21 08:16 Furosemide 20 Mg Tab PO 20 mg DAILY DESIRE Administration Guaifenesin 600 mg 09/06/21 21:00 09/07/21 08:17 Guaifenesin 600 Mg Tablet.Er PO 600 mg Q12HR DESIRE Administration Heparin Sodium (Porcine) 0 unit 09/07/21 08:39 09/07/21 08:40 Heparin Sodium 1,000 Un/Ml (10ml Vl) IV 2,233.95 unit PER PROTOCOL PRN Administration Low PTT Protocol Hydralazine HCl 50 mg 09/06/21 16:00 09/07/21 08:17 Hydralazine Hcl 50 Mg Tab PO 50 mg TID DESIRE Administration Heparin Sodium/Sodium Chloride 250 mls @ 9.999 mls/hr 09/06/21 14:15 09/07/21 08:44 25,000 unit/ Sodium Chloride IV 13.19 units/kg/hr .Q24H DESIRE 11.786 mls/hr Titration Protocol 11.19 UNITS/KG/HR Ceftriaxone Sodium 1 gm/ 50 mls @ 100 mls/hr 09/06/21 17:00 09/06/21 19:12 Sodium Chloride IVPB 100 mls/hr Q24H DESIRE Administration Insulin Aspart 0 unit 09/06/21 17:30 09/07/21 06:25 Insulin Aspart (Novolog) 100 Unit/Ml Vial SQ 1 unit ACHS DESIRE Administration Protocol Loratadine 10 mg 09/07/21 09:00 09/07/21 08:17 Loratadine 10 Mg Tab PO 10 mg DAILY DESIRE Administration Metformin HCl 500 mg 09/07/21 09:00 09/07/21 08:17 Metformin 500 Mg Tab PO 500 mg DAILY DESIRE Administration Metoprolol Tartrate 12.5 mg 09/06/21 21:00 09/07/21 08:17 Metoprolol Tartrate 12.5 Mg Tab PO 12.5 mg BID DESIRE Administration Montelukast Sodium 10 mg 09/06/21 21:00 09/06/21 20:10 Montelukast 10 Mg Tab PO 10 mg HS DESIRE Administration Morphine Sulfate 4 mg 09/06/21 15:44 Morphine Sulfate 4 Mg/Ml Syringe IVP Q6H PRN Pain Multivitamins 1 each 09/07/21 09:00 09/07/21 08:17 Multivitamins, Thera 1 Each Tab PO 1 each DAILY DESIRE Administration Nitroglycerin 0.4 mg 09/06/21 14:12 Nitroglycerin Sl Tabs 0.4 Mg Tab SUBLINGUAL Q5M PRN Chest Pain Nitroglycerin 0.5 inch 09/06/21 18:00 09/07/21 05:42 Nitroglycerin Oint 1 Inch/Gm Packet TOPICAL Not Given Q6HR [facility] Ondansetron HCl 4 mg 09/06/21 15:44 Ondansetron 4 Mg/2 Ml Vial IVP Q6HR PRN Nausea And Vomiting Pantoprazole Sodium 40 mg 09/07/21 07:30 09/07/21 06:25 Pantoprazole 40 Mg Tablet PO 40 mg DAILY@0730 DESIRE Administration Potassium Chloride 20 meq 09/07/21 09:00 09/07/21 08:18 Potassium Chloride Er 20 Meq Tab.Er PO 20 meq DAILY DESIRE Administration Prednisone 40 mg 09/06/21 16:15 09/07/21 08:18 Prednisone 20 Mg Tab PO 40 mg DAILY DESIRE Administration Sertraline HCl 50 mg 09/07/21 09:00 09/07/21 08:19 Sertraline 50 Mg Tab PO 50 mg DAILY DESIRE Administration Intake and Output 09/06/21 09/07/21 09/07/21 22:59 06:59 14:59 Intake Total 610 125.654 Balance 610 125.654 Intake: Intake, IV Titration 130 125.654 Amount Heparin Sod,Pork in 0.45% 30 125.654 NaCl 25,000 unit In 0.45 % NaCl 1 250ml.bag @ 11. 19 UNITS/KG/HR 9.999 mls/ hr IV .Q24H DESIRE Rx#: [id number] cefTRIAXone 1 gm In 100 Sodium Chloride 0.9% 50 ml @ 100 mls/hr IVPB Q24H DESIRE Rx#:[id number] Oral 480 Other: # Voids 1 Weight 89.358 kg 09/06/21 12:31 09/06/21 12:31
[2021-09-07] MEDS ORDERED: HEPARIN SODIUM 1,000 UN/ML (10ML VL) ONE (10:24)
[2021-09-07 10:26] LABS: Chol/HDL Ratio 2.57 Ratio; LDL Cholesterol,Calculated 71.6 mg/dL (0.0-131.0); VLDL Calculation 15.72 mg/dL (5.00-40.00)
[2021-09-07] MEDS ORDERED: IV FLUID CONTINUATION 1,000 ML IV ONE (10:30)
[2021-09-07] MEDS ORDERED: fentaNYL (PF) 50 MCG/ML 5 ML AMP IV ONE (10:41)
[2021-09-07] MEDS ORDERED: MIDAZOLAM 2 MG/2 ML VIAL IV ONE (10:41)
[2021-09-07] MEDS ORDERED: LIDOCAINE 1% INJ 10MG/ML (20 ML MDV) SQ ONE (10:44)
[2021-09-07] MEDS ORDERED: VERAPAMIL SYRINGE (5 MG/10 ML) INTRAARTER ONE (10:45)
[2021-09-07] MEDS ORDERED: HEPARIN SODIUM 1,000 UN/ML (10ML VL) IV ONE (10:54)
[2021-09-07] MEDS ORDERED: hydrALAZINE HCL 20 MG/ML 1 ML VIAL ONE (11:40)
[2021-09-07] MEDS ORDERED: RX INFO: IV CONTRAST WAS GIVEN 1 EACH MISC MISCELLANE PRN (11:43)
--- NOTE | 2021-09-07 11:43 | P.CARDCATH ---
Date of Procedure: 09/07/21 Preoperative Diagnosis: NON STEMI Postoperative Diagnosis: Total occluded RCA. Chronic total occluded circumflex Implants: Left heart catheterization without left ventriculography Description of Procedure: HISTORY: 79-year-old female with history of ischemic heart disease with a total occlusion of the circumflex and stent placement of the RCA done in 2019 in the setting of acute myocardial infarction. Patient is now admitted to the hospital with recurrent chest pains and borderline positive troponins with mild ST-T abnormalities. Patient is advised to have a cardiac catheterization for definitive diagnosis CONSENT:I have discussed the risks, benefits and alternative therapies for the above-mentioned procedure and for both sedation/analgesia as well as necessary blood product administration, if indicated, as they pertain to this patient. The patient has indicated understanding and acceptance of the risks and procedures discussed. PROCEDURE: Patient was brought to the lab in a fasting state. Patient was given some IV sedation. The right wrist is infiltrated with lidocaine and right radial artery was entered using Seldinger technique. A 6-Yi catheter was left in place and selective coronary arteriography was performed. Patient tolerated the procedure well. We're waiting for the review of the films by Interventionalist and further recommendations. No immediate complications were noted and patient was transferred to [facility] in a stable condition Conscious Sedation: Versed 1mg Fentanyl 25 g Duration 30minutes HEMODYNAMICS: The aortic pressure is 170/70. The left ventricle end-diastolic pressure was about 20-25. No gradient across the aortic valve SELECTIVE CORONARY ARTERIOGRAPHY: LEFT MAIN: This is a normal length and free of any significant focal lesions THE LEFT ANTERIOR DESCENDING CORONARY ARTERY: . This is a good caliber vessel giving rise to good-sized diagonal branch the LAD has mild diffuse plaque without any critical lesions THE LEFT CIRCUMFLEX AND IS CORONARY ARTERY: Subtotal occluded in the proximal portion with ipsi lateral collateral filling the distal circumflex. This is a chronic lesion THE RIGHT CORONARY ARTERY: Is totally occluded near the ostium. There are collaterals from the left coronary system filling the RCA LEFT VENTRICULOGRAPHY: Not performed FINAL IMPRESSION: . Total occlusion of the RCA at the ostium. Chronic near total occlusion of the circumflex. Mild disease involving the LAD PLAN: Reviewed films with interventionalists. Because of difficulty obtaining using the RCA and the previous difficulties with the procedure, maximum medical therapy is advised PROGNOSIS: Guarded
[2021-09-07] MEDS ORDERED: hydrALAZINE HCL 20 MG/ML 1 ML VIAL IV ONE (11:46)
[2021-09-07] MEDS ORDERED: IOPAMIDOL-370 125ML BTL INJ ONE (11:46)
[2021-09-07] MEDS: lisinopriL 10 MG TAB PO SCH (13:06)
[2021-09-07] MEDS ORDERED: lisinopriL 20 MG TAB PO STA (13:06)
[2021-09-07] MEDS: SODIUM CHLORIDE 0.9% 1,000 ML in EMPTY BAG 1 BAG IV SCH (14:23)
[2021-09-07] MEDS: FLUTICASONE 50MCG/SPRAY NASAL 16GM EA NOSTRIL SCH (14:23)
[2021-09-07] MEDS: HEPARIN SOD,PORK IN 0.45% NACL 25,000 UNIT in 0.45% NACL 1 250ML.BAG IV SCH (14:24)
[2021-09-07] MEDS: SODIUM CHLORIDE 0.9% 1,000 ML IV SCH (15:21)
--- NOTE | 2021-09-07 16:02 | P.PN ---
Subjective Progress Note Date: 09/07/21 This is an 81-year-old female patient of Dr. Joyce and Dr. Breen with past medical history of coronary artery disease status post angioplasty and stenting RCA with known critical stenosis in the LAD last intervention in October 2018, hyperlipidemia, hypertension, paroxysmal atrial fibrillation, obstructive sleep apnea unable to tolerate CPAP but using home O2 at 2 L at bedtime, diabetes mellitus type 2 diet controlled, gastroesophageal reflux disease, , IBS, morbid obesity status post lap banding and removal with subsequent gastric sleeve. Patient was last hospitalized in 2018 with acute diastolic heart failure with anemia and bradycardia. She was also noted to be in junctional rhythm on beta amirah was held at that time. Patient has been having on-and-off chest pain associated with increased tiredness for the past 10 days. She was admitted at [facility] for sim ilar complaints one week ago. Her medications were readjusted with the addition of metoprolol and metformin. Norvasc was discontinued. Posthospitalization patient had a follow-up visit with Dr. Warren of admission is found to have sinus bradycardia with first-degree heart block. Metoprolol was reduced to 12.5 twice a day. Patient comes in to [facility] today with the acute substernal chest pressure associated with tingling involving upper and lower extremity. Patient took a nitro tablet at home with minimal improvement of pain on arrival to the ER. Nitrol ointment was placed and patient had relief of her symptoms. She has noticed increased sleepiness and tiredness associated with the cough with phlegm production the past week. Patient noted she is wheezy and short of breath. Vitals are reviewed patient is afebrile pulse of 59, respiratory rate 18 blood pressure 207/70 his oxygenation 96% on room air Chest x-ray obtained shows minimal basilar atelectasis or scar no other focal airspace opacity of pleural effusion or pneumothorax noted. 09/07: Patient is seen on the extended stay unit following left heart catheterization which revealed total occlusion of the RCA at the ostium. Chronic near-total occlusion of the circumflex. Mild disease involving the LAD. Plan is to maximize medical therapy. Patient is currently on aspirin 81 mg daily, Lipitor 80 mg daily, Lopressor 12.5 mg twice daily, lisinopril 10 mg daily. Patient states that her pain is a #2. She denies having any shortness of breath. Blood pressure elevated at 166/67. Anticipate probable discharge home tomorrow. ROS Constitutional: Denies chills, Denies fever, endorses lethargy, endorses s malaise, Denies poor appetite, enorses weakness, Denies weight loss Eyes: denies decreased vision, denies diplopia, denies discharge, denies pain Ears: deny: decreased hearing Ears, nose, mouth and throat: Denies dental pain, Denies headache, Denies nasal discharge, Denies nose pain Cardiovascular: Endorses mild chest pain, Denies decreased exercise tolerance, Denies edema, Denies high blood pressure, Denies irregular heart beat, Denies palpitations, Denies paroxysmal nocturnal dyspnea, Denies rapid heart beat, Denies shortness of breath Respiratory: Endorses congestion, endorses cough, endorses cough with sputum, endorses dyspnea, endorses home oxygen, endorses wheezing Gastrointestinal: Denies abdominal pain, Denies change in bowel habits, Denies coffee ground emesis, Denies early satiety, Denies excessive gas, Denies heartburn, Denies hematemesis, Denies hematochezia, Denies loss of appetite, Denies nausea, Denies vomiting Genitourinary: Denies dysuria, Denies flank pain, Denies kidney stones, Denies menorrhagia, Denies urgency, Denies urinary frequency Musculoskeletal: Denies gait dysfunction, Denies limitation of motion, Denies morning stiffness, Denies muscle cramps Integumentary: Denies rash, Denies wounds, Denies brittle nails, Denies change in hair/nails, Denies darkening of skin Neurological: Denies balance difficulties, Denies change in speech, Denies double vision, Denies gait dysfunction, Denies loss of vision, Denies motor disturbance, Denies numbness, Denies paralysis, Denies paresthesias, Denies seizures Psychiatric: Denies anxiety, Denies depression Endocrine: Denies excessive sweating, Denies excessive thirst, Denies high blood sugars, Denies palpitations Hematologic/Lymphatic: Denies easy bruising, Denies lymphadenopathy Physical exam - Constitutional General appearance: cooperative, no acute distress, obese - EENT Eyes: anicteric sclerae, PERRLA, normal appearance ENT: hearing grossly normal - Neck Neck: no lymphadenopathy, normal ROM, no other, no rigidity, no stridor, no thyromegaly - Respiratory Respiratory: bilateral: decreased air entry with mild wheezing - Cardiovascular Rhythm: regular Heart sounds: normal: S1, S2 Abnormal Heart Sounds 4/6 systolic murmur, no diastolic murmur, no rub, no S3 Gallop, no S4 Gallop, no click, no other nonreproducible - Gastrointestinal General gastrointestinal: normal bowel sounds, soft nontender - Integumentary Integumentary: no rash - Neurologic Neurologic: CNII-XII intact - Musculoskeletal Musculoskeletal: gait normal, strength equal bilaterally - Psychiatric Psychiatric: A&O x's 3, appropriate affect Assessment and plan Non-ST elevated myocardial infarction status post heart catheterization with total occlusion of the RCA, near-total occlusion of the circumflex with rec ommendations for medical management Sinus bradycardia with history of junctional rhythm -Metoprolol reduced to 12.5 twice a day Hypertension urgency -Metoprolol 12.5 twice a day Norvasc was discontinued in the last hospitalization at [facility] -Continue Lasix 40 mg daily at bedtime and 20 mg daily - Hydralazine initiated at 50 mg 3 times a day and lisinopril 10 mg daily added today - We will review records of the patient including echocardiogram and see if that would indicate indicate ischemic cardiomyopathy - Cardiology consulted Acute bronchitis/COPD exacerbation -Rocephin 1 g every 24 hours - DuoNeb as needed for shortness of breath - Prednisone 40 mg by mouth daily Hypersomnia -Patient has obstructive sleep apnea but does not wear her CPAP - No CO2 retention Type 2 diabetes, controlled Hold metformin before meals at bedtime glucose checks and insulin sliding scale HbA1c ordered and Hyperlipidemia Continue atorvastatin 80 mg by mouth daily Anxiety/depression Continue Xanax 0.25 mg by mouth daily Zoloft 50 mg by mouth daily Asthma/COPD Continue DuoNeb as needed for shortness of breath Continue Pulmicort twice daily Paroxysmal atrial fibrillation currently sinus rhythm not on any anticoagulation Obstructive sleep apnea -Does not wear CPAP utilizing oxygen at 2 L at baseline GERD On Protonix Morbid obesity status post lap band and removal gastric sleeve, stable with Dr. Gilbert DVT prophylaxis On heparin drip DISCHARGE PLAN Home on Friday Impression and plan of care have been directed as dictated by the signing physician. Angie Castellon nurse practitioner acting as scribe for signing physician. Objective - Vital Signs Vital signs: Vital Signs Temp 98.0 F 09/07/21 09:45 Pulse 55 L 09/07/21 09:45 Resp 18 09/07/21 09:45 BP 158/60 09/07/21 09:45 Pulse Ox 94 L 09/07/21 09:45 Intake & Output 09/06/21 09/07/21 09/07/21 18:59 06:59 18:59 Intake Total 610 275.654 Balance 610 275.654 Weight 89.358 kg 89.358 kg Intake: IV 150 Intake, IV Titration 130 125.654 Amount Heparin Sod,Pork in 0.45% 30 125.654 NaCl 25,000 unit In 0.45 % NaCl 1 250ml.bag @ 11. 19 UNITS/KG/HR 9.999 mls/ hr IV .Q24H [facility] Rx#: [id number] cefTRIAXone 1 gm In 100 Sodium Chloride 0.9% 50 ml @ 100 mls/hr IVPB Q24H [facility] Rx#:[id number] Oral 480 Other: # Voids 1 - Labs CBC & Chem 7: 09/06/21 12:31 09/06/21 12:31 Labs: Abnormal Lab Results - Last 24 Hours (Table) 09/06/21 09/06/21 09/06/21 Range/Units 12:31 12:31 12:31 WBC 10.9 H (3.8-10.6) k/uL APTT 21.9 L (22.0-30.0) sec D-Dimer (<0.60) mg/L FEU Glucose 125 H (74-99) mg/dL POC Glucose (mg/dL) (75-99) mg/dL Troponin I (0.000-0.034) ng/mL 09/06/21 09/06/21 09/06/21 Range/Units 16:21 19:23 19:51 WBC (3.8-10.6) k/uL APTT (22.0-30.0) sec D-Dimer 0.71 H (<0.60) mg/L FEU Glucose (74-99) mg/dL POC Glucose (mg/dL) 138 H (75-99) mg/dL Troponin I 0.044 H* (0.000-0.034) ng/mL 09/07/21 09/07/21 09/07/21 Range/Units 01:30 06:14 06:34 WBC (3.8-10.6) k/uL APTT 49.7 H 36.7 H (22.0-30.0) sec D-Dimer (<0.60) mg/L FEU Glucose (74-99) mg/dL POC Glucose (mg/dL) 161 H (75-99) mg/dL Troponin I (0.000-0.034) ng/mL
[2021-09-07] MEDS: ALPRAZolam 0.5 MG TAB PO PRN (16:33)
[2021-09-07 16:53] LABS: Glucose,Whole Blood 141 mg/dL (75-99)
[2021-09-07] MEDS: PANTOPRAZOLE 40 MG/10 ML VIAL IVP SCH (20:40)
[2021-09-07] MEDS: MONTELUKAST 10 MG TAB PO SCH (20:41)
[2021-09-07] MEDS: FUROSEMIDE 40 MG TAB PO SCH (20:41)
[2021-09-07 20:57] LABS: Glucose,Whole Blood 148 mg/dL (75-99)
[2021-09-07 21:16] LABS: HGB 11.7 gm/dL (11.4-16.0); Hypochromasia Moderate; MCH 26.8 pg (25.0-35.0); MCHC 31.6 g/dL (31.0-37.0); MCV 84.7 fL (80.0-100.0); Mean Platelet Volume 8.1; Platelet Count 241 k/uL (150-450); RBC 4.37 m/uL (3.80-5.40); RDW 15.7 % (11.5-15.5); WBC 12.9 k/uL (3.8-10.6)
[2021-09-08 06:14] LABS: Glucose,Whole Blood 106 mg/dL (75-99)
[2021-09-08] MEDS: SODIUM CHLORIDE 0.9% 1,000 ML in EMPTY BAG 1 BAG IV SCH ×3 (06:28→20:14)
[2021-09-08] MEDS: SODIUM CHLORIDE 0.9% 1,000 ML IV SCH (06:28)
[2021-09-08] MEDS: INSULIN ASPART (NovoLOG) 100 UNIT/ML VIAL SQ SCH ×4 (06:29→20:24)
[2021-09-08] MEDS: NITROGLYCERIN OINT 1 INCH/GM PACKET TOPICAL SCH ×4 (06:29→23:24)
--- NOTE | 2021-09-08 07:29 | P.PN ---
Subjective Progress Note Date: 09/08/21 Principal diagnosis: Chest pain The patient is an 81-year-old female patient with CAD and prior revascularization was admitted to the hospital after she presented with chest discomfort which she underwent a heart catheterization and that revealed mild disease involving the LAD was chronic total occlusion of the LCx which is known from before and the right coronary artery was not opacified and deemed to be probably chronically occluded. The patient was treated medically. She was seen this morning. She is chest pain-free. Last night she did have some nausea and vomiting. Hemodynamically she is stable. I'm going to add a small dose of oral nitrates the current medical regimen giving him extensive status of her CAD and the chest discomfort yesterday. We'll continue monitoring the patient for additional 24 hours for possible discharge tomorrow if she is chest pain-free. The echo still pending. Objective - Vital Signs Vital signs: Vital Signs Temp 98.2 F 09/08/21 04:00 Pulse 57 L 09/08/21 04:00 Resp 18 09/08/21 04:00 BP 129/58 09/08/21 04:00 Pulse Ox 94 L 09/08/21 04:00 Intake & Output 09/07/21 09/08/21 09/08/21 18:59 06:59 18:59 Intake Total 511.654 540 Output Total 900 Balance -388.346 540 Intake: IV 150 Intake, IV Titration 125.654 Amount Heparin Sod,Pork in 0.45% 125.654 NaCl 25,000 unit In 0.45 % NaCl 1 250ml.bag @ 11. 19 UNITS/KG/HR 9.999 mls/ hr IV .Q24H [facility] Rx#: [id number] Oral 236 540 Output: Urine 900 Other: Voiding Method Bedpan Toilet Bedpan # Voids 1 - Constitutional General appearance: Present: no acute distress - Respiratory Respiratory: bilateral: diminished - Cardiovascular Rhythm: regular Heart sounds: normal: S1, S2 Abnormal Heart Sounds: Present: systolic murmur - Labs CBC & Chem 7: 09/07/21 20:50 09/06/21 12:31 Labs: Abnormal Lab Results - Last 24 Hours (Table) 09/07/21 09/07/21 09/07/21 Range/Units 16:51 20:50 20:54 WBC 12.9 H (3.8-10.6) k/uL RDW 15.7 H (11.5-15.5) % POC Glucose (mg/dL) 141 H 148 H (75-99) mg/dL 09/07/21 09/08/21 Range/Units 20:54 06:03 WBC (3.8-10.6) k/uL RDW (11.5-15.5) % POC Glucose (mg/dL) 148 H 106 H (75-99) mg/dL Microbiology - Last 24 Hours (Table) 09/06/21 18:45 Blood Culture - Preliminary Blood No Growth after 24 hours Assessment and Plan Assessment: Assessment #1 chest discomfort which has improved #2 severe coronary artery disease #3 valvular heart disease #4 hypertension #5 dyslipidemia #6 multiple comorbid conditions Plan #1 continue the current medical regimen #2 add oral nitrates the current medical regimen #3 monitor the patient for additional 24 hours
[2021-09-08] MEDS: IPRATROPIUM-ALBUTEROL 3 ML NEB INHALATION PRN (08:43)
[2021-09-08] MEDS: BUDESONIDE 0.5 MG/2 ML NEBU INHALATION SCH ×2 (08:43→20:06)
[2021-09-08 08:46] LABS: Basophils % (A) 0 %; Eosinophils % (A) 0 %; HGB 11.9 gm/dL (11.4-16.0); Hypochromasia Moderate; Lymphocytes % (A) 28 %; MCH 26.6 pg (25.0-35.0); MCHC 31.4 g/dL (31.0-37.0); MCV 84.6 fL (80.0-100.0); Mean Platelet Volume 8.3; Monocytes # (A) 0.6 k/uL (0-1.0); Monocytes % (A) 6 %; Neutrophils # (A) 6.6 k/uL (1.3-7.7); Neutrophils % (A) 63 %; Platelet Count 219 k/uL (150-450); RBC 4.49 m/uL (3.80-5.40); RDW 15.6 % (11.5-15.5); WBC 10.4 k/uL (3.8-10.6)
[2021-09-08 09:03] LABS: Calcium 8.7 mg/dL (8.4-10.2); Potassium 3.9 mmol/L (3.5-5.1)
[2021-09-08] MEDS: ATORVASTATIN 80 MG TAB PO SCH (09:52)
[2021-09-08] MEDS: MULTIVITAMINS, THERA 1 EACH TAB PO SCH (09:52)
[2021-09-08] MEDS: lisinopriL 10 MG TAB PO SCH (09:52)
[2021-09-08] MEDS: FUROSEMIDE 20 MG TAB PO SCH (09:52)
[2021-09-08] MEDS: predniSONE 20 MG TAB PO SCH (09:52)
[2021-09-08] MEDS: CHOLECALCIFEROL 25 MCG (1000 IU) TABLET PO SCH (09:52)
[2021-09-08] MEDS: guaiFENesin 600 MG TABLET.ER PO SCH ×2 (09:52→20:24)
[2021-09-08] MEDS: CYANOCOBALAMIN 500 MCG TAB PO SCH (09:52)
[2021-09-08] MEDS: METOPROLOL TARTRATE 12.5 MG TAB PO SCH ×2 (09:52→20:25)
[2021-09-08] MEDS: ISOSORBIDE MONONITRATE ER 30 MG TAB.ER.24H PO SCH (09:52)
[2021-09-08] MEDS: SERTRALINE 50 MG TAB PO SCH (09:52)
[2021-09-08] MEDS: ASPIRIN 81 MG PO SCH (09:53)
[2021-09-08] MEDS: LORATADINE 10 MG TAB PO SCH (09:53)
[2021-09-08] MEDS: PANTOPRAZOLE 40 MG/10 ML VIAL IVP SCH ×2 (09:53→20:24)
[2021-09-08] MEDS: POTASSIUM CHLORIDE ER 20 MEQ TAB.ER PO SCH (09:53)
[2021-09-08] MEDS: hydrALAZINE HCL 50 MG TAB PO SCH ×3 (09:53→20:24)
--- NOTE | 2021-09-08 10:45 | P.PN ---
Subjective Progress Note Date: 09/08/21 This is an 81-year-old female patient of Dr. Joyce and Dr. Breen with past medical history of coronary artery disease status post angioplasty and stenting RCA with known critical stenosis in the LAD last intervention in October 2018, hyperlipidemia, hypertension, paroxysmal atrial fibrillation, obstructive sleep apnea unable to tolerate CPAP but using home O2 at 2 L at bedtime, diabetes mellitus type 2 diet controlled, gastroesophageal reflux disease, , IBS, morbid obesity status post lap banding and removal with subsequent gastric sleeve. Patient was last hospitalized in 2018 with acute diastolic heart failure with anemia and bradycardia. She was also noted to be in junctional rhythm on beta amirah was held at that time. Patient has been having on-and-off chest pain associated with increased tiredness for the past 10 days. She was admitted at [facility] for similar complaints one week ago. Her medications were readjusted with the addition of metoprolol and metformin. Norvasc was discontinued. Posthospitalization patient had a follow-up visit with Dr. Warren of admission is found to have sinus bradycardia with first-degree heart block. Metoprolol was reduced to 12.5 twice a day. Patient comes in to [facility] today with the acute substernal chest pressure associated with tingling involving upper and lower extremity. Patient took a nitro tablet at home with minimal improvement of pain on arrival to the ER. Nitrol ointment was placed and patient had relief of her symptoms. She has noticed increased sleepiness and tiredness associated with the cough with phlegm production the past week. Patient noted she is wheezy and short of breath. V itals are reviewed patient is afebrile pulse of 59, respiratory rate 18 blood pressure 207/70 his oxygenation 96% on room air Chest x-ray obtained shows minimal basilar atelectasis or scar no other focal airspace opacity of pleural effusion or pneumothorax noted. 09/07: Patient is seen on the extended stay unit following left heart catheterization which revealed total occlusion of the RCA at the ostium. Chronic near-total occlusion of the circumflex. Mild disease involving the LAD. Plan is to maximize medical therapy. Patient is currently on aspirin 81 mg d aily, Lipitor 80 mg daily, Lopressor 12.5 mg twice daily, lisinopril 10 mg daily. Patient states that her pain is a #2. She denies having any shortness of breath. Blood pressure elevated at 166/67. Anticipate probable discharge home tomorrow. 09/08: Patient was seen on 3 cells found sitting up in a chair in no acute distress. Patient vacation regime was changed today with the addition of a n itrate. She will be followed for 24 more hours and possible discharge tomorrow. Blood pressure range from 166 to 129. Patient denies any chest pain shortness of breath. Her puncture site is clean and dry. ROS Constitutional: Denies chills, Denies fever, endorses lethargy, endorses s malaise, Denies poor appetite, enorses weakness, Denies weight loss Eyes: denies decreased vision, denies diplopia, denies discharge, denies pain Ears: deny: decreased hearing Ears, nose, mouth and throat: Denies dental pain, Denies headache, Denies nasal discharge, Denies nose pain Cardiovascular: Endorses mild chest pain, Denies decreased exercise tolerance, Denies edema, Denies high blood pressure, Denies irregular heart beat, Denies palpitations, Denies paroxysmal nocturnal dyspnea, Denies rapid heart beat, Denies shortness of breath Respiratory: Endorses congestion, endorses cough, endorses cough with sputum, endorses dyspnea, endorses home oxygen, endorses wheezing Gastrointestinal: Denies abdominal pain, Denies change in bowel habits, Denies coffee ground emesis, Denies early satiety, Denies excessive gas, Denies heartburn, Denies hematemesis, Denies hematochezia, Denies loss of appetite, Denies nausea, Denies vomiting Genitourinary: Denies dysuria, Denies flank pain, Denies kidney stones, Denies menorrhagia, Denies urgency, Denies urinary frequency Musculoskeletal: Denies gait dysfunction, Denies limitation of motion, Denies morning stiffness, Denies muscle cramps Integumentary: Denies rash, Denies wounds, Denies brittle nails, Denies change in hair/nails, Denies darkening of skin Neurological: Denies balance difficulties, Denies change in speech, Denies double vision, Denies gait dysfunction, Denies loss of vision, Denies motor disturbance, Denies numbness, Denies paralysis, Denies paresthesias, Denies seizures Psychiatric: Denies anxiety, Denies depression Endocrine: Denies excessive sweating, Denies excessive thirst, Denies high blood sugars, Denies palpitations Hematologic/Lymphatic: Denies easy bruising, Denies lymphadenopathy Physical exam - Constitutional General appearance: cooperative, no acute distress, obese - EENT Eyes: anicteric sclerae, PERRLA, normal appearance ENT: hearing grossly normal - Neck Neck: no lymphadenopathy, normal ROM, no other, no rigidity, no stridor, no thyromegaly - Respiratory Respiratory: bilateral: decreased air entry with mild wheezing - Cardiovascular Rhythm: regular Heart sounds: normal: S1, S2 Abnormal Heart Sounds 4/6 systolic murmur, no diastolic murmur, no rub, no S3 Gallop, no S4 Gallop, no click, no other nonreproducible - Gastrointestinal General gastrointestinal: normal bowel sounds, soft nontender - Integumentary Integumentary: no rash - Neurologic Neurologic: CNII-XII intact - Musculoskeletal Musculoskeletal: gait normal, strength equal bilaterally - Psychiatric Psychiatric: A&O x's 3, appropriate affect Assessment and plan 1. Non-ST elevated myocardial infarction status post heart catheterization with total occlusion of the RCA, near-total occlusion of the circumflex with recommendations for medical management 2. Sinus bradycardia with history of junctional rhythm. Metoprolol reduced to 12.5 twice a day 3. Hypertension urgency. Metoprolol 12.5 twice a day, Norvasc was discontinued in the last hospitalization at [facility]. Continue Lasix 40 mg daily at bedtime and 20 mg daily. Hydralazine initiated at 50 mg 3 times a day and lisinopril 10 mg daily added today. We will review records of the patient including echocardiogram and see if that would indicate indicate ischemic cardiomyopathy. Cardiology consulted 3. Acute bronchitis/COPD exacerbation. Rocephin 1 g every 24 hours. DuoNeb as needed for shortness of breath. Prednisone 40 mg by mouth daily 4. Hypersomnia. Patient has obstructive sleep apnea but does not wear her CPAP. No CO2 retention 5. Type 2 diabetes, controlled. Hold metformin. before meals at bedtime glucose checks and insulin sliding scale. HbA1c ordered 6. Hyperlipidemia. Continue atorvastatin 80 mg by mouth daily 7. Anxiety/depression. Continue Xanax 0.25 mg by mouth daily. Zoloft 50 mg by mouth daily 8. Asthma/COPD. Continue DuoNeb as needed for shortness of breath. Continue Pulmicort twice daily 9. Paroxysmal atrial fibrillation currently sinus rhythm not on any anticoagulation 10. Obstructive sleep apnea. Does not wear CPAP utilizing oxygen at 2 L at baseline 11. GERD and GI prophylaxis. On Protonix 12. Morbid obesity status post lap band and removal gastric sleeve, stable with Dr. Gilbert 13. DVT prophylaxis. DC'd, ambulation DISCHARGE PLAN Home on Friday Impression and plan of care have been directed as dictated by the signing physician. Racheal Matthews nurse practitioner acting as scribe for signing physician. Objective - Vital Signs Vital signs: Vital Signs Temp 98.2 F 09/08/21 04:00 Pulse 62 09/08/21 09:03 Resp 18 09/08/21 04:00 BP 129/58 09/08/21 04:00 Pulse Ox 94 L 09/08/21 04:00 Intake & Output 09/07/21 09/08/21 09/08/21 18:59 06:59 18:59 Intake Total 511.654 540 240 Output Total 900 Balance -388.346 540 240 Intake: IV 150 Intake, IV Titration 125.654 Amount Heparin Sod,Pork in 0.45% 125.654 NaCl 25,000 unit In 0.45 % NaCl 1 250ml.bag @ 11. 19 UNITS/KG/HR 9.999 mls/ hr IV .Q24H [facility] Rx#: [id number] Oral 236 540 240 Output: Urine 900 Other: Voiding Method Bedpan Toilet Bedpan # Voids 1 - Labs CBC & Chem 7: 09/08/21 07:55 09/08/21 07:55 Labs: Abnormal Lab Results - Last 24 Hours (Table) 09/07/21 09/07/21 09/07/21 Range/Units 16:51 20:50 20:54 WBC 12.9 H (3.8-10.6) k/uL RDW 15.7 H (11.5-15.5) % BUN (7-17) mg/dL Glucose (74-99) mg/dL POC Glucose (mg/dL) 141 H 148 H (75-99) mg/dL 09/07/21 09/08/21 09/08/21 Range/Units 20:54 06:03 07:55 WBC (3.8-10.6) k/uL RDW (11.5-15.5) % BUN 18 H (7-17) mg/dL Glucose 174 H (74-99) mg/dL POC Glucose (mg/dL) 148 H 106 H (75-99) mg/dL 09/08/21 Range/Units 07:55 WBC (3.8-10.6) k/uL RDW 15.6 H (11.5-15.5) % BUN (7-17) mg/dL Glucose (74-99) mg/dL POC Glucose (mg/dL) (75-99) mg/dL Microbiology - Last 24 Hours (Table) 09/06/21 18:45 Blood Culture - Preliminary Blood No Growth after 24 hours
[2021-09-08 12:11] LABS: Glucose,Whole Blood 117 mg/dL (75-99)
[2021-09-08] MEDS: FLUTICASONE 50MCG/SPRAY NASAL 16GM EA NOSTRIL SCH (13:43)
--- NOTE | 2021-09-08 14:41 | ECHOF ---
Referral Reason:LV function, chest pain MEASUREMENTS -------- HEIGHT: 157.5 cm WEIGHT: 89.4 kg BP: 158/60 RVIDd: 4.7 cm (< 3.3) IVSd: 1.6 cm (0.6 - 1.1) LVIDd: 5.2 cm (3.9 - 5.3) LVPWd: 1.2 cm (0.6 - 1.1) IVSs: 1.8 cm LVIDs: 3.6 cm LVPWs: 1.7 cm LAESV Index (A-L): 53.15 ml/m Ao Diam: 2.8 cm (2.0 - 3.7) AV Cusp: 1.6 cm (1.5 - 2.6) LA Diam: 5.4 cm (2.7 - 3.8) MV EXCURSION: 15.009 mm (> 18.000) MV EF SLOPE: 33 mm/s (70 - 150) EPSS: 0.6 cm MV E Rito: 1.47 m/s MV DecT: 255 ms MV A Rito: 1.32 m/s MV E/A Ratio: 1.12 AV maxP.93 mmHg AV meanP.40 mmHg RAP: 5.00 mmHg RVSP: 70.16 mmHg FINDINGS -------- Sinus rhythm. This was a technically adequate study. The left ventricular size is normal. There is mild concentric left ventricular hypertrophy. Overa ll left ventricular systolic function is mildly impaired with, an EF between 45 - 50 %. Basal later al LV wall motion is hypokinetic. Basal inferior LV wall motion is hypokinetic. The right ventricle is severely enlarged. LA is severely dilated >40 ml/m2 The right atrium is mildly enlarged. Interatrial and interventricular septum intact. The aortic valve is trileaflet and appears structurally normal. There is no evidence of aortic regu rgitation. There is mild aortic stenosis present. The maximum velocity across the aortic valve is 2.18m/s. Peak/mean gradient across the Aortic Valve is 18.93mmHg / 10.40mmHg. Moderate mitral annular calcification present. Moderate mitral regurgitation is present. Severe tricuspid regurgitation present. There is severe pulmonary hypertension. The right ventric ular systolic pressure, as measured by Doppler, is 70.16mmHg. There is no pulmonic regurgitation present. The aortic root size is normal. IVC Not well visulized. There is no pericardial effusion. CONCLUSIONS -------- 1. The left ventricular size is normal. 2. There is mild concentric left ventricular hypertrophy. 3. Overall left ventricular systolic function is mildly impaired with, an EF between 45 - 50 %. 4. Basal lateral LV wall motion is hypokinetic. 5. Basal inferior LV wall motion is hypokinetic. 6. The right ventricle is severely enlarged. 7. LA is severely dilated >40 ml/m2 8. The right atrium is mildly enlarged. 9. There is mild aortic stenosis present. 10. The maximum velocity across the aortic valve is 2.18m/s. 11. Peak/mean gradient across the Aortic Valve is 18.93mmHg / 10.40mmHg. 12. Moderate mitral annular calcification present. 13. Moderate mitral regurgitation is present. 14. Severe tricuspid regurgitation present. 15. There is severe pulmonary hypertension. 16. The right ventricular systolic pressure, as measured by Doppler, is 70.16mmHg. ABAP DEVELOPER: Veronica Corona RDCS
[2021-09-08 16:46] LABS: Glucose,Whole Blood 226 mg/dL (75-99)
[2021-09-08 20:13] LABS: Glucose,Whole Blood 177 mg/dL (75-99)
[2021-09-08] MEDS: MONTELUKAST 10 MG TAB PO SCH (20:24)
[2021-09-08] MEDS: FUROSEMIDE 40 MG TAB PO SCH (20:25)
[2021-09-09] MEDS: SODIUM CHLORIDE 0.9% 1,000 ML IV SCH (05:35)
[2021-09-09 06:10] LABS: Glucose,Whole Blood 90 mg/dL (75-99)
[2021-09-09] MEDS: NITROGLYCERIN OINT 1 INCH/GM PACKET TOPICAL SCH ×2 (06:13→12:10)
[2021-09-09] MEDS: INSULIN ASPART (NovoLOG) 100 UNIT/ML VIAL SQ SCH (06:13)
[2021-09-09] MEDS ORDERED: PANTOPRAZOLE 40 MG TABLET PO SCH (07:30)
[2021-09-09 08:10] VITALS: RESP 16
[2021-09-09] MEDS: ISOSORBIDE MONONITRATE ER 30 MG TAB.ER.24H PO SCH (08:10)
[2021-09-09] MEDS: hydrALAZINE HCL 50 MG TAB PO SCH (08:10)
[2021-09-09] MEDS: lisinopriL 10 MG TAB PO SCH (08:10)
[2021-09-09] MEDS: predniSONE 20 MG TAB PO SCH (08:10)
[2021-09-09] MEDS: ALPRAZolam 0.5 MG TAB PO PRN (08:10)
[2021-09-09] MEDS: POTASSIUM CHLORIDE ER 20 MEQ TAB.ER PO SCH (08:11)
[2021-09-09] MEDS: CYANOCOBALAMIN 500 MCG TAB PO SCH (08:11)
[2021-09-09] MEDS: ASPIRIN 81 MG PO SCH (08:11)
[2021-09-09] MEDS: SERTRALINE 50 MG TAB PO SCH (08:11)
[2021-09-09] MEDS: FUROSEMIDE 20 MG TAB PO SCH (08:11)
[2021-09-09] MEDS: MULTIVITAMINS, THERA 1 EACH TAB PO SCH (08:12)
[2021-09-09] MEDS: LORATADINE 10 MG TAB PO SCH (08:12)
[2021-09-09] MEDS: FLUTICASONE 50MCG/SPRAY NASAL 16GM EA NOSTRIL SCH (08:12)
[2021-09-09] MEDS: CHOLECALCIFEROL 25 MCG (1000 IU) TABLET PO SCH (08:12)
[2021-09-09] MEDS: guaiFENesin 600 MG TABLET.ER PO SCH (08:12)
[2021-09-09] MEDS: ATORVASTATIN 80 MG TAB PO SCH (08:14)
--- NOTE | 2021-09-09 08:15 | P.PN ---
Subjective Progress Note Date: 09/09/21 Principal diagnosis: Chest pain The patient is an 81-year-old female patient with CAD and prior revascularization was admitted to the hospital after she presented with chest discomfort which she underwent a heart catheterization and that revealed mild disease involving the LAD was chronic total occlusion of the LCx which is known from before and the right coronary artery was not opacified and deemed to be probably chronically occluded. The patient was treated medically. The patient was seen today which is chest pain-free. She stated I feel better overall. She reports no shortness of breath or dizziness or lightheadedness. The pressure is slightly elevated I'm going to increase the dose of oral nitrate to 60 mg by mouth daily. She underwent an echocardiogram which revealed mildly impaired LV function was EF between 40-45% with inferobasal hypokinesia and moderate mitral regurgitation. From the cardiac standpoint of view, we'll get the patient up and around and if she continues to be asymptomatic she potentially can be discharged home and follow-up as an outpatient was Dr. Breen Objective - Vital Signs Vital signs: Vital Signs Temp 98.5 F 09/09/21 08:09 Pulse 57 L 09/09/21 08:09 Resp 16 09/09/21 08:09 BP 165/68 09/09/21 08:09 Pulse Ox 96 09/09/21 08:09 Intake & Output 09/08/21 09/09/21 09/09/21 18:59 06:59 18:59 Intake Total 840 550 Balance 840 550 Intake: IV 10 Invasive Line 1 10 Oral 840 540 Other: Voiding Method Toilet Toilet Bedpan # Voids 0 - Constitutional General appearance: Present: no acute distress - Respiratory Respiratory: bilateral: CTA - Cardiovascular Rhythm: regular Abnormal Heart Sounds: Present: systolic murmur - Labs CBC & Chem 7: 09/08/21 07:55 09/08/21 07:55 Labs: Abnormal Lab Results - Last 24 Hours (Table) 09/08/21 09/08/21 09/08/21 Range/Units 07:55 07:55 12:05 RDW 15.6 H (11.5-15.5) % BUN 18 H (7-17) mg/dL Glucose 174 H (74-99) mg/dL POC Glucose (mg/dL) 117 H (75-99) mg/dL 09/08/21 09/08/21 Range/Units 16:44 20:12 RDW (11.5-15.5) % BUN (7-17) mg/dL Glucose (74-99) mg/dL POC Glucose (mg/dL) 226 H 177 H (75-99) mg/dL Microbiology - Last 24 Hours (Table) 09/06/21 18:45 Blood Culture - Preliminary Blood No Growth after 48 hours Assessment and Plan Assessment: Assessment #1 chest discomfort which has improved #2 severe coronary artery disease #3 valvular heart disease #4 hypertension #5 dyslipidemia #6 mild cardiomyopathy Plan #1 continue the current medical regimen #2 increase the dose of Imdur to 60 mg by mouth daily #3 the patient can be discharged home
[2021-09-09] MEDS ORDERED: ISOSORBIDE MONONITRATE ER 60 MG TAB.ER.24H PO SCH (09:00)
[2021-09-09] MEDS: BUDESONIDE 0.5 MG/2 ML NEBU INHALATION SCH (09:24)
[2021-09-09] MEDS: IPRATROPIUM-ALBUTEROL 3 ML NEB INHALATION PRN (09:24)
--- NOTE | 2021-09-09 10:01 | P.DS ---
<Racheal Matthews - Last Filed: 09/09/21 09:58> Hospital Course: This is an 81-year-old female patient of Dr. Joyce and Dr. Breen with past medical history of coronary artery disease status post angioplasty and stenting RCA with known critical stenosis in the LAD last intervention in October 2018, hyperlipidemia, hypertension, paroxysmal atrial fibrillation, obstructive sleep apnea unable to tolerate CPAP but using home O2 at 2 L at bedtime, diabetes mellitus type 2 diet controlled, gastroesophageal reflux disease, , IBS, morbid obesity status post lap banding and removal with subsequent gastric sleeve. Patient was last hospitalized in 2018 with acute diastolic heart failure with anemia and bradycardia. She was also noted to be in junctional rhythm on beta amirah was held at that time. Patient has been having on-and-off chest pain associated with increased tiredness for the past 10 days. She was admitted at [facility] for similar complaints one week ago. Her medications were readjusted with the addition of metoprolol and metformin. Norvasc was discontinued. Posthospitalization patient had a follow-up visit with Dr. Warren of admission is found to have sinus bradycardia with first-degree heart block. Metoprolol was reduced to 12.5 twice a day. Patient comes in to [facility] today with the acute substernal chest pressure associated with tingling involving upper and lower extremity. Patient took a nitro tablet at home with minimal improvement of pain on arrival to the ER. Nitrol ointment was placed and patient had relief of her symptoms. She has noticed increased sleepiness and tiredness associated with the cough with phlegm production the past week. Patient noted she is wheezy and short of breath. Vitals are reviewed patient is afebrile pulse of 59, respiratory rate 18 blood pressure 207/70 his oxygenation 96% on room air Chest x-ray obtained shows minimal basilar atelectasis or scar no other focal airspace opacity of pleural effusion or pneumothorax noted. 09/07: Patient is seen on the extended stay unit following left heart cat heterization which revealed total occlusion of the RCA at the ostium. Chronic near-total occlusion of the circumflex. Mild disease involving the LAD. Plan is to maximize medical therapy. Patient is currently on aspirin 81 mg daily, Lipitor 80 mg daily, Lopressor 12.5 mg twice daily, lisinopril 10 mg daily. Patient states that her pain is a #2. She denies having any shortness of breath. Blood pressure elevated at 166/67. Anticipate probable discharge home tomorrow. 09/08: Patient was seen on 3 cells found sitting up in a chair in no acute distress. Patient vacation regime was changed today with the addition of a nitrate. She will be followed for 24 more hours and possible discharge tomorrow. Blood pressure range from 166 to 129. Patient denies any chest pain shortness of breath. Her puncture site is clean and dry. 09/09: Patient was seen on 3 cells inventory in the room. Patient states that she is feeling much better today compared to yesterday blood pressure was 165/68, heart rate 57, respirations 16, pulse ox 96% on room air. Lengthy discussion was had regarding medical management versus open heart surgery. Discussed with patient to follow-up with primary care physician and senior corporate accountant to make determination. We will continue patient on antibiotics, Mucinex and steroids and outpatient setting. Imdur and lisinopril added to medical regime. Discharge diagnosis 1. Non-ST elevated myocardial infarction status post heart catheterization with total occlusion of the RCA, near-total occlusion of the circumflex 2. Sinus bradycardia with history of junctional rhythm. 3. Hypertension urgency. 3. Acute bronchitis/COPD exacerbation. 4. Hypersomnia. 5. Type 2 diabetes, controlled. 6. Hyperlipidemia. 7. Anxiety/depression. 8. Asthma/COPD. 9. Paroxysmal atrial fibrillation currently sinus rhythm not on any anticoagulation 10. Obstructive sleep apnea. 11. GERD 12. Morbid obesity status post lap band and removal gastric sleeve, stable DISCHARGE disposition Home with self-care Impression and plan of care have been directed as dictated by the signing physician. Racheal Matthews nurse practitioner acting as scribe for signing physician. Patient Condition at Discharge: Stable Plan - Discharge Summary New Discharge Prescriptions: New predniSONE [Deltasone] 10 mg PO DAILY #18 tab Isosorbide Mononitrate ER [Imdur] 60 mg PO DAILY #30 tablet guaiFENesin [Mucinex] 600 mg PO Q12HR tablet Doxycycline [Vibramycin] 100 mg PO BID 7 Days #14 capsule lisinopriL [Zestril] 10 mg PO DAILY #30 tab Continue Sertraline [Zoloft] 50 mg PO DAILY Multivitamins, Thera [Multivitamin (formulary)] 1 tab PO DAILY Cyanocobalamin [Vitamin B-12] 500 mcg PO DAILY Montelukast Sodium [Singulair] 10 mg PO HS Nitroglycerin Sl Tabs [Nitrostat] 0.4 mg SUBLINGUAL Q5M PRN #25 tab PRN Reason: Chest Pain ALPRAZolam [Xanax] 0.25 mg PO DAILY PRN PRN Reason: Anxiety Budesonide [Pulmicort] 0.5 mg INHALATION RT-BID Atorvastatin [Lipitor] 80 mg PO DAILY amLODIPine [Norvasc] 10 mg PO DAILY #30 tab Fluticasone Nasal Stoughton [Flonase Nasal Stoughton] 1 spray EA NOSTRIL DAILY Furosemide [Lasix] 20 mg PO DAILY Potassium Chloride ER [K-Dur 20] 20 meq PO DAILY metFORMIN HCL 500 mg PO DAILY Albuterol Inhaler [Ventolin Hfa Inhaler] 1 puff INHALATION RT-Q4H PRN PRN Reason: Shortness Of Breath Ibgard 2 tab PO DAILY Metoprolol Tartrate [Lopressor] 12.5 mg PO BID Cholecalciferol [Vitamin D3 (25 Mcg = 1000 Iu)] 25 mcg PO DAILY Loratadine [Claritin] 10 mg PO DAILY Aspirin EC [Ecotrin Low Dose] 81 mg PO DAILY Omeprazole 20 mg PO DAILY Furosemide [Lasix] 40 mg PO HS Discharge Medication List Sertraline [Zoloft] 50 mg PO DAILY 08/17/14 [History] Cyanocobalamin [Vitamin B-12] 500 mcg PO DAILY 03/21/18 [History] Montelukast Sodium [Singulair] 10 mg PO HS 03/21/18 [History] Multivitamins, Thera [Multivitamin (formulary)] 1 tab PO DAILY 03/21/18 [History] Nitroglycerin Sl Tabs [Nitrostat] 0.4 mg SUBLINGUAL Q5M PRN #25 tab 11/04/18 [Rx] ALPRAZolam [Xanax] 0.25 mg PO DAILY PRN 02/08/19 [History] Atorvastatin [Lipitor] 80 mg PO DAILY 07/27/19 [History] Budesonide [Pulmicort] 0.5 mg INHALATION RT-BID 07/27/19 [History] amLODIPine [Norvasc] 10 mg PO DAILY #30 tab 11/01/19 [Rx] Albuterol Inhaler [Ventolin Hfa Inhaler] 1 puff INHALATION RT-Q4H PRN 09/06/21 [History] Aspirin EC [Ecotrin Low Dose] 81 mg PO DAILY 09/06/21 [History] Cholecalciferol [Vitamin D3 (25 Mcg = 1000 Iu)] 25 mcg PO DAILY 09/06/21 [History] Fluticasone Nasal [place]oughton [Flonase Nasal Stoughton] 1 spray EA NOSTRIL DAILY 09/06/21 [History] Furosemide [Lasix] 20 mg PO DAILY 09/06/21 [History] Furosemide [Lasix] 40 mg PO HS 09/06/21 [History] Ibgard 2 tab PO DAILY 09/06/21 [History] Loratadine [Claritin] 10 mg PO DAILY 09/06/21 [History] Metoprolol Tartrate [Lopressor] 12.5 mg PO BID 09/06/21 [History] Omeprazole 20 mg PO DAILY 09/06/21 [History] Potassium Chloride ER [K-Dur 20] 20 meq PO DAILY 09/06/21 [History] metFORMIN HCL 500 mg PO DAILY 09/06/21 [History] Doxycycline [Vibramycin] 100 mg PO BID 7 Days #14 capsule 09/09/21 [Rx] Isosorbide Mononitrate ER [Imdur] 60 mg PO DAILY #30 tablet 09/09/21 [Rx] guaiFENesin [Mucinex] 600 mg PO Q12HR tablet 09/09/21 [Rx] lisinopriL [Zestril] 10 mg PO DAILY #30 tab 09/09/21 [Rx] predniSONE [Deltasone] 10 mg PO DAILY #18 tab 09/09/21 [Rx] Follow up Appointment(s)/Referral(s): Gerri Joyce MD [Primary Care Provider] - 1-2 days (please call Friday to schedule followup appointment within the next week. Office is closed Friday. ) Glenna Breen MD [STAFF PHYSICIAN] - 1 Week (please call office Friday to schedule a followup appointment within the next week. Office is closed Friday. ) Patient Instructions/Handouts: Angina (DC), Chest Pain (DC), Left Heart Catheterization (DC), After Radial Heart Catheterization (GEN) Plan of Treatment: Greater than 35 minutes was utilized and coordinating patient's discharge. <RogelioEvan - Last Filed: 09/11/21 06:10> Providers Date of admission: 09/07/21 14:14 Attending physician: Pierre Roy MD Consults: 09/06/21 14:12 Consult Physician Urgent Consulting Provider: Glenna Breen Consult Reason/Comments: Chest pain Do you want consulting provider notified?: Yes 09/07/21 20:19 Consult Physician Routine Consulting Provider: Damaris Davenport Consult Reason/Comments: coffee ground emesis Do you want consulting provider notified?: Yes Primary care physician: Gerri Joyce
[2021-09-09 11:48] LABS: Glucose,Whole Blood 136 mg/dL (75-99)
[2021-09-09] MEDS: METOPROLOL TARTRATE 12.5 MG TAB PO SCH ×2 (12:10→12:16)
[2021-09-09 12:25] VITALS: BP 143/61; PULSE 64; TEMP 97.8
== END 2021-09-09 14:10 | disposition home or self-care (01) | DRG 281 ==
LOC: EC 12:00 → 6NMEDSUR 14:17 → 3SCARD 22:25 → OBSVTOIN 09-07 14:14
PROVIDERS: ADMIT Internal Medicine; ATTEND Internal Medicine
PROC: B2151ZZ Fluoroscopy of Left Heart using Low Osmolar Contrast (ICD-10-PCS; 2021-09-07)
PROC: B2111ZZ Fluoroscopy of Multiple Coronary Arteries using Low Osmolar Contrast (ICD-10-PCS; 2021-09-07)
PROC: 4A023N7 Measurement of Cardiac Sampling and Pressure, Left Heart, Percutaneous Approach (ICD-10-PCS; principal; 2021-09-07 13:15)
DX: I21.4 Non-ST elevation (NSTEMI) myocardial infarction (principal); I42.9 Cardiomyopathy, unspecified; I50.32 Chronic diastolic (congestive) heart failure; J44.0 Chronic obstructive pulmonary disease with (acute) lower respiratory infection; J44.1 Chronic obstructive pulmonary disease with (acute) exacerbation; E11.9 Type 2 diabetes mellitus without complications; I25.110 Atherosclerotic heart disease of native coronary artery with unstable angina pectoris; E66.01 Morbid (severe) obesity due to excess calories; E78.5 Hyperlipidemia, unspecified; Z20.822 Contact with and (suspected) exposure to COVID-19; F32.A Depression, unspecified; F41.9 Anxiety disorder, unspecified; G47.10 Hypersomnia, unspecified; G47.33 Obstructive sleep apnea (adult) (pediatric); I11.0 Hypertensive heart disease with heart failure; I16.0 Hypertensive urgency; I25.2 Old myocardial infarction; I25.82 Chronic total occlusion of coronary artery; I34.0 Nonrheumatic mitral (valve) insufficiency; I44.0 Atrioventricular block, first degree; I48.0 Paroxysmal atrial fibrillation; J20.9 Acute bronchitis, unspecified; K21.9 Gastro-esophageal reflux disease without esophagitis; Z79.51 Long term (current) use of inhaled steroids; Z79.82 Long term (current) use of aspirin; Z79.84 Long term (current) use of oral hypoglycemic drugs; Z79.899 Other long term (current) drug therapy; Z80.1 Family history of malignant neoplasm of trachea, bronchus and lung; Z80.2 Family history of malignant neoplasm of other respiratory and intrathoracic organs; Z80.52 Family history of malignant neoplasm of bladder; Z80.7 Family history of other malignant neoplasms of lymphoid, hematopoietic and related tissues; Z82.41 Family history of sudden cardiac death; Z82.49 Family history of ischemic heart disease and other diseases of the circulatory system; Z96.1 Presence of intraocular lens; Z95.818 Presence of other cardiac implants and grafts; Z95.5 Presence of coronary angioplasty implant and graft; Z90.710 Acquired absence of both cervix and uterus; Z87.891 Personal history of nicotine dependence; Z85.72 Personal history of non-Hodgkin lymphomas; M19.90 Unspecified osteoarthritis, unspecified site; L40.9 Psoriasis, unspecified; K58.9 Irritable bowel syndrome, unspecified
CPT/HCPCS: 36415; 71046; 80048; 80053; 80061; 82728; 83690; 83735; 83880; 84145; 84443; 84484; 85025; 85027; 85379; 85610; 85730; 86140; 87040; 87635; 93005; 93306; 93458; 94640; 94760; 99285

== ENCOUNTER 2021-12-10 13:31 | Emergency (ER) | payer MEDICARE, OTHER ==
[2021-12-10 14:12] VITALS: BP 134/57; PULSE 55; RESP 16; TEMP 98.2
--- NOTE | 2021-12-10 15:59 | ED ---
General Adult HPI - General Chief complaint: Fall Stated complaint: Fall, hand injury Time Seen by Provider: 12/10/21 15:43 Source: patient, family, RN notes reviewed Mode of arrival: ambulatory Limitations: no limitations - History of Present Illness Initial comments: Patient is a pleasant 81-year-old female presenting to the emergency department following a fall. Patient was getting out of [id number] truck. Patient cut herself with her left hand. Patient did hit her chin. No head injury otherwise or loss of consciousness. Patient is not on blood thinners other than baby aspirin. No neck or back pain. Patient did strike her left knee as well however no longer has discomfort there. Patient has been ambulatory. No chest or abdominal pain. No dyspnea. - Related Data Home Medications Medication Instructions Recorded Confirmed Sertraline [Zoloft] 50 mg PO DAILY 08/17/14 12/10/21 Montelukast Sodium [Singulair] 10 mg PO HS 03/21/18 12/10/21 Multivitamins, Thera [Multivitamin 2 tab PO DAILY 03/21/18 12/10/21 (formulary)] ALPRAZolam [Xanax] 0.25 mg PO BID PRN 02/08/19 12/10/21 Atorvastatin [Lipitor] 80 mg PO HS 07/27/19 12/10/21 Budesonide [Pulmicort] 0.5 mg INHALATION RT-BID 07/27/19 12/10/21 Albuterol Inhaler [Ventolin Hfa 1 puff INHALATION RT-Q4H PRN 09/06/21 12/10/21 Inhaler] Aspirin EC [Ecotrin Low Dose] 81 mg PO DAILY 09/06/21 12/10/21 Cholecalciferol [Vitamin D3 (25 25 mcg PO DAILY 09/06/21 12/10/21 Mcg = 1000 Iu)] Furosemide [Lasix] 20 mg PO HS 09/06/21 12/10/21 Furosemide [Lasix] 40 mg PO DAILY 09/06/21 12/10/21 Ibgard 1 tab PO DAILY 09/06/21 12/10/21 Loratadine [Claritin] 10 mg PO DAILY 09/06/21 12/10/21 Metoprolol Tartrate [Lopressor] 12.5 mg PO BID 09/06/21 12/10/21 Omeprazole 20 mg PO DAILY 09/06/21 12/10/21 Potassium Chloride ER [K-Dur 20] 20 meq PO DAILY 09/06/21 12/10/21 metFORMIN HCL 500 mg PO W/[id number] 09/06/21 12/10/21 Ascorbic Acid [Vitamin C] 500 mg PO DAILY 12/10/21 12/10/21 Cyanocobalamin (Vitamin B-12) 3,000 mcg PO DAILY 12/10/21 12/10/21 [Vitamin B-12] Ferrous Sulfate [Feosol] 325 mg PO BID 12/10/21 12/10/21 Isosorbide Mononitrate ER [Imdur] 30 mg PO DAILY 12/10/21 12/10/21 lisinopriL [Zestril] 5 mg PO DAILY 12/10/21 12/10/21 Previous Rx's Medication Instructions Recorded Nitroglycerin Sl Tabs [Nitrostat] 0.4 mg SUBLINGUAL Q5M PRN #25 tab 11/04/18 amLODIPine [Norvasc] 10 mg PO DAILY #30 tab 07/30/19 Allergies Allergy/AdvReac Type Severity Reaction Status Date / Time Sulfa (Sulfonamide Allergy Unknown Verified 12/10/21 17:03 Antibiotics) Childhood heparin AdvReac bloody nose Verified 12/10/21 17:03 Review of Systems ROS Statement: Those systems with pertinent positive or pertinent negative responses have been documented in the HPI. ROS Other: All systems not noted in ROS Statement are negative. Constitutional: Denies: fever Eyes: Denies: eye pain ENT: Denies: ear pain Respiratory: Denies: cough, dyspnea Cardiovascular: Denies: chest pain Endocrine: Denies: fatigue Gastrointestinal: Denies: abdominal pain Genitourinary: Denies: dysuria Musculoskeletal: Denies: back pain Skin: Denies: rash Neurological: Denies: headache, weakness, confusion, abnormal gait Past Medical History Past Medical History: Atrial Fibrillation, Asthma, Coronary Artery Disease (CAD), COPD, Diabetes Mellitus, GERD/Reflux, Hyperlipidemia, Hypertension, Myocardial Infarction (NV), Osteoarthritis (OA), Pneumonia, Skin Disorder, Sleep Apnea/CPAP/BIPAP Additional Past Medical History / Comment(s): Afib RVR/junctional rhythm that resolved, R femoral AV fistula after cardiac cath that resolved, ABBEY-cannot tolerate Cpap, home oxygen at 2L/NC at HS only, single R upper lobe pulmonary nodule being monitored, silent NV per pt, cardiomyopathy, circumflex occluded, mitral regurg, tricuspid regurg, NIDDM type II, neuropathy bilateral feet, 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 Last Myocardial Infarction Date:: unknown-"silent" History of Any Multi-Drug Resistant Organisms: None Reported Past Surgical History: Bariatric Surgery, Breast Surgery, Cholecystectomy, Heart Catheterization With Stent, Hysterectomy Additional Past Surgical History / Comment(s): 1988 Cardiac cath, 11/06/18 PCI with stents to RCA, lap banding since removed then gastric sleeve, EGD/colonoscopies, R benign breast biopsy, R mastoid process osteomylitis with surgery, brain surgery with 2 titanium screws d/t CSF leak from R ear, bilateral cataract removals/lens implants, epidural pain injections, sinus surgery. Past Anesthesia/Blood Transfusion Reactions: No Reported Reaction Additional Past Anesthesia/Blood Transfusion Reaction / Comment(s): Pt has received blood in past without reaction. Date of Last Stent Placement:: 11/03/18 Past Psychological History: Anxiety, Depression Smoking Status: Former smoker Past Alcohol Use History: None Reported Past Drug Use History: None Reported - Past Family History Brother(s) Family Medical History: Cancer Additional Family Medical History / Comment(s): The patient has a total of 2 full brothers one has history of non-Hodgkin's lymphoma. One has from coronary artery disease and drug abuse. Patient has 6 1/2 brothers all had cancer mostly lung cancer and one had laryngeal cancer. Father Family Medical History: Myocardial Infarction (NV) Additional Family Medical History / Comment(s): Father of a NV at the age of 44yrs. Mother Family Medical History: No Reported History Additional Family Medical History / Comment(s): Mother at age 67 from a motor vehicle accident. General Exam Limitations: no limitations General appearance: alert, in no apparent distress Head exam: Present: other (Contusion to the chin without tenderness) Eye exam: Present: normal appearance Neck exam: Present: normal inspection, tenderness (Minimal tenderness lower cervical spine which patient leaves is from her chronic arthritis.) Respiratory exam: Present: normal lung sounds bilaterally Cardiovascular Exam: Present: regular rate, normal rhythm GI/Abdominal exam: Present: soft. Absent: tenderness Extremities exam: Present: full ROM, tenderness (Mild diffuse tenderness left wrist and hand) Neurological exam: Present: alert, oriented X3, CN II-XII intact. Absent: motor sensory deficit Psychiatric exam: Present: normal affect, normal mood Skin exam: Present: abrasion (/Contusion to chin) Course Vital Signs 12/10/21 14:09 Temperature 98.2 F Pulse Rate 55 L Respiratory 16 Rate Blood Pressure 134/57 O2 Sat by Pulse 96 Oximetry Procedures - Orthopedic Splinting/Casting Injury #1 Side: left Upper Extremity Injury Location: short arm, wrist Upper Extremity Immobilizer: thumb spica Medical Decision Making - Medical Decision Making Patient reevaluated. Patient and family updated. - Radiology Data Radiology results: image reviewed (X-ray cervical spine does not reveal acute abnormality. X-ray of the hand shows osteophytic changes. X-ray of wrist shows widening scapholunate interval suggesting age indeterminate ligament rupture.) Disposition Clinical Impression: Fall, Wrist injury Disposition: HOME SELF-CARE Condition: Stable Instructions (If sedation given, give patient instructions): Wrist Injury (ED) Additional Instructions: Please do follow-up with orthopedics this week. Have orthopedics review x-rays. Wear splint until that time. Ice to affected area. [id number] Tylenol or Motrin as needed. Return for increased pain, worsening or change in symptoms, or other concerns. Is patient prescribed a controlled substance at d/c from ED?: No Referrals: Gerri Joyce MD [Primary Care Provider] - 1-2 days Drew Cornejo PAC [PHYSICIAN TRUCKLOAD OWNER OPERATOR] - 1-2 days Time of Disposition: 18:19
--- NOTE | 2021-12-10 16:17 | XR ---
EXAMINATION TYPE: XR cervical spine comp DATE OF EXAM: 12/10/2021 COMPARISON: None HISTORY: 81-year-old female pain after fall TECHNIQUE: 5 views FINDINGS: No predental space widening. No prevertebral soft tissue swelling. Degenerative changes at the C1 den s articulation. Straightening of the normal cervical lordosis with preserved alignment. Mild uncovert ebral joint spurring lower cervical spine. No significant bony neural foraminal narrowing on either s jose. Normal odontoid view. Disc interspaces are relatively maintained. IMPRESSION: Degenerative changes at the C1 dens articulation. Straightening of the normal cervical lordosis could be positional or due to muscle spasm. No significant bony neuroforaminal narrowing, prevertebral sof t tissue swelling, or malalignment.
--- NOTE | 2021-12-10 16:44 | XR ---
EXAMINATION TYPE: XR wrist complete 4 views LT, XR hand complete 3 views LT DATE OF EXAM: 12/10/2021 COMPARISON: NONE HISTORY: 81-year-old female fall and pain FINDINGS: WRIST: There is fer widening of the scapholunate interval up to 4.8 mm. Vascular calcifications are presen t. Mild degenerative change first CMC joint. Radiocarpal and distal radial ulnar joint as well as the midcarpal compartment otherwise appear intact. Mild soft tissue swelling. Osteopenia. HAND: Severe osteoarthritic change first IP joint and second DIP joint. Moderate to severe third DIP joint. Osteopenia. Additional scattered mild to moderate osteoarthritic change which is at the remaining DI P joints as well as the second and third MCP joints. No acute fracture, subluxation, dislocation. IMPRESSION: 1. Wrist: Fer widening of the scapholunate interval suggests age indeterminate scapholunate ligamen t rupture. Clinically correlate as to acuity. Mild soft tissue swelling. 2. Hand: Osteoarthritic change base of the thumb and scattered throughout the fingers. Osteopenia. No acute osseous abnormality seen.
== END 2021-12-10 18:51 | disposition home or self-care (01) ==
LOC: EC 13:31
DX: S69.92XA Unspecified injury of left wrist, hand and finger(s), initial encounter (principal); S00.83XA Contusion of other part of head, initial encounter; I48.91 Unspecified atrial fibrillation; I25.10 Atherosclerotic heart disease of native coronary artery without angina pectoris; J44.9 Chronic obstructive pulmonary disease, unspecified; E11.9 Type 2 diabetes mellitus without complications; K21.9 Gastro-esophageal reflux disease without esophagitis; E78.5 Hyperlipidemia, unspecified; I10 Essential (primary) hypertension; I25.2 Old myocardial infarction; M19.90 Unspecified osteoarthritis, unspecified site; F41.9 Anxiety disorder, unspecified; F32.A Depression, unspecified; Z79.82 Long term (current) use of aspirin; Z79.84 Long term (current) use of oral hypoglycemic drugs; Z88.2 Allergy status to sulfonamides; Z98.84 Bariatric surgery status; Z90.49 Acquired absence of other specified parts of digestive tract; Z90.710 Acquired absence of both cervix and uterus; Z87.891 Personal history of nicotine dependence; W01.10XA Fall on same level from slipping, tripping and stumbling with subsequent striking against unspecified object, initial encounter
CPT/HCPCS: 29125; 72050; 99283

== ENCOUNTER → 2024-02-25 | Outpatient (CLI) | payer MEDICARE, OTHER ==
[2024-02-25 22:28] LABS: NT-Pro-B-Type Natriuretic Pept 2359 pg/mL (0-450)
[2024-02-25 22:53] LABS: BUN/Creat Ratio 16.67 Ratio (12.00-20.00); Glucose 160 mg/dL (70-110)
[2024-02-25 22:54] LABS: ALT 20 U/L (8-44); AST 23 U/L (13-35); Albumin 4.4 g/dL (3.8-4.9); Albumin/Globulin Ratio 1.76 Ratio (1.60-3.17); Alkaline Phosphatase 68 U/L (41-126); Calcium 9.2 mg/dL (8.7-10.3); Carbon Dioxide 23.5 mmol/L (21.6-31.8); Chloride 104 mmol/L (96-109); Globulin 2.5 g/dL (1.6-3.3); Sodium 142 mmol/L (135-145); Total Bilirubin 0.6 mg/dL (0.3-1.2); Total Protein 6.9 g/dL (6.2-8.2)
== END | disposition home or self-care (01) ==
LOC: LABWHC1 11:33
PROVIDERS: ATTEND Internal Medicine Interventional Cardiology
DX: I34.0 Nonrheumatic mitral (valve) insufficiency (principal)
CPT/HCPCS: 36415; 80053; 83880